=== PATIENT | female | born 1965 | race Caucasian/White ===

== ENCOUNTER 2020-08-04 13:38 | Outpatient (REF) | payer MEDICARE, OTHER, SELFPAY ==
--- NOTE | 2020-08-04 14:36 | XR_ITS ---
EXAMINATION: XR CHEST CLINICAL INFORMATION: HICCUPS. COMPARISON: 11/01/2010 chest radiographs. TECHNIQUE: 2 views of the chest were obtained. FINDINGS: The lungs are clear. The heart and mediastinal structures are unremarkable. IMPRESSION: No acute cardiopulmonary process.
== END 2020-08-04 13:39 | disposition home or self-care (01) ==
LOC: HO.XRAY 13:38
PROVIDERS: PCP Internal Medicine; Referring Provider Internal Medicine; Visit Provider Hospitalist
DX: J45.909 Unspecified asthma, uncomplicated (principal); R06.6 Hiccough; K44.9 Diaphragmatic hernia without obstruction or gangrene
CPT/HCPCS: 71046; 99214

== ENCOUNTER 2020-10-05 13:21 | Emergency (ER) | payer MEDICARE, OTHER, SELFPAY ==
[2020-10-05 13:28] VITALS: BP 114/72; PULSE 91; RESP 18; TEMP 37.3; O2SAT 97; BMI 34.5
--- NOTE | 2020-10-05 13:54 | ECG_ITS ---
Test Reason : WEAKNESS Blood Pressure : / mmHG Vent. Rate : 087 BPM Atrial Rate : 087 BPM P-R Int : 134 ms QRS Dur : 084 ms QT Int : 368 ms P-R-T Axes : 053 -29 024 degrees QTc Int : 442 ms Normal sinus rhythm Nonspecific ST abnormality Abnormal ECG When compared with ECG of 15-AUG-2013 16:06, No significant change was found Referred By: Lizbeth Urena Electronically Signed By:Juan C Bingham
[2020-10-05 14:00] VITALS: BP 124/68; PULSE 88; RESP 18; TEMP 36.9; O2SAT 97
[2020-10-05] MEDS: 0.9 % Sodium Chloride 1,000 ML 999 ML IVCONT (14:17)
[2020-10-05 14:20] LABS: Hematocrit 38.4 % (37-47); Hemoglobin 12.5 g/dl (12.0-16.0); Imm Gran Abs Auto 0.03 X10*3/uL (0.00-0.03); Imm Gran Pct Auto 0.9 % (0.0-0.4); Lymphocytes Absolute Auto 0.7 X10*3/uL (1.2-4.9); Lymphocytes Percent Auto 20.5 % (20-40); MANUAL DIFF FLAG SCAN; Mean Corpuscular HGB Conc 32.6 g/dl (31.0-35.0); Mean Corpuscular Hemoglobin 24.9 pg (27.0-33.0); Mean Corpuscular Volume 76.3 fL (80-98); Mean Platelet Volume 9.3 fL (9.4-12.3); Monocytes Absolute Auto 0.2 X10*3/uL (0.1-1.2); Neutrophils Absolute Auto 2.5 X10*3/uL (2.0-8.3); Neutrophils Percent Auto 73.6 % (45-73); Platelet Count 195 X10*3/uL (160-400); Red Blood Count 5.03 X10*6/uL (4.20-5.50); Red Cell Distribution Width 14.6 % (11.0-16.0); SCAN SMEAR FLAG 1; White Blood Count 3.4 X10*3/uL (4.8-10.8)
[2020-10-05 14:25] LABS: INTERNATIONAL NORM RATIO 1.2 (0.9-1.1); Prothrombin Time 14.2 SEC (10.8-13.0)
[2020-10-05 14:29] LABS: D Dimer < 200 NG/ML
--- NOTE | 2020-10-05 14:39 | PC.NURSE ---
IV ESTABLISHED, BLOOD OBTAINED AND SENT, MEDICATED PER EMAR. AWAITING RESULTS.
[2020-10-05 14:43] LABS: Alanine Aminotransferase 15 U/L (0-31); Albumin Level 4.3 g/dL (3.5-5.0); Alkaline Phosphatase 103 U/L (39-117); Anion Gap 15 (12-20); Aspartate Amino Transferase 24 U/L (5-31); Bilirubin Direct 0.3 mg/dL (0.0-0.5); Bilirubin Total 0.4 mg/dL (0.0-1.0); Blood Urea Nitrogen 7 mg/dL (9-16); Calcium 8.6 mg/dL (8.4-10.2); Carbon Dioxide 25 mmol/L (22-29); Chloride 104 mmol/L (96-108); Creatinine Clr Calc Pharmacy 97.5; Estimated Glomerular Filt Rate > 60; Glucose Random 137 mg/dL (60-115); Lactate Dehydrogenase 228 U/L (122-220); Magnesium 1.6 mg/dL (1.6-2.6); Potassium 4.4 mmol/l (3.3-5.1); Sodium 140 mmol/L (135-145); Total Protein 7.8 g/dL (6.5-8.0)
[2020-10-05 14:46] LABS: Glucose Urine UA NEG (NEG); Leukocyte Esterase Urine NEG (NEG); Nitrite Urine NEG (NEG); PH 6.5 (5.0-8.0); Urine Blood NEG (NEG); Urine Ketones 15 MG/DL (NEG); Urine Protein NEG (NEG-TRACE)
[2020-10-05 14:47] LABS: SLIDE REVIEW VERIFIED
[2020-10-05 14:48] LABS: Appearance Urine CLEAR; Color Urine YELLOW
[2020-10-05 14:49] LABS: Troponin-I High Sensitivity 3.6 ng/L (<3.5-17.0)
[2020-10-05 15:03] LABS: Ferritin 275 ng/mL (10-250)
[2020-10-05] MEDS: methylPREDNISolone Sod Succ/PF 125 MG/2 ML VIAL IVPUSH (15:18)
[2020-10-05] MEDS: ondansetron HCL 4 MG/2 ML VIAL IVPUSH (15:18)
--- NOTE | 2020-10-05 15:21 | ED.URI ---
HPI - URI/Sore Throat General Chief Complaint: Weakness Stated Complaint: covid Time Seen by Provider: 10/05/20 13:30 Source: patient Mode of arrival: ambulatory Limitations: no limitations History of Present Illness HPI Narrative: 55yoF c PMHx of asthma, spasm of diaphragm, hiatal hernia, obstructive sleep apnea on CPAP who was recently diagnosed with COVID-19 on 07/31/2020 presenting to the ED with complaints of generalized weakness, fatigue feeling like she is going to pass out or the past few days with a decreased appetite, cough with wheezing. Reports that she is being followed by [employer] who placed her on a Z-Jimbo and she has taken 3 days total although has been feeling very nauseated therefore was unable to take it today. Also started her on a Medrol Dosepak which she also started. Denies any fevers, vomiting, chest pain, shortness of breath, increased abdominal pain when compared to her prior, back pain, dysuria, constipation or diarrhea. Denies any other symptoms complaints or concerns at this time. Reports everyone in her household is positive for COVID including her and 2 kids. Related Data Home Medications Medication Instructions Recorded Confirmed amlodipine 5 mg tablet 5 mg PO DAILY 07/19/20 10/02/20 flu vac qs 2019(4 yr up)CD(PF) ml IM 07/19/20 10/02/20 furosemide 20 mg tablet 20 mg PO DAILY 07/19/20 10/02/20 hyoscyamine sulfate 0.125 mg tablet 0.125 mg PO QID PRN 07/19/20 10/02/20 metformin 500 mg tablet 2,000 mg PO DAILY 07/19/20 10/02/20 nystatin 100,000 unit/mL oral PO 07/19/20 10/02/20 suspension oxycodone 5 mg tablet 5 mg PO Q4H PRN 07/19/20 10/02/20 potassium chloride 20 mEq 20 meq PO DAILY 07/19/20 10/02/20 tablet,extended release(part/cryst) albuterol sulfate 90 mcg/actuation 1 - 2 puff INHALATION Q4-6H PRN 08/04/20 10/02/20 aerosol inhaler budesonide-formoterol HFA 160 2 puff INHALATION BID 08/04/20 10/02/20 mcg-4.5 mcg/actuation aerosol inhaler cholecalciferol (vitamin D3) 25 25 mcg PO DAILY 08/04/20 10/02/20 mcg (1,000 unit) capsule ibuprofen 800 mg tablet 800 mg PO Q8H 08/04/20 10/02/20 ipratropium 0.5 mg-albuterol 3 mg ml INHALATION QID 08/04/20 10/02/20 (2.5 mg base)/3 mL nebulization soln pantoprazole 40 mg tablet,delayed 40 mg PO DAILY 08/04/20 10/02/20 release vitamin E 600 unit capsule 600 unit PO DAILY 08/04/20 10/02/20 folic acid 1 mg tablet 1 mg PO DAILY 10/02/20 10/02/20 metronidazole 0.75 % topical gel TOPICAL BID 10/02/20 10/02/20 Previous Rx's Medication Instructions Recorded baclofen 10 mg tablet 10 mg PO TID #60 tab 08/04/20 Trelegy Ellipta 100 mcg-62.5 1 inh INHALATION DAILY 90 Days #3 09/05/20 mcg-25 mcg powder for inhalation ea NS azithromycin 500 mg tablet 500 mg PO DAILY 5 Days #5 tab 10/02/20 methylprednisolone 4 mg tablets in See Rx Instructions PO PER PKG DIR 10/02/20 a dose pack 6 Days #21 ea ondansetron HCl [Zofran] 4 mg PO Q8H PRN #10 tab 10/05/20 Allergies Allergy/AdvReac Type Severity Reaction Status Date / Time Penicillins Allergy Severe DIFFICULTY Verified 10/02/20 16:21 BREATHING Review of Systems Review of Systems: Constitutional : No Fever, No Chills, + fatigue, + Malaise ENT/Mouth : No sore throat, No runny nose Eyes: No Discharge Cardiovascular : No Chest Pain, No SOB Respiratory : + Cough, No Sputum, + Wheezing, No Smoke Exposure, No Dyspnea Gastrointestinal : + Nausea, No Vomiting, No Diarrhea Genitourinary : No irregular bleeding, No Dysuria, No Urinary Frequency, No Hematuria, No Urinary Incontinence, No Urgency, No Flank Pain, Musculoskeletal : No Myalgia Skin : No rash Neuro : No Headache Yes all other systems are reviewed and are negative PMFSH Past Medical History Attestation statement: The following information was validated with the patient. Medical History Asthma COVID-19 Hiatal hernia BRIANA on CPAP Spasm of diaphragm Family History Family History Father Liver disease Mother Ovarian cancer Social History Social History Alcohol intake: never Smoking Status: Never smoker Use of substances other than those prescribed or required for medical reasons: No Advance Directives: No Advance Directives Information Provided: Yes Physical Exam Vital Signs: Vital Signs: Last Vital Signs Temp 98.5 F 10/05/20 14:00 Pulse 88 10/05/20 14:00 Resp 18 10/05/20 14:00 BP 124/68 10/05/20 14:00 Pulse Ox 97 10/05/20 14:00 Body Mass Index 34.5 vital signs have been reviewed as normal and appeared to be correct. Blood pressure normal. Heart rate normal. Respiration rate normal. Temperature normal. Oxygen saturation normal. Appearance: Alert. Oriented X3. No acute distress. Head: Normal external exam. Normocephalic. Atraumatic. Eyes: PERRLA. EOMI. Conjunctiva and sclera normal. Eyelids normal. ENT: EAC normal. TM's Normal. Pharynx normal. Uvula midline. Moist mucous membranes. No trismus noted. No drooling noted. No muffled voice noted. Neck: Normal inspection. Neck supple. FROM. No adenopathy. No meningeal signs. No neck mass noted. CVS: Normal heart rate and rhythm. Heart sound normal. No murmurs noted. Pulses normal throughout. Respiratory: No respiratory distress. Painless inspiration. Breath sounds normal. No wheezes/rales/rhonchi noted. Chest nontender. No accessory muscle usage noted or decreased air movement noted. Abdomen: Soft and nontender. Bowel sounds normal in all 4 quadrants. No distention noted. No organomegaly noted. No visible injury noted. Back: Full range of motion noted. Skin: Skin warm and dry. Normal skin color. Normal skin turgor. No rashes/lesions/lacerations noted. Extremities: No lower extremity edema. No calf tenderness noted. Extremities exhibit normal range of motion. Extremities nontender. Neuro: Oriented X 3. No motor deficit. No sensory deficit. Reflexes normal. Course Course Course Narrative: 55yoF c PMHx of asthma, spasm of diaphragm, hiatal hernia, obstructive sleep apnea on CPAP who was recently diagnosed with COVID-19 on 07/31/2020 presenting to the ED with complaints of generalized weakness, fatigue feeling like she is going to pass out or the past few days with a decreased appetite, cough with wheezing. - labs obtained and patient with white blood cell count at 3.4. LDH at 228. Otherwise all other labs are within normal limits including D-dimer less than 200. UA with 15 ketones otherwise no signs of UTI. EKG is normal sinus rhythm no acute ischemic changes noted. Chest x-ray within normal limits no acute processes noted. - patient receiving 1 L of IV fluids, 125 mg of Solu-Medrol and 4 mg of Zofran. Otherwise she will be discharged home with symptomatic treatment along with instructions to return if any new or worsening symptoms to follow-up with primary care provider. Patient understands agrees the plan. MDM - URI/Sore Throat Medical Records Attestation: I reviewed the patient's medical records. Lab Data Attestation: I reviewed the patient's lab results. Result diagrams: 10/05/20 14:14 10/05/20 14:14 Labs: Lab Results 10/05/20 10/05/20 10/05/20 Range/Units 14:14 14:14 14:14 WBC 3.4 L (4.8-10.8) X10*3/uL RBC 5.03 (4.20-5.50) X10*6/uL Hgb 12.5 (12.0-16.0) g/dl Hct 38.4 (37-47) % MCV 76.3 L (80-98) fL MCH 24.9 L (27.0-33.0) pg MCHC 32.6 (31.0-35.0) g/dl RDW 14.6 (11.0-16.0) % Plt Count 195 (160-400) X10*3/uL MPV 9.3 L (9.4-12.3) fL Immature Gran % (Auto) 0.9 H (0.0-0.4) % Neut % (Auto) 73.6 H (45-73) % Lymph % (Auto) 20.5 (20-40) % [place] % (Auto) 5.0 (2-11) % Eos % (Auto) 0.0 (0-4) % Baso % (Auto) 0.0 (0-2) % Lymph # (Auto) 0.7 L (1.2-4.9) X10*3/uL [place] # (Auto) 0.2 (0.1-1.2) X10*3/uL Eos # (Auto) 0.0 (0.0-0.4) X10*3/uL Baso # (Auto) 0.0 (0.0-0.2) X10*3/uL Abs Immat Gran (auto) 0.03 (0.00-0.03) X10*3/uL Absolute Neuts (auto) 2.5 (2.0-8.3) X10*3/uL Absolute Nucleated RBC 0.000 (0.0-0.012) X10*3/uL Nucleated RBC % (auto) 0.0 (0.0-0.2) /100WBC Smear Tech's Comments VERIFIED PT 14.2 H (10.8-13.0) SEC INR 1.2 H (0.9-1.1) D-Dimer < 200 NG/ML Sodium 140 (135-145) mmol/L Potassium 4.4 (3.3-5.1) mmol/l Chloride 104 (96-108) mmol/L Carbon Dioxide 25 (22-29) mmol/L Anion Gap 15 (12-20) BUN 7 L (9-16) mg/dL Creatinine 0.67 (0.5-1.4) mg/dL Estim Creat Clear Calc 97.5 Estimated GFR > 60 Random Glucose 137 H (60-115) mg/dL Calcium 8.6 (8.4-10.2) mg/dL Magnesium 1.6 (1.6-2.6) mg/dL Ferritin 275 H (10-250) ng/mL Total Bilirubin 0.4 (0.0-1.0) mg/dL Direct Bilirubin 0.3 (0.0-0.5) mg/dL AST 24 (5-31) U/L ALT 15 (0-31) U/L Alkaline Phosphatase 103 (39-117) U/L Lactate Dehydrogenase 228 H (122-220) U/L Troponin I High Sens (<3.5-17.0) ng/L Total Protein 7.8 (6.5-8.0) g/dL Albumin 4.3 (3.5-5.0) g/dL Urine Color Urine Appearance Urine pH (5.0-8.0) Ur Specific [place] (1.005-1.025) Urine Protein (NEG-TRACE) MG/DL Urine Glucose (UA) (NEG) MG/DL Urine Ketones (NEG) MG/DL Urine Blood (NEG) Urine Nitrite (NEG) Ur Leukocyte Esterase (NEG) 10/05/20 10/05/20 Range/Units 14:14 14:21 WBC (4.8-10.8) X10*3/uL RBC (4.20-5.50) X10*6/uL Hgb (12.0-16.0) g/dl Hct (37-47) % MCV (80-98) fL MCH (27.0-33.0) pg MCHC (31.0-35.0) g/dl RDW (11.0-16.0) % Plt Count (160-400) X10*3/uL MPV (9.4-12.3) fL Immature Gran % (Auto) (0.0-0.4) % Neut % (Auto) (45-73) % Lymph % (Auto) (20-40) % [place] % (Auto) (2-11) % Eos % (Auto) (0-4) % Baso % (Auto) (0-2) % Lymph # (Auto) (1.2-4.9) X10*3/uL [place] # (Auto) (0.1-1.2) X10*3/uL Eos # (Auto) (0.0-0.4) X10*3/uL Baso # (Auto) (0.0-0.2) X10*3/uL Abs Immat Gran (auto) (0.00-0.03) X10*3/uL Absolute Neuts (auto) (2.0-8.3) X10*3/uL Absolute Nucleated RBC (0.0-0.012) X10*3/uL Nucleated RBC % (auto) (0.0-0.2) /100WBC Smear Tech's Comments PT (10.8-13.0) SEC INR (0.9-1.1) D-Dimer NG/ML Sodium (135-145) mmol/L Potassium (3.3-5.1) mmol/l Chloride (96-108) mmol/L Carbon Dioxide (22-29) mmol/L Anion Gap (12-20) BUN (9-16) mg/dL Creatinine (0.5-1.4) mg/dL Estim Creat Clear Calc Estimated GFR Random Glucose (60-115) mg/dL Calcium (8.4-10.2) mg/dL Magnesium (1.6-2.6) mg/dL Ferritin (10-250) ng/mL Total Bilirubin (0.0-1.0) mg/dL Direct Bilirubin (0.0-0.5) mg/dL AST (5-31) U/L ALT (0-31) U/L Alkaline Phosphatase (39-117) U/L Lactate Dehydrogenase (122-220) U/L Troponin I High Sens 3.6 (<3.5-17.0) ng/L Total Protein (6.5-8.0) g/dL Albumin (3.5-5.0) g/dL Urine Color YELLOW Urine Appearance CLEAR Urine pH 6.5 (5.0-8.0) Ur Specific [place] 1.010 (1.005-1.025) Urine Protein NEG (NEG-TRACE) MG/DL Urine Glucose (UA) NEG (NEG) MG/DL Urine Ketones 15 (NEG) MG/DL Urine Blood NEG (NEG) Urine Nitrite NEG (NEG) Ur Leukocyte Esterase NEG (NEG) Imaging Data Chest x-ray: Attestation: I personally reviewed and interpreted this imaging study as follows: Radiologist's impression: IMPRESSION: No acute cardiopulmonary process. ECG Data Attestation: I personally reviewed and interpreted this ECG as follows: ECG interpretation date: 10/05/20 ECG interpretation time: 14:21 Interpretation: Normal sinus rhythm with a ventricular rate of [address] abnormality no acute ischemic changes noted. On 08/15/2013. Discharge Plan Discharge Clinical Impression: COVID-19, Dehydration Patient Disposition: Home, Self-Care Instructions: Dehydration (ED), COVID-19 (Coronavirus Disease 2019) (ED) Prescriptions: New ondansetron HCl [Zofran] 4 mg tablet 4 mg PO Q8H PRN (Reason: nausea and vomiting) Qty: 10 RF: 0 No Action Trelegy Ellipta 100-62.5-25 mcg blister with device 1 inh inhalation DAILY 90 Days Qty: 3 RF: 1 folic acid 1 mg tablet 1 mg PO DAILY RF: 0 metronidazole 0.75 % gel topical BID RF: 0 methylprednisolone [Medrol (Jimbo)] 4 mg tablets,dose pack See Rx Instructions PO PER PKG DIR 6 Days Qty: 21 RF: 0 azithromycin 500 mg tablet 500 mg PO DAILY 5 Days Qty: 5 RF: 0 pantoprazole 40 mg tablet,delayed release (DR/EC) 40 mg PO DAILY RF: 0 ipratropium-albuterol 0.5 mg-3 mg(2.5 mg base)/3 mL solution for nebulization inhalation QID RF: 0 ibuprofen 800 mg tablet 800 mg PO Q8H RF: 0 budesonide-formoterol [Symbicort] 160-4.5 mcg/actuation HFA aerosol inhaler 2 puff inhalation BID RF: 0 vitamin E 600 unit capsule 600 unit PO DAILY RF: 0 cholecalciferol (vitamin D3) 25 mcg (1,000 unit) capsule 25 mcg PO DAILY RF: 0 baclofen 10 mg tablet 10 mg PO TID Qty: 60 RF: 4 Flucelvax Quad (PF) 60 mcg (15 mcg x 4)/0.5 mL syringe IM RF: 0 amlodipine 5 mg tablet 5 mg PO DAILY RF: 0 furosemide 20 mg tablet 20 mg PO DAILY RF: 0 potassium chloride 20 mEq tablet,ER particles/crystals 20 meq PO DAILY RF: 0 nystatin 100,000 unit/mL suspension PO RF: 0 oxycodone 5 mg tablet 5 mg PO Q4H PRN (Reason: pain) RF: 0 hyoscyamine sulfate 0.125 mg tablet 0.125 mg PO QID PRNRF: 0 metformin 500 mg tablet 2,000 mg PO DAILY RF: 0 albuterol sulfate 90 mcg/actuation HFA aerosol inhaler 1 - 2 puff inhalation Q4-6H PRNRF: 0 Referrals: Physician,Unknown [Primary Care Provider] - 2 days (your pcp) Print Language: Prydeinig
[2020-10-05 15:25] LABS: Procalcitonin 0.03 ng/mL
--- NOTE | 2020-10-05 16:13 | XR_ITS ---
EXAMINATION: XR CHEST CLINICAL INFORMATION: Worsening cough. Positive COVID COMPARISON: 08/04/2020 chest radiographs. TECHNIQUE: Frontal view of the chest was obtained. FINDINGS: Low lung volumes and evaluation. There is been interval development of bilateral infiltrates with peripheral distribution predominantly in the mid and lower lung barrientos. A definitive pleural effusions are not seen. The heart and mediastinal structures are unremarkable. XR/XR chest 1V IMPRESSION: Interval development of bilateral infiltrates. These are nonspecific, but are most consistent with an infectious/inflammatory process and can be seen with COVID pneumonia.
== END 2020-10-05 17:30 | disposition home or self-care (01) ==
PROVIDERS: Physician Assistant Medical; Emergency Provider Emergency Medicine Emergency Medical Services
DX: U07.1 COVID-19 (principal); R53.1 Weakness; E86.0 Dehydration; Z79.899 Other long term (current) drug therapy
CPT/HCPCS: 36415; 71045; 80048; 80076; 81003; 82728; 83615; 83735; 84145; 84484; 85025; 85379; 85610; 93005; 96361; 96374; 96375; 99284; J2405; J2930

== ENCOUNTER → 2021-02-01 15:26 | Outpatient (BNVA) | payer MEDICARE, SELFPAY | PROVIDERS: PCP Internal Medicine; Visit Provider Hospitalist | DX: G47.33 Obstructive sleep apnea (adult) (pediatric) (principal); K44.9 Diaphragmatic hernia without obstruction or gangrene; J45.40 Moderate persistent asthma, uncomplicated; B94.8 Sequelae of other specified infectious and parasitic diseases; R60.0 Localized edema; Z99.89 Dependence on other enabling machines and devices | CPT/HCPCS: 99212 ==

== ENCOUNTER 2021-02-02 10:25 | Outpatient (REF) | payer MEDICARE, SELFPAY ==
--- NOTE | ~2021-02-02 | XR_ITS ---
EXAMINATION: XR CHEST CLINICAL INFORMATION: Sequela of other specified infectious diseases. COMPARISON: 10/05/2020 TECHNIQUE: 2 views of the chest were obtained. FINDINGS: Interval resolution of previously seen airspace disease. Lungs are clear. No pleural effusion or pneumothorax. Normal heart size and pulmonary vascularity. No acute or suspicious osseous abnormalities. XR/XR chest 2V IMPRESSION: Lungs are clear
[2021-02-02 11:38] LABS: MANUAL DIFF FLAG NO
[2021-02-02 11:46] LABS: Basophils Percent Auto 0.6 % (0-2); Eosinophils Absolute Auto 0.4 X10*3/uL (0.0-0.4); Hematocrit 39.5 % (37-47); Hemoglobin 12.7 g/dl (12.0-16.0); Imm Gran Abs Auto 0.04 X10*3/uL (0.00-0.03); Imm Gran Pct Auto 0.6 % (0.0-0.4); Lymphocytes Absolute Auto 2.3 X10*3/uL (1.2-4.9); Lymphocytes Percent Auto 32.3 % (20-40); Mean Corpuscular HGB Conc 32.2 g/dl (31.0-35.0); Mean Corpuscular Hemoglobin 26.6 pg (27.0-33.0); Mean Corpuscular Volume 82.8 fL (80-98); Mean Platelet Volume 10.1 fL (9.4-12.3); Monocytes Absolute Auto 0.6 X10*3/uL (0.1-1.2); Monocytes Percent Auto 8.2 % (2-11); Neutrophils Absolute Auto 3.7 X10*3/uL (2.0-8.3); Neutrophils Percent Auto 53.3 % (45-73); Platelet Count 221 X10*3/uL (160-400); Red Blood Count 4.77 X10*6/uL (4.20-5.50); Red Cell Distribution Width 14.3 % (11.0-16.0)
[2021-02-02 12:10] LABS: B Type Natriuretic Peptide 36 pg/mL (<100)
[2021-02-02 12:20] LABS: Anion Gap 16 (12-20); Blood Urea Nitrogen 23 mg/dL (9-16); Calcium 9.5 mg/dL (8.4-10.2); Carbon Dioxide 24 mmol/L (22-29); Chloride 105 mmol/L (96-108); Estimated Glomerular Filt Rate > 60; Glucose Random 98 mg/dL (60-115); Potassium 4.5 mmol/L (3.3-5.1); Sodium 140 mmol/L (135-145)
[2021-02-02 12:53] LABS: Erythrocyte Sedimentation Rate 6 MM/HR (0-20)
[2021-02-03 12:47] LABS: Anti DNA DS Antibody 1 IU/mL
[2021-02-05 23:03] LABS: Anti Nuclear Antibody Pattern Nuclear, Speckled; Anti Nuclear Antibody Screen POSITIVE (NEGATIVE)
== END 2021-02-02 10:26 | disposition home or self-care (01) ==
LOC: HO.LAB 10:25
PROVIDERS: PCP Internal Medicine; Visit Provider Hospitalist
DX: B94.8 Sequelae of other specified infectious and parasitic diseases (principal); R60.0 Localized edema
CPT/HCPCS: 36415; 71046; 80048; 83880; 85025; 85652; 86038; 86039; 86225

== ENCOUNTER 2021-03-29 11:24 | Outpatient (REF) | payer MEDICARE, SELFPAY ==
[2021-03-30 22:03] LABS: Complement C3 123 mg/dL (83-193)
[2021-03-31 14:57] LABS: Anti DNA DS Antibody 1 IU/mL; Antibody to SS-A Antigen <1.0 NEG AI (<1.0 NEG); Antibody to SS-B Antigen <1.0 NEG AI (<1.0 NEG)
[2021-04-04 07:28] LABS: Aldolase 4.4 U/L (<=8.1)
== END 2021-03-29 11:25 | disposition home or self-care (01) ==
LOC: HO.LAB 11:24
PROVIDERS: PCP Internal Medicine; Visit Provider Hospitalist
DX: R76.8 Other specified abnormal immunological findings in serum (principal)
CPT/HCPCS: 36415; 82085; 82550; 86160; 86225; 86235

== ENCOUNTER → 2021-07-03 08:39 | Outpatient (BNVA) | payer MEDICARE, SELFPAY | PROVIDERS: PCP Internal Medicine; Visit Provider Hospitalist | DX: J45.40 Moderate persistent asthma, uncomplicated (principal); G47.33 Obstructive sleep apnea (adult) (pediatric); K44.9 Diaphragmatic hernia without obstruction or gangrene; R60.0 Localized edema; K43.9 Ventral hernia without obstruction or gangrene; Z99.89 Dependence on other enabling machines and devices | CPT/HCPCS: 99212 ==

== ENCOUNTER 2021-11-23 14:33 | Emergency (ER) | payer MEDICARE, SELFPAY ==
--- NOTE | 2021-11-23 | ECG_ITS ---
Test Reason : dizziness Blood Pressure : / mmHG Vent. Rate : 073 BPM Atrial Rate : 073 BPM P-R Int : 148 ms QRS Dur : 090 ms QT Int : 380 ms P-R-T Axes : 043 -30 015 degrees QTc Int : 418 ms Normal sinus rhythm Left axis deviation Nonspecific ST and T wave abnormality Borderline ECG When compared with ECG of 05-OCT-2020 14:21, No significant change was found Referred By: Generic ED Physician Electronically Signed By:ROSETTE NEWMAN
--- NOTE | ~2021-11-23 | CT_ITS ---
EXAMINATION: CT HEAD WITHOUT CONTRAST CLINICAL INFORMATION: Weakness. COMPARISON: None TECHNIQUE: Contiguous axial imaging was performed from the skull base to vertex without intravenous administration of contrast. This CT examination was performed using dose optimization techniques as appropriate, variously including the following: *Automated exposure control *Adjustment of mA and/or kV according to patient size (this includes techniques or standardized protocols for targeted exams where dose is matched to indication/reason for exam; i.e. extremities or head) *Use of iterative reconstruction technique DLP: 666 mGy-cm FINDINGS: There is no evidence of acute intracranial hemorrhage or territorial infarction. No abnormal mass effect or midline shift is seen. Peace to white matter differentiation is well preserved. No extra-axial fluid collections are identified. The ventricles are normal size. There is no abnormal attenuation within the brain parenchyma. The osseous structures and soft tissues are normal. The mastoid air cells are well aerated. There is a fluid level and mucosal thickening nearly opacifying the left sphenoid sinus with milder aerosolized mucosal secretions and fluid in the partially visualized right sphenoid sinus cavity. There is mild left maxillary and ethmoid sinus mucosal thickening. CT/CT head/brain wo con IMPRESSION: No acute intracranial pathology. Normal CT scan of the head. Fluid level and mucosal thickening nearly opacifying the left sphenoid sinus cavity and scattered areas of mucosal thickening elsewhere in the paranasal sinuses. Correlate for any symptoms of acute sinusitis.
[2021-11-23 14:34] VITALS: BP 148/88; PULSE 81; RESP 16; TEMP 36.6; O2SAT 100; BMI 36.2
--- NOTE | 2021-11-23 16:53 | ED_ITS ---
HPI - General Adult General Chief complaint: General Medical Stated complaint: HIGH BP DIZZY NAUSEA Time Seen by Provider: 11/23/21 16:46 History of Present Illness HPI narrative: Patient is 56-year-old female presents today with having weakness dizziness. Patient worried that her blood pressure is elevated. Her last check was 150/90. Patient has a baseline history of hypertension is on amlodipine. No chest pain no focal weakness. Patient received her coronavirus vaccine and a booster. No nausea no vomiting. Positive generalized malaise. Patient from home. Related Data Home Medications Medication Instructions Recorded Confirmed amlodipine 5 mg tablet 5 mg PO DAILY 07/19/20 10/02/20 flu vac qs 2019(4 yr ml IM 07/19/20 10/02/20 up)CD(PF) furosemide 20 mg tablet 20 mg PO DAILY 07/19/20 10/02/20 hyoscyamine sulfate 0.125 mg 0.125 mg PO QID PRN 07/19/20 10/02/20 tablet metformin 500 mg tablet 2,000 mg PO DAILY 07/19/20 10/02/20 nystatin 100,000 unit/mL PO 07/19/20 10/02/20 oral suspension oxycodone 5 mg tablet 5 mg PO Q4H PRN 07/19/20 10/02/20 potassium chloride 20 mEq 20 meq PO DAILY 07/19/20 10/02/20 tablet,extended release(part/cryst) albuterol sulfate 90 1 - 2 puff INHALATION Q4-6H 08/04/20 10/02/20 mcg/actuation PRN aerosol inhaler budesonide-formoterol HFA 2 puff INHALATION BID 08/04/20 10/02/20 160 mcg-4.5 mcg/actuation aerosol inhaler (Symbicort) cholecalciferol (vitamin D3) 25 mcg PO DAILY 08/04/20 10/02/20 25 mcg (1,000 unit) capsule ibuprofen 800 mg tablet 800 mg PO Q8H 08/04/20 10/02/20 ipratropium 0.5 mg-albuterol ml INHALATION QID 08/04/20 10/02/20 3 mg (2.5 mg base)/3 mL nebulization soln pantoprazole 40 mg 40 mg PO DAILY 08/04/20 10/02/20 tablet,delayed release vitamin E 600 unit capsule 600 unit PO DAILY 08/04/20 10/02/20 folic acid 1 mg tablet 1 mg PO DAILY 10/02/20 10/02/20 metronidazole 0.75 % topical TOPICAL BID 10/02/20 10/02/20 gel cyclobenzaprine 5 mg tablet 5 mg PO TID 02/01/21 enoxaparin 150 mg/mL mg SUBCUT 07/03/21 subcutaneous syringe Previous Rx's Medication Instructions Recorded baclofen 10 mg tablet 10 mg PO TID #60 tab 08/04/20 azithromycin 500 mg tablet 500 mg PO DAILY 5 Days #5 tab 10/02/20 methylprednisolone 4 mg tablets in See Rx Instructions PO PER PKG 10/02/20 DIR a dose pack (Medrol (Jimbo)) 6 Days #21 ea ondansetron HCl 4 mg tablet 4 mg PO Q8H PRN #10 tab 10/05/20 (Zofran) Trelegy Ellipta 100 mcg-62.5 1 inh INHALATION DAILY 90 Days #3 05/10/21 mcg-25 mcg powder for inhalation ea NS (mbwxxskbwsn-kgrhemeox-[id number]) Trelegy Ellipta 100 mcg-62.5 1 inh INHALATION DAILY 90 Days #3 11/22/21 mcg-25 mcg powder for inhalation ea NS (fctmbtwxltq-nhwymmnxv-kbewyokk) Allergies Allergy/AdvReac Type Severity Reaction Status Date / Time Penicillins Allergy Severe DIFFICULTY Verified 07/03/21 09:18 BREATHING Review of Systems Verdana 4l Review of Systems: Verdana 4d No chest pain or Verdana 4d shortness of breath no focal weakness all system reviewed otherwise negative Verdana 4d Yes all other systems are reviewed and are negative [facility] Past Medical History Medical History (Updated 11/23/21 @ 18:10 by Melia Church MD) RENEE positive Asthma COVID-19 Extremity edema Hiatal hernia BRIANA on CPAP 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 Spasm of diaphragm Family History Family History Father Liver disease Mother Ovarian cancer Social History Social History (Updated 07/03/21 @ 09:22 by STACIA Obrien) Alcohol intake: never Patient Tobacco Use Status: Never used Tobacco Advance Directives: Yes Advance Directives Information Provided: Yes Advance Directives on File: No Patient : No Physical Exam Verdana 4l Vital Signs: Verdana 4d Verdana 4d Vital Signs: Verdana 4d Verdana 4Bd Last Vital Signs Verdana 4d [facility] New 4d [facility] New 4d Temp 98.3 F 11/23/21 17:09 [facility] New 4d Pulse 75 11/23/21 17:09 [facility] New 4d Resp 16 11/23/21 17:09 BP 165/81 H 11/23/21 17:09 Pulse Ox 99 11/23/21 17:09 BMI result Body Mass Index 36.2 Appearance: Alert. Oriented X3. No acute distress. Eyes: Pupils equal, round and reactive to light. ENT: Pharynx normal. Neck: Normal inspection. Neck supple. No lymph nodes noted. No crepitus CVS: Normal heart rate and rhythm. Pulses normal. Normal S1 and S2 Respiratory: No respiratory distress. Breath sounds normal. No Wheezing. No rales Abdomen: Soft and nontender. No rigidity. No distention. good BS x4 Skin: Skin warm and dry. Normal skin color. Normal skin turgor. Extremities: No lower extremity edema. Neurovascular intact to all extremities. No Lacerations. No Rash Neuro: Oriented X 3. No motor deficit. No sensory deficit. Moving all extermities. No slurred speech Medical Decision Making MDM Narrative Medical decision making narrative: patient's EKG showed a sinus rhythm heart rate is 70 MA QRS QT within normal limits there is flipped T-waves over V1 to V3 and also in the inferior leads. No acute ST segment elevation noted. These findings were also noted on a previous EKG. patient is neuro intact. EKG normal. Electrolytes unremarkable. COVID test negative. Blood pressure is slightly elevated given reassurance patient told to follow up on an outpatient basis. In stable condition. Lab Data Lab results reviewed: Yes I reviewed the patient's lab results. Result diagrams: 11/23/21 17:29 11/23/21 17:30 Labs: Lab Results 11/23/21 11/23/21 11/23/21 Range/Units 17:29 17:29 17:30 WBC 8.3 (4.8-10.8) X10*3/uL RBC 4.64 (4.20-5.50) X10*6/uL Hgb 12.3 (12.0-16.0) g/dl Hct 37.3 (37.0-47.0) % MCV 80.4 (80.0-98.0) fL MCH 26.5 L (27.0-33.0) pg MCHC 33.0 (31.0-35.0) g/dl RDW 13.6 (11.0-16.0) % Plt Count 227 (160-400) X10*3/uL MPV 9.6 (9.4-12.3) fL Immature Gran % (Auto) 0.4 (0.0-0.4) % Neut % (Auto) 53.6 (45-73) % Lymph % (Auto) 33.3 (20-40) % [place] % (Auto) 7.8 (2-11) % Eos % (Auto) 4.3 H (0-4) % Baso % (Auto) 0.6 (0-2) % Lymph # (Auto) 2.8 (1.2-4.9) X10*3/uL [place] # (Auto) 0.7 (0.1-1.2) X10*3/uL Eos # (Auto) 0.4 (0.0-0.4) X10*3/uL Baso # (Auto) 0.1 (0.0-0.2) X10*3/uL Abs Immat Gran (auto) 0.03 (0.00-0.03) X10*3/uL Absolute Neuts (auto) 4.5 (2.0-8.3) x10*3/uL Absolute Nucleated RBC 0.000 (0.0-0.012) X10*3/uL Nucleated RBC % (auto) 0.0 (0.0-0.2) /100WBC Sodium 141 (135-145) mmol/L Potassium 3.9 (3.3-5.1) mmol/L Chloride 107 (96-108) mmol/L Carbon Dioxide 26 (22-29) mmol/L Anion Gap 12 (12-20) BUN 16 (9-16) mg/dL Creatinine 0.78 (0.5-1.4) mg/dL Estim Creat Clear Calc 84.8 Estimated GFR > 60 Random Glucose 107 (60-115) mg/dL Calcium 9.7 (8.4-10.2) mg/dL Total Bilirubin 0.4 (0.0-1.0) mg/dL Direct Bilirubin 0.2 (0.0-0.5) mg/dL AST 14 D (5-31) U/L ALT 20 (0-31) U/L Alkaline Phosphatase 91 (39-117) U/L Troponin I High Sens (<3.5-17.0) ng/L Total Protein 7.4 (6.5-8.0) g/dL Albumin 4.3 (3.5-5.0) g/dL COVID-19 (CRUZITO) Negative (Negative) COVID-19 Clin Com See Note 11/23/21 Range/Units 17:30 WBC (4.8-10.8) X10*3/uL RBC (4.20-5.50) X10*6/uL Hgb (12.0-16.0) g/dl Hct (37.0-47.0) % MCV (80.0-98.0) fL MCH (27.0-33.0) pg MCHC (31.0-35.0) g/dl RDW (11.0-16.0) % Plt Count (160-400) X10*3/uL MPV (9.4-12.3) fL Immature Gran % (Auto) (0.0-0.4) % Neut % (Auto) (45-73) % Lymph % (Auto) (20-40) % [place] % (Auto) (2-11) % Eos % (Auto) (0-4) % Baso % (Auto) (0-2) % Lymph # (Auto) (1.2-4.9) X10*3/uL [place] # (Auto) (0.1-1.2) X10*3/uL Eos # (Auto) (0.0-0.4) X10*3/uL Baso # (Auto) (0.0-0.2) X10*3/uL Abs Immat Gran (auto) (0.00-0.03) X10*3/uL Absolute Neuts (auto) (2.0-8.3) x10*3/uL Absolute Nucleated RBC (0.0-0.012) X10*3/uL Nucleated RBC % (auto) (0.0-0.2) /100WBC Sodium (135-145) mmol/L Potassium (3.3-5.1) mmol/L Chloride (96-108) mmol/L Carbon Dioxide (22-29) mmol/L Anion Gap (12-20) BUN (9-16) mg/dL Creatinine (0.5-1.4) mg/dL Estim Creat Clear Calc Estimated GFR Random Glucose (60-115) mg/dL Calcium (8.4-10.2) mg/dL Total Bilirubin (0.0-1.0) mg/dL Direct Bilirubin (0.0-0.5) mg/dL AST (5-31) U/L ALT (0-31) U/L Alkaline Phosphatase (39-117) U/L Troponin I High Sens < 3.5 (<3.5-17.0) ng/L Total Protein (6.5-8.0) g/dL Albumin (3.5-5.0) g/dL COVID-19 (CRUZITO) (Negative) COVID-19 Clin Com Discharge Plan Discharge Clinical Impression: Hypertension, Weakness Patient Disposition: Home, Self-Care Instructions: Weakness (ED), Hypertension (ED) Prescriptions: No Action Trelegy Ellipta 100-62.5-25 mcg blister with device 1 inh inhalation DAILY 90 Days Qty: 3 3RF Trelegy Ellipta 100-62.5-25 mcg blister with device 1 inh inhalation DAILY 90 Days Qty: 3 3RF ondansetron HCl [Zofran] 4 mg tablet 4 mg PO Q8H PRN (Reason: nausea and vomiting) Qty: 10 0RF folic acid 1 mg tablet 1 mg PO DAILY 0RF metronidazole 0.75 % gel topical BID 0RF methylprednisolone [Medrol (Jimbo)] 4 mg tablets,dose pack See Rx Instructions PO PER PKG DIR 6 Days Qty: 21 0RF Rx Instructions: PO PER PKG DIR azithromycin 500 mg tablet 500 mg PO DAILY 5 Days Qty: 5 0RF enoxaparin 150 mg/mL syringe subcut 0RF pantoprazole 40 mg tablet,delayed release (DR/EC) 40 mg PO DAILY 0RF ipratropium-albuterol 0.5 mg-3 mg(2.5 mg base)/3 mL solution for nebulization inhalation QID 0RF ibuprofen 800 mg tablet 800 mg PO Q8H 0RF budesonide-formoterol [Symbicort] 160-4.5 mcg/actuation HFA aerosol inhaler 2 puff inhalation BID 0RF vitamin E 600 unit capsule 600 unit PO DAILY 0RF cholecalciferol (vitamin D3) 25 mcg (1,000 unit) capsule 25 mcg PO DAILY 0RF baclofen 10 mg tablet 10 mg PO TID Qty: 60 4RF Flucelvax Quad [id number] (PF) 60 mcg (15 mcg x 4)/0.5 mL syringe IM 0RF amlodipine 5 mg tablet 5 mg PO DAILY 0RF furosemide 20 mg tablet 20 mg PO DAILY 0RF potassium chloride 20 mEq tablet,ER particles/crystals 20 meq PO DAILY 0RF nystatin 100,000 unit/mL suspension PO 0RF oxycodone 5 mg tablet 5 mg PO Q4H PRN (Reason: pain) 0RF hyoscyamine sulfate 0.125 mg tablet 0.125 mg PO QID PRN0RF metformin 500 mg tablet 2,000 mg PO DAILY 0RF albuterol sulfate 90 mcg/actuation HFA aerosol inhaler 1 - 2 puff inhalation Q4-6H PRN0RF Referrals: Bo Hayden MD [Primary Care Provider] - 2 days ( Blood pressure recheck in 2 days.)
[2021-11-23 17:09] VITALS: BP 165/81; PULSE 75; RESP 16; TEMP 36.8; O2SAT 99
[2021-11-23 17:36] LABS: MANUAL DIFF FLAG NO
[2021-11-23 17:48] LABS: Basophils Absolute Auto 0.1 X10*3/uL (0.0-0.2); Basophils Percent Auto 0.6 % (0-2); Eosinophils Absolute Auto 0.4 X10*3/uL (0.0-0.4); Eosinophils Percent Auto 4.3 % (0-4); Hematocrit 37.3 % (37.0-47.0); Hemoglobin 12.3 g/dl (12.0-16.0); Imm Gran Abs Auto 0.03 X10*3/uL (0.00-0.03); Imm Gran Pct Auto 0.4 % (0.0-0.4); Lymphocytes Absolute Auto 2.8 X10*3/uL (1.2-4.9); Lymphocytes Percent Auto 33.3 % (20-40); Mean Corpuscular Hemoglobin 26.5 pg (27.0-33.0); Mean Corpuscular Volume 80.4 fL (80.0-98.0); Mean Platelet Volume 9.6 fL (9.4-12.3); Monocytes Absolute Auto 0.7 X10*3/uL (0.1-1.2); Monocytes Percent Auto 7.8 % (2-11); Neutrophils Absolute Auto 4.5 x10*3/uL (2.0-8.3); Neutrophils Percent Auto 53.6 % (45-73); Platelet Count 227 X10*3/uL (160-400); Red Blood Count 4.64 X10*6/uL (4.20-5.50); Red Cell Distribution Width 13.6 % (11.0-16.0); White Blood Count 8.3 X10*3/uL (4.8-10.8)
[2021-11-23 18:00] VITALS: BP 125/64; PULSE 71; RESP 16; TEMP 36.8; O2SAT 99
[2021-11-23 18:02] LABS: Alanine Aminotransferase 20 U/L (0-31); Albumin Level 4.3 g/dL (3.5-5.0); Alkaline Phosphatase 91 U/L (39-117); Anion Gap 12 (12-20); Aspartate Amino Transferase 14 U/L (5-31); Bilirubin Direct 0.2 mg/dL (0.0-0.5); Bilirubin Total 0.4 mg/dL (0.0-1.0); Blood Urea Nitrogen 16 mg/dL (9-16); Calcium 9.7 mg/dL (8.4-10.2); Carbon Dioxide 26 mmol/L (22-29); Chloride 107 mmol/L (96-108); Creatinine Clr Calc Pharmacy 84.8; Estimated Glomerular Filt Rate > 60; Glucose Random 107 mg/dL (60-115); Potassium 3.9 mmol/L (3.3-5.1); Sodium 141 mmol/L (135-145); Total Protein 7.4 g/dL (6.5-8.0)
[2021-11-23 18:05] LABS: Troponin-I High Sensitivity < 3.5 ng/L (<3.5-17.0)
[2021-11-23 18:06] LABS: COVID-19 Test Negative (Negative); IDNOW Serial# 9DD0AD1C
[2021-11-23 18:20] LABS: TSH reflex Free T4 1.27 uIU/mL (0.32-4.0)
== END 2021-11-23 18:48 | disposition home or self-care (01) ==
PROVIDERS: Emergency Provider Emergency Medicine Emergency Medical Services; PCP Internal Medicine
DX: R53.1 Weakness (principal); I10 Essential (primary) hypertension; Z20.822 Contact with and (suspected) exposure to COVID-19
CPT/HCPCS: 36415; 70450; 80048; 80076; 84443; 84484; 85025; 87635; 93005; 99284

== ENCOUNTER 2021-12-28 09:01 | Outpatient (REF) | payer MEDICARE, SELFPAY ==
[2021-12-28 10:07] LABS: MANUAL DIFF FLAG NO
[2021-12-28 10:27] LABS: Basophils Absolute Auto 0.1 X10*3/uL (0.0-0.2); Basophils Percent Auto 0.9 % (0-2); Eosinophils Absolute Auto 0.4 X10*3/uL (0.0-0.4); Eosinophils Percent Auto 5.2 % (0-4); Hematocrit 40.8 % (37.0-47.0); Hemoglobin 13.1 g/dl (12.0-16.0); Imm Gran Abs Auto 0.03 X10*3/uL (0.00-0.03); Imm Gran Pct Auto 0.4 % (0.0-0.4); Lymphocytes Absolute Auto 2.3 X10*3/uL (1.2-4.9); Lymphocytes Percent Auto 29.7 % (20-40); Mean Corpuscular HGB Conc 32.1 g/dl (31.0-35.0); Mean Corpuscular Hemoglobin 26.7 pg (27.0-33.0); Mean Corpuscular Volume 83.3 fL (80.0-98.0); Monocytes Absolute Auto 0.5 X10*3/uL (0.1-1.2); Monocytes Percent Auto 6.1 % (2-11); Neutrophils Absolute Auto 4.4 x10*3/uL (2.0-8.3); Neutrophils Percent Auto 57.7 % (45-73); Platelet Count 245 X10*3/uL (160-400); Red Cell Distribution Width 14.2 % (11.0-16.0); White Blood Count 7.7 X10*3/uL (4.8-10.8)
[2021-12-28 10:38] LABS: D Dimer High Sensitivity < 150 NG/ML
[2021-12-28 11:06] LABS: Anion Gap 14 (12-20); Blood Urea Nitrogen 22 mg/dL (9-16); Carbon Dioxide 24 mmol/L (22-29); Chloride 105 mmol/L (96-108); Estimated Glomerular Filt Rate > 60; Glucose Random 139 mg/dL (60-115); Potassium 4.4 mmol/L (3.3-5.1); Sodium 139 mmol/L (135-145)
[2021-12-28 11:12] LABS: Erythrocyte Sedimentation Rate 7 MM/HR (0-20)
[2021-12-28 11:23] LABS: TSH reflex Free T4 1.25 uIU/mL (0.32-4.0)
[2021-12-31 12:32] LABS: Anti DNA DS Antibody 1 IU/mL; Antibody to SS-A Antigen <1.0 NEG AI (<1.0 NEG); Antibody to SS-B Antigen <1.0 NEG AI (<1.0 NEG)
[2021-12-31 12:35] LABS: Cardiolipin IgG Ab <2.0 GPL-U/mL; Cardiolipin IgM Ab <2.0 MPL-U/mL
[2021-12-31 13:46] LABS: Complement C3 118 mg/dL (83-193)
== END 2021-12-28 09:02 | disposition home or self-care (01) ==
LOC: HO.LAB 09:01
PROVIDERS: PCP Internal Medicine; Visit Provider Hospitalist
DX: R00.2 Palpitations (principal); R07.9 Chest pain, unspecified; I26.99 Other pulmonary embolism without acute cor pulmonale; B94.8 Sequelae of other specified infectious and parasitic diseases; R60.0 Localized edema; G47.33 Obstructive sleep apnea (adult) (pediatric); K44.9 Diaphragmatic hernia without obstruction or gangrene; J45.40 Moderate persistent asthma, uncomplicated; K43.9 Ventral hernia without obstruction or gangrene; R07.1 Chest pain on breathing; Z99.89 Dependence on other enabling machines and devices
CPT/HCPCS: 36415; 80048; 84443; 85025; 85379; 85652; 86147; 86160; 86225; 86235; 99212

== ENCOUNTER 2022-04-02 15:09 | Outpatient (REF) | payer MEDICARE, SELFPAY ==
--- NOTE | ~2022-04-02 | XR_ITS ---
EXAMINATION: XR CHEST CLINICAL INFORMATION: R07.81 - Pleurodynia COMPARISON: Chest radiographs 02/02/2021, 10/05/2020 TECHNIQUE: 2 views of the chest were obtained. FINDINGS: No pneumothorax or pleural reaction. The lungs are clear. The vascularity is normal. There is no airspace consolidation or groundglass opacity or effusion. Heart size normal. The hilar and mediastinal contours and bony structures are similar to previous exam. No acute intrathoracic disease. XR/XR chest 2V IMPRESSION: Unremarkable examination.
[2022-04-02 15:20] LABS: MANUAL DIFF FLAG NO
[2022-04-02 15:42] LABS: Basophils Absolute Auto 0.1 X10*3/uL (0.0-0.2); Basophils Percent Auto 0.7 % (0-2); Eosinophils Absolute Auto 0.7 X10*3/uL (0.0-0.4); Eosinophils Percent Auto 8.6 % (0-4); Hematocrit 38.3 % (37.0-47.0); Hemoglobin 12.3 g/dl (12.0-16.0); Imm Gran Abs Auto 0.03 X10*3/uL (0.00-0.03); Imm Gran Pct Auto 0.3 % (0.0-0.4); Lymphocytes Absolute Auto 2.8 X10*3/uL (1.2-4.9); Lymphocytes Percent Auto 32.6 % (20-40); Mean Corpuscular HGB Conc 32.1 g/dl (31.0-35.0); Mean Corpuscular Hemoglobin 26.9 pg (27.0-33.0); Mean Corpuscular Volume 83.8 fL (80.0-98.0); Mean Platelet Volume 10.3 fL (9.4-12.3); Monocytes Absolute Auto 0.7 X10*3/uL (0.1-1.2); Monocytes Percent Auto 7.9 % (2-11); Neutrophils Absolute Auto 4.3 x10*3/uL (2.0-8.3); Neutrophils Percent Auto 49.9 % (45-73); Platelet Count 224 X10*3/uL (160-400); Red Blood Count 4.57 X10*6/uL (4.20-5.50); Red Cell Distribution Width 14.3 % (11.0-16.0); White Blood Count 8.6 X10*3/uL (4.8-10.8)
[2022-04-02 16:01] LABS: Alanine Aminotransferase 16 U/L (0-31); Albumin Level 4.4 g/dL (3.5-5.0); Alkaline Phosphatase 79 U/L (39-117); Anion Gap 15 (12-20); Aspartate Amino Transferase 14 U/L (5-31); Bilirubin Direct < 0.2 mg/dL (0.0-0.5); Bilirubin Total 0.3 mg/dL (0.0-1.0); Blood Urea Nitrogen 23 mg/dL (9-16); Calcium 9.4 mg/dL (8.4-10.2); Carbon Dioxide 22 mmol/L (22-29); Chloride 108 mmol/L (96-108); Estimated Glomerular Filt Rate 55; Glucose Random 161 mg/dL (60-115); Potassium 4.5 mmol/L (3.3-5.1); Sodium 140 mmol/L (135-145); Total Protein 7.5 g/dL (6.5-8.0)
[2022-04-02 16:31] LABS: Erythrocyte Sedimentation Rate 7 MM/HR (0-20)
== END 2022-04-02 15:10 | disposition home or self-care (01) ==
LOC: HO.LAB 15:09
PROVIDERS: PCP Internal Medicine; Visit Provider Hospitalist
DX: R07.81 Pleurodynia (principal); R07.9 Chest pain, unspecified; J45.40 Moderate persistent asthma, uncomplicated; K44.9 Diaphragmatic hernia without obstruction or gangrene; I26.99 Other pulmonary embolism without acute cor pulmonale; G47.33 Obstructive sleep apnea (adult) (pediatric); Z88.0 Allergy status to penicillin; Z99.89 Dependence on other enabling machines and devices
CPT/HCPCS: 36415; 71046; 80048; 80076; 85025; 85652; 99212

== ENCOUNTER 2022-09-30 15:01 | Outpatient (REF) | payer MEDICARE, SELFPAY ==
[2022-09-30 15:19] LABS: MANUAL DIFF FLAG NO
[2022-09-30 16:33] LABS: Basophils Absolute Auto 0.1 X10*3/uL (0.0-0.2); Basophils Percent Auto 0.8 % (0-2); Eosinophils Absolute Auto 0.3 X10*3/uL (0.0-0.4); Eosinophils Percent Auto 3.7 % (0-4); Hematocrit 38.9 % (37.0-47.0); Hemoglobin 12.7 g/dl (12.0-16.0); Imm Gran Abs Auto 0.03 X10*3/uL (0.00-0.03); Imm Gran Pct Auto 0.4 % (0.0-0.4); Lymphocytes Absolute Auto 2.8 X10*3/uL (1.2-4.9); Lymphocytes Percent Auto 33.2 % (20-40); Mean Corpuscular HGB Conc 32.6 g/dl (31.0-35.0); Mean Corpuscular Hemoglobin 26.8 pg (27.0-33.0); Mean Corpuscular Volume 82.1 fL (80.0-98.0); Mean Platelet Volume 10.6 fL (9.4-12.3); Monocytes Absolute Auto 0.6 X10*3/uL (0.1-1.2); Monocytes Percent Auto 7.2 % (2-11); Neutrophils Absolute Auto 4.5 x10*3/uL (2.0-8.3); Neutrophils Percent Auto 54.7 % (45-73); Platelet Count 254 X10*3/uL (160-400); Red Blood Count 4.74 X10*6/uL (4.20-5.50); Red Cell Distribution Width 13.7 % (11.0-16.0); White Blood Count 8.3 X10*3/uL (4.8-10.8)
[2022-09-30 16:56] LABS: Alanine Aminotransferase 15 U/L (0-31); Albumin Level 4.5 g/dL (3.5-5.0); Alkaline Phosphatase 89 U/L (39-117); Anion Gap 13 (12-20); Aspartate Amino Transferase 14 U/L (5-31); Bilirubin Direct < 0.2 mg/dL (0.0-0.5); Bilirubin Total 0.3 mg/dL (0.0-1.0); Blood Urea Nitrogen 26 mg/dL (9-16); Calcium 9.6 mg/dL (8.4-10.2); Carbon Dioxide 24 mmol/L (22-29); Chloride 105 mmol/L (96-108); Estimated Glomerular Filt Rate > 60; Glucose Random 138 mg/dL (60-115); Potassium 4.1 mmol/L (3.3-5.1); Sodium 138 mmol/L (135-145); Total Protein 7.4 g/dL (6.5-8.0)
[2022-09-30 17:12] LABS: Erythrocyte Sedimentation Rate 7 MM/HR (0-20)
[2022-10-03 14:44] LABS: Cyclic Citrullinated Peptide <16 UNITS
[2022-10-06 11:33] LABS: Anti Nuclear Antibody Pattern Nuclear, Speckled; Anti Nuclear Antibody Screen POSITIVE (NEGATIVE)
== END 2022-09-30 15:02 | disposition home or self-care (01) ==
LOC: HO.LAB 15:01
PROVIDERS: PCP Internal Medicine; Visit Provider Hospitalist
DX: R07.81 Pleurodynia (principal); R06.00 Dyspnea, unspecified; M19.90 Unspecified osteoarthritis, unspecified site; R07.1 Chest pain on breathing; K44.9 Diaphragmatic hernia without obstruction or gangrene; K43.9 Ventral hernia without obstruction or gangrene; G47.33 Obstructive sleep apnea (adult) (pediatric); Z99.89 Dependence on other enabling machines and devices
CPT/HCPCS: 36415; 80048; 80076; 85025; 85652; 86038; 86039; 86200; 99212

== ENCOUNTER 2023-03-27 14:34 | Outpatient (REF) | payer MEDICARE, SELFPAY ==
[2023-03-27 15:43] LABS: MANUAL DIFF FLAG NO
[2023-03-27 17:40] LABS: Basophils Absolute Auto 0.1 X10*3/uL (0.0-0.2); Eosinophils Absolute Auto 0.4 X10*3/uL (0.0-0.4); Eosinophils Percent Auto 4.8 % (0-4); Hematocrit 38.6 % (37.0-47.0); Hemoglobin 12.4 g/dl (12.0-16.0); Imm Gran Abs Auto 0.04 X10*3/uL (0.00-0.03); Imm Gran Pct Auto 0.5 % (0.0-0.4); Lymphocytes Absolute Auto 2.5 X10*3/uL (1.2-4.9); Lymphocytes Percent Auto 31.3 % (20-40); Mean Corpuscular HGB Conc 32.1 g/dl (31.0-35.0); Mean Corpuscular Hemoglobin 27.1 pg (27.0-33.0); Mean Corpuscular Volume 84.3 fL (80.0-98.0); Mean Platelet Volume 10.2 fL (9.4-12.3); Monocytes Absolute Auto 0.6 X10*3/uL (0.1-1.2); Monocytes Percent Auto 7.8 % (2-11); Neutrophils Absolute Auto 4.3 x10*3/uL (2.0-8.3); Neutrophils Percent Auto 54.6 % (45-73); Platelet Count 249 X10*3/uL (160-400); Red Blood Count 4.58 X10*6/uL (4.20-5.50); Red Cell Distribution Width 13.9 % (11.0-16.0); White Blood Count 7.9 X10*3/uL (4.8-10.8)
[2023-03-27 17:49] LABS: D Dimer High Sensitivity < 150 NG/ML
[2023-03-27 18:15] LABS: Anion Gap 15 (12-20); Blood Urea Nitrogen 23 mg/dL (9-16); Calcium 9.4 mg/dL (8.4-10.2); Carbon Dioxide 22 mmol/L (22-29); Chloride 107 mmol/L (96-108); Estimated Glomerular Filt Rate 57; Glucose Random 98 mg/dL (60-115); Magnesium 1.5 mg/dL (1.6-2.6); Potassium 4.8 mmol/L (3.3-5.1); Sodium 139 mmol/L (135-145)
[2023-03-27 18:36] LABS: Erythrocyte Sedimentation Rate 7 MM/HR (0-20)
== END 2023-03-27 14:35 | disposition home or self-care (01) ==
LOC: HO.LAB 14:34
PROVIDERS: PCP Internal Medicine; Visit Provider Hospitalist
DX: J45.40 Moderate persistent asthma, uncomplicated (principal); R60.0 Localized edema; R07.81 Pleurodynia; K44.9 Diaphragmatic hernia without obstruction or gangrene; M19.90 Unspecified osteoarthritis, unspecified site; G47.33 Obstructive sleep apnea (adult) (pediatric); R76.8 Other specified abnormal immunological findings in serum; Z79.899 Other long term (current) drug therapy; Z99.89 Dependence on other enabling machines and devices
CPT/HCPCS: 36415; 80048; 83735; 85025; 85379; 85652; 99212

== ENCOUNTER 2023-04-11 15:02 | Outpatient (REF) | payer MEDICARE, SELFPAY ==
--- NOTE | ~2023-04-11 | XR_ITS ---
EXAMINATION: XR CHEST CLINICAL INFORMATION: Pleurodynia COMPARISON: Previous chest x-ray most recent March 2022 TECHNIQUE: 2 views of the chest were obtained. FINDINGS: The cardiac and mediastinal contours are stable. The lungs are clear. No pleural effusion or pneumothorax. Old right rib fractures. Degenerative changes of the spine. XR/XR chest 2V IMPRESSION: No evidence for acute disease in the chest.
== END 2023-04-11 15:03 | disposition home or self-care (01) ==
LOC: HO.XRAY 15:02
PROVIDERS: Visit Provider Hospitalist
DX: R07.81 Pleurodynia (principal)
CPT/HCPCS: 71046

== ENCOUNTER 2023-09-04 13:01 | Outpatient (AMB) | payer MEDICARE, SELFPAY ==
--- NOTE | 2023-09-04 13:11 | A.OFFVIS_ITS ---
Intake Vital Signs 09/04/23 13:12 Height 5 ft 2 in Weight 197 lb BMI 36.0 Pulse 85 Pulse Source Pulse Oximeter Pulse Oximetry (%) 96 Oxygen Delivery Method Room Air Intake Visit Reasons: asthma Hot Car Operator Required: No Allergies Penicillins Allergy (Severe, Verified 09/04/23 13:13) DIFFICULTY BREATHING HPI HPI Comments History of Present Illness Details The patient is a 58-year-old woman with known history of asthma in addition to hiatal hernia. over the summer she did have surgery for her abdominal hernia with significant manipulations of the muscles of her torso. After surgery she has been complaining of some pleuritic back and chest pain. Primarily to the left side and is not always. Moderate in severity. It does keep her from taking a deep breath. She did undergo a CT scan of the abdomen over the summer demonstrating some atelectasis mainly to the left base but also to the right. She is also having issues with her inhalers. She was responded very well to the Symbicort and Tudorza. However, her insurance is no longer covering the Tudorza. I have given a prescription with free sample of trelegy, but she was afraid to use it. We talked about and she agreed to use it she will pick it up to pharmacy. In the meantime she appears to have some diaphragmatic spasms and will be recently to try antispasmodic medication to see if she gets some relief. 07/03/2021 The patient is here for a [facility] follow-up visit. Since we last spoke she did follow-up with vascular surgery. 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 Therefore, the patient was placed on Lovenox. She is scheduled to follow-up with a cross country coach soon. She is getting bruising in the abdomen. She also was complaining of while abdominal distension. It may be that her hernia is reoccurring. In regards her breathing breathing seems to be doing well on the current respiratory therapy. She has not had to use any prednisone. She does have a rescue inhaler that she uses seldom. the CPAP therapy continues to be affecting beneficial. she has been sometimes not using it. I did reassure her that she should continue using it on a regular basis. She has had a lot of weight loss. If the patient feels like she is doing better at some point we can repeat her sleep study. However, now with all her medical issues treating obstructive sleep apnea and will be very important. 12/28/2021 the patient is here for a pulm onary follow-up visit. She is off the Lovenox now. She is complaining of pleuritic chest discomfort. Primarily on the left lung area. With a history of blood clots in genetic mutation I will have her undergo a D-dimer. In the meantime she is going to need surgery for her recurrent hernia. This all is scheduled to have been in the coming weeks. Her respiratory status is stable. She continues on the trilogy with good effect. Denies any significant shortness of breath. She does continue on the CPAP. The CPAP therapy continues to be affecting beneficial. She is using more than 4 hours a night. Today the patient will go for blood work. Still concern for the possibility of connective tissue condition potentially resulting in pleuritis. Therefore additional blood work will be requested. 04/02/2022 the patient is here for a pulmonary follow-up visit. Since we last spoke the patient was evaluated by surgery at [facility]. She did undergo her ventral surgery repair. It was an extensive surgery requiring a significant incision. The patient was recovering well and then started developing right upper quadrant pleuritic chest discomfort. She also developed a cough productive in nature with yellow sputum. She did discuss this with her surgeon. The felt it was related to the fact that she was cutting down her pain medication. Today the patient has been feeling a little better although she still coughing her discomfort still there [id number] severity. On my examination she does have some bronchial breath sounds bringing up the possibility of a right lower lobe airspace disease. The patient is high risk due to their extensive abdominal surgery and likely atelectasis. Will go ahead and treated for potential pneumonia and will also request blood work and a chest x-ray. Patient continues use her CPAP. CPAP therapy has been affecting beneficial. She did start using after surgery because her discomfort but I did encourage her to start using it. 09/30/2022 the patient is here for a pulmonary follow-up visit. From a respiratory status the patient is doing better on the Trelegy. However, it is extremely expensive for. In addition to that she hits the donut hole in the zarate that is very difficult for her to get any of her medications. Therefore we talked about different options in order to see if we can get her on a regimen that is more financially reasonable. She will try to use a good Rx card for AirDuo and will send Incruse to the pharmacy. she still complains of significant arthralgias and myalgias. She is concerned about the positive RENEE. She is following closely with Rheumatology. She is considering a 2nd opinion. In addition to this the patient has underlying sleep apnea. The CPAP therapy has been affecting beneficial. She does use it for more than 4 hours a night. 03/27/2023 the patient is here for a pulmonary follow-up visit. She continues on the Trelegy. She was able to get some samples and became a little bit more recently. I do also have a coupon card to provide her. Therefore she can continue her respiratory medications that appears to be working for her. She is still having episodes of pleuritic back and chest pain. Primarily on the right side. Denies any palpitations or any hemoptysis. She does have some lower extremity edema. We did have her undergo blood work including a D-dimer that was negative. Therefore we can hold off on a CT angio. In the meantime will request a chest x-ray to see if acted explain her ongoing symptoms. If the x- ray is not helpful then will have to get a CT scan of the chest to address for any underlying pleural base disease. The patient does have underlying connective tissue disorders. she also has significant arthritis. She has had a positive RENEE and the rest of the workup that has been done has been inconclusive. Therefore, will refer to Rheumatology in order to further evaluate for connective tissue conditions. Patient continues use her CPAP every night. CPAP therapy continues to be affecting beneficial. She does use it for 4 hours a night. 09/04/2023 the patient is here for a pulmonary follow-up visit. The patient is still recovering from her abdominal surgeries. She is feeling well though he is had significant amount of discomfort. She had more fluid accumulation had to have a drain replaced. The area appears to be healing better. In the meantime she has not been using her CPAP. She has been sleeping better and she has not been complaining of significant snoring or daytime drowsiness. Her Waldwick score is decreased down to 7/24. Therefore will continue to monitor her symptoms and she will continue with positional therapy. We will consider repeating the sleep study during the next visit. She also stopped using the Trelegy inhaler because it was too expensive. She does have the nebulized therapy with DuoNeb that she uses up to twice a day which appears to be effective and more reasonable giles. Therefore will go ahead and hold off on the Trelegy at this time. The patient also has been complaining of some left- sided pleuritic chest discomfort and back discomfort upon deep breathing specially after her surgery. She has not had a chest x-ray as of yet. The for will have her get an x-ray today. She will continue with the current respiratory therapy and will follow-up in 6-8 months. Which time will discuss the whole CPAP issue. If her chest x-ray is abnormal I will call her further recommendations based on the forthcoming data. 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 COVID-19 BRIANA on CPAP Hiatal hernia Asthma Spasm of diaphragm Family History Father Liver disease Mother Ovarian cancer Social History (Updated 07/03/21 @ 09:22 by STACIA Obrien) Alcohol intake: never Patient Tobacco Use Status: Never used Tobacco Review of Systems Const Denies fever(s) and Denies night sweats ENT Denies change in voice, Denies lip swelling, Denies mouth pain, Reports nasal congestion, Reports nasal discharge and Denies tongue swelling Card Reports chest pain, Reports leg edema and Reports dyspnea on exertion Resp Denies change in phlegm color, Denies chest congestion, Reports cough, Denies hemoptysis, Reports pain on inspiration, Reports pain with cough, Reports dyspnea on exertion and Denies wheezing GI Reports abdominal pain Musc Reports as per HPI, Reports back pain, Reports myalgias and Reports arthralgias Skin/Breast Denies rash Neuro Denies Neuro-related abnormal movements Psych Denies no additional complaints Errol/Lymph Denies easy bleeding and Denies lymphadenopathy Aller/Immun Denies lip swelling, Denies tongue swelling and Denies wheezing Physical Exam Vital Signs: Last Vital Signs Pulse 85 09/04/23 13:12 Pulse Ox 96 09/04/23 13:12 Oxygen Delivery Method Room Air 09/04/23 13:12 BMI result Body Mass Index 36.0 Const General: alert Neck Neck: Yes normal visual inspection, Yes full ROM and Yes no lymphadenopathy Chest Chest palpation & inspection: normal inspection of the chest Resp Effort & Inspection: normal respiratory effort Auscultation: diminished lung sounds Cardio Rate: regular rate Rhythm: regular rhythm Heart sounds: S1 normal heart sound present and S2 normal heart sound present GI Palpation (GI): Soft to palpation, nontender and Other GI palpation findings present (reducible ventral hernia) Auscultation: normal bowel sounds Skin General skin exam: rashes and/or lesions noted Extrem General: Yes edema (LE bilateral-non pitting) Right upper extremity: no cyanosis Immunizations pneumoc 20-edgardo conj-dip cr(PF) 0.5 mL IM syringe Performing Provider: Richard Olivares MD Performing Location: [facility] Administered by: Katerina Salamanca LPN on 09/04/23 13:51 Dose Route Admin Location Dispensed Lot Number Expiration Date NDC Senior User Experience Architect 0.5 mL IM Left Deltoid 0.5 mL [id number] 05/19/24 1323-4125-86 [employer] VIS Given Date VIS Provided VIS Publication Date 09/04/23 Single Vaccine 23 Eligibility Eligibility Date Funding Source Not [facility] Eligible 09/04/23 Private Assessment & Plan Assessment & Plan (1) BRIANA on CPAP: Code(s): G47.33 - Obstructive sleep apnea (adult) (pediatric); Z99.89 - Dependence on other enabling machines and devices (2) Hiatal hernia: Code(s): K44.9 - Diaphragmatic hernia without obstruction or gangrene (3) Asthma: Code(s): J45.909 - Unspecified asthma, uncomplicated Qualifiers: Asthma complication type: uncomplicated Asthma persistence: persistent Asthma severity: moderate Qualified Code(s): J45.40 - Moderate persistent asthma, uncomplicated (4) Ventral hernia: Comment: s/p repair Code(s): K43.9 - Ventral hernia without obstruction or gangrene Qualifiers: Obstruction and gangrene presence: without obstruction or gangrene Qualified Code(s): K43.9 - Ventral hernia without obstruction or gangrene (5) Pleuritic chest pain: Code(s): R07.81 - Pleurodynia Plan holding continue Trelegy DuoNebs as needed CXR hold CPAP, will reorder PSG in the future to reassess Follow-up 6-8 months Orders: Orders XR chest 2V Today R07.81 - Pleurodynia Pneumococcal 20 Immunization Today Z23 - Encounter for immunization Coding Level of Care Code Est Pt Level 4 (63598) Diagnoses BRIANA on CPAP G47.33; Z99.89 Hiatal hernia K44.9 Moderate persistent asthma without complication J45.40 Asthma complication type: uncomplicated Asthma persistence: persistent Asthma severity: moderate Ventral hernia without obstruction or gangrene K43.9 Obstruction and gangrene presence: without obstruction or gangrene Pleuritic chest pain R07.81 Time Spent (min) 16
[2023-09-04 13:12] VITALS: PULSE 85; O2SAT 96; BMI 36.0
== END 2023-09-04 13:33 | disposition home or self-care (01) ==
PROVIDERS: PCP Internal Medicine; Visit Provider Hospitalist
DX: G47.33 Obstructive sleep apnea (adult) (pediatric) (principal); Z99.89 Dependence on other enabling machines and devices; K44.9 Diaphragmatic hernia without obstruction or gangrene; J45.40 Moderate persistent asthma, uncomplicated; K43.9 Ventral hernia without obstruction or gangrene; R07.81 Pleurodynia
CPT/HCPCS: 99214

== ENCOUNTER 2023-09-04 13:01 | Outpatient (REF) | payer MEDICARE, SELFPAY ==
--- NOTE | ~2023-09-04 | XR_ITS ---
EXAMINATION: XR CHEST CLINICAL INFORMATION: Reason for Exam R07.81 - Pleurodynia COMPARISON: Chest radiograph 04/11/2023 TECHNIQUE: 2 views of the chest FINDINGS: Lines and tubes: None. Clear lungs. No pleural effusion. No pneumothorax. Unchanged cardiomediastinal silhouette. XR/XR chest 2V IMPRESSION: * Clear lungs.
== END 2023-09-04 13:02 | disposition home or self-care (01) ==
LOC: HO.XRAY 13:01
PROVIDERS: PCP Internal Medicine; Visit Provider Hospitalist
DX: Z23 Encounter for immunization (principal); R07.81 Pleurodynia
CPT/HCPCS: 71046; 90471; 90677; 99212

== ENCOUNTER 2023-10-07 10:46 | Outpatient (AMB) | payer MEDICARE, SELFPAY ==
--- NOTE | 2023-10-07 10:51 | MHC.OFFVIS ---
Intake Vital Signs 10/07/23 10:52 Height 5 ft 2 in Weight 200 lb 13.458 oz BMI 36.7 BP 100/60 Blood Pressure Location Rt radial Pulse 83 Pulse Source Pulse Oximeter Temp 97 F Temp Source Skin Pulse Oximetry (%) 99 Oxygen Delivery Method Room Air Intake Visit Reasons: OA/abnormal lab Intake Note: New pt presents today for consult. H/o OA Former patient of Dr. Fei ATC. Loss Control Engineer Required: No Accompanied by: Self / Same As Patient Allergies Penicillins Allergy (Severe, Verified 10/07/23 10:56) DIFFICULTY BREATHING Medication List - Last Reconciled 10/07/23 by Arti Bustillos MD albuterol sulfate 90 mcg/actuation 1 - 2 puffs inhalation Q4-6H PRN cetirizine (Zyrtec) 10 mg PO DAILY PRN cholecalciferol (vitamin D3) 25 mcg PO DAILY ipratropium-albuterol 0.5 mg-3 mg(2.5 mg base)/3 mL 3 mL inhalation QID losartan 50 mg PO DAILY metformin 1,000 mg PO BID naproxen sodium (Aleve) 220 mg PO BID PRN nebulizers As directed pantoprazole 40 mg PO DAILY Trelegy Ellipta 100-62.5-25 mcg (hwhdwowntbz-[id number]) 1 inh inhalation DAILY 90 days NS HPI HPI Comments History of Present Illness Details This is a 58-year-old female presents for evaluation of positive RENEE. Patient states that for years she has been having diffuse body pains and weakness. She has pain in her hands, shoulders, legs, shins, knees. She has going up and down the stairs. She had feels that she has muscle pain and weakness. She is unaware of any family history of an autoimmune rheumatic disease. 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 There is no history of recurrent miscarriages. She denies any skin rashes. Denies any fevers. She denies any history suggestive of Raynaud's. She was evaluated by at least 2 rheumatologists. Most recent of which was Dr. Enamorado at [facility] within last year. She states that she was seen 4-[address] Enamorado and blood work was ordered and it was unremarkable according to patient. 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 COVID-19 BRIANA on CPAP Hiatal hernia Asthma Spasm of diaphragm Surgical History Hx of hernia repair Family History Father Liver disease Alcoholic cirrhosis of liver Mother Ovarian cancer Social History Household Members: Spouse and Children Alcohol intake: current Alcohol intake frequency: holidays/special occasions only Patient Tobacco Use Status: Never used Tobacco Current occupational status: unemployed Female Reproductive History Menstrual Total pregnancies: 2 Review of Systems Const Reports fatigue, Reports weakness and Reports weight loss Eyes Reports dry eyes Card Reports dyspnea Resp Reports dyspnea and Reports wheezing GI Reports heartburn Musc Reports arthralgias, Reports muscle weakness and Reports stiffness Skin/Breast Reports alopecia and Reports unusual bruising Neuro Reports weakness Psych Reports depression Endo Reports fatigue and Reports polydipsia Aller/Immun Reports wheezing Physical Exam Vital Signs: Last Vital Signs Temp 97 F 10/07/23 10:52 Pulse 83 10/07/23 10:52 BP 100/60 10/07/23 10:52 Pulse Ox 99 10/07/23 10:52 Oxygen Delivery Method Room Air 10/07/23 10:52 BMI result Body Mass Index 36.7 Const General: cooperative, healthy appearing and comfortable Nutritional Appearance: obese morbidly obese Orientation/consciousness: patient oriented x3 Limitations: no limitations HEENT Head: Yes normocephalic and Yes atraumatic Mouth: moist mucous membranes Resp Effort & Inspection: normal respiratory effort and able to speak in complete sentences Auscultation: clear to auscultation bilaterally Cardio Rate: regular rate Rhythm: regular rhythm Skin General skin exam: no rashes or lesions noted Neuro General: patient oriented x3 Extrem Other: Osteoarthritic changes of both hands with prominent Heberden's nodes but no active synovitis Positive empty cans test and positive speed's test bilaterally Negative infraspinatus test and lift-off test bilaterally Normal nailfold capillaroscopy Bilateral knee crepitus and pain with full flexion and extension Bilateral trochanteric bursa area tenderness Bilateral tender calf muscles without swelling, erythema or tightness Assessment & Plan Assessment & Plan (1) RENEE positive: Code(s): R76.8 - Other specified abnormal immunological findings in serum Plan: This is a 58-year-old female who presents for evaluation of a positive RENEE. Previous labs showed positive RENEE in high titers, in a speckled pattern. Subsequent sub serologies were negative. Including RF/CCP/SSA/SSB/SCL 70/Gibson/PLANT CONTROL AIDE. I do not see any evidence of an autoimmune disease upon evaluation today. Follow-up as needed She mentions that her labs show elevated kappa and lambda chains. I do not have those records. I suggested evaluation by Hematology (2) Trochanteric bursitis of both hips: Code(s): M70.61 - Trochanteric bursitis, right hip; M70.62 - Trochanteric bursitis, left hip Plan: I suggested home exercises. Plan I spent minutes reviewing patient's chart, evaluating patient, counseling patient and documenting in the chart Coding Level of Care Code New Pt Level 4 (78980) Diagnoses RENEE positive R76.8 Trochanteric bursitis of both hips M70.61; M70.62
[2023-10-07 10:52] VITALS: BP 100/60; PULSE 83; TEMP 36.1; O2SAT 99; BMI 36.7
== END 2023-10-07 12:08 | disposition home or self-care (01) ==
PROVIDERS: PCP Internal Medicine; Visit Provider Student in an Organized Health Care Education/Training Program
DX: R76.8 Other specified abnormal immunological findings in serum (principal); M70.61 Trochanteric bursitis, right hip; M70.62 Trochanteric bursitis, left hip
CPT/HCPCS: 99204

== ENCOUNTER → 2023-10-07 10:46 | Outpatient (BNVA) | payer MEDICARE, SELFPAY | PROVIDERS: PCP Internal Medicine; Visit Provider Student in an Organized Health Care Education/Training Program | DX: R76.8 Other specified abnormal immunological findings in serum (principal); M70.61 Trochanteric bursitis, right hip; M70.62 Trochanteric bursitis, left hip | CPT/HCPCS: 99202 ==

== ENCOUNTER 2024-02-25 10:50 | Outpatient (AMB) | payer MEDICARE, SELFPAY ==
[2024-02-25 10:54] VITALS: BP 122/72; PULSE 79; O2SAT 99; BMI 37.5
--- NOTE | 2024-02-25 10:54 | MHC.OFFVIS ---
Vital Signs 02/25/24 10:54 Height 5 ft 2 in Weight 205 lb BMI 37.5 BP 122/72 Blood Pressure Location Lt brachial Position Sitting Pulse 79 Pulse Source Doppler Pulse Oximetry (%) 99 Oxygen Delivery Method Room Air Intake Visit Reasons: asthma : 6 month f/u Allergies Penicillins Allergy (Severe, Verified 10/07/23 10:56) DIFFICULTY BREATHING HPI Comments Details: The patient is a 58-year-old woman with known history of asthma in addition to hiatal hernia. over the summer she did have surgery for her abdominal hernia with significant manipulations of the muscles of her torso. After surgery she has been complaining of some pleuritic back and chest pain. Primarily to the left side and is not always. Moderate in severity. It does keep her from taking a deep breath. She did undergo a CT scan of the abdomen over the summer demonstrating some atelectasis mainly to the left base but also to the right. She is also having issues with her inhalers. She was responded very well to the Symbicort and Tudorza. However, her insurance is no longer covering the Tudorza. I have given a prescription with free sample of trelegy, but she was afraid to use it. We talked about and she agreed to use it she will pick it up to pharmacy. In the meantime she appears to have some diaphragmatic spasms and will be recently to try antispasmodic medication to see if she gets some relief. 09/30/2022 the patient is here for a pulmonary follow-up visit. From a respiratory status the patient is doing better on the Trelegy. However, it is extremely expensive for. In addition to that she hits the donut hole in the [place] that is very difficult for her to get any of her medications. Therefore we talked about different options in order to see if we can get her on a regimen that is more financially reasonable. She will try to use a good Rx card for AirDuo and will send Incruse to the pharmacy. she still complains of significant arthralgias and myalgias. She is concerned about the positive RENEE. She is following closely with Rheumatology. She is considering a 2nd opinion. In addition to this the patient has underlying sleep apnea. The CPAP therapy has been affecting beneficial. She does use it for more than 4 hours a night. 03/27/2023 the patient is here for a pulmonary follow-up visit. She continues on the Trelegy. She was able to get some samples and became a little bit more recently. I do also have a coupon card to provide her. Therefore she can continue her respiratory medications that appears to be working for her. She is still having episodes of pleuritic back and chest pain. Primarily on the right side. Denies any palpitations or any hemoptysis. She does have some lower extremity edema. We did have her undergo blood work including a D-dimer that was negative. Therefore we can hold off on a CT angio. In the meantime will request a chest x-ray to see if acted explain her ongoing symptoms. If the x-ray is not helpful then will have to get a CT scan of the chest to address for any underlying pleural base disease. The patient does have underlying connective tissue disorders. she also has significant arthritis. She has had a positive RENEE and the rest of the workup that has been done has been inconclusive. Therefore, will refer to Rheumatology in order to further evaluate for connective tissue conditions. Patient continues use her CPAP every night. CPAP therapy continues to be affecting beneficial. She does use it for 4 hours a night. 09/04/2023 the patient is here for a pulmonary follow-up visit. The patient is still recovering from her abdominal surgeries. She is feeling well though he is had significant amount of discomfort. She had more fluid accumulation had to have a drain replaced. The area appears to be healing better. In the meantime she has not been using her CPAP. She has been sleeping better and she has not been complaining of significant snoring or daytime drowsiness. Her Sawyer score is decreased down to 7/24. Therefore will continue to monitor her symptoms and she will continue with positional therapy. We will consider repeating the sleep study during the next visit. She also stopped using the Trelegy inhaler because it was too expensive. She does have the nebulized therapy with DuoNeb that she uses up to twice a day which appears to be effective and more reasonable giles. Therefore will go ahead and hold off on the Trelegy at this time. The patient also has been complaining of some left-sided pleuritic chest discomfort and back discomfort upon deep breathing specially after her surgery. She has not had a chest x-ray as of yet. The for will have her get an x-ray today. She will continue with the current respiratory therapy and will follow-up in 6-8 months. Which time will discuss the whole CPAP issue. If her chest x-ray is abnormal I will call her further recommendations based on the forthcoming data. 02/25/2024 the patient is here for a pulmonary follow-up visit. The patient overall has been doing fair. She still complains of his ongoing symptoms of dizziness weakness fatigue just does not feel good overall. Breathing landis she is doing okay. She is responding well to the inhaler although is extremely expensive for her. She did get samples from her primary care and she has been using it sparingly to try to make it last. At this point will go ahead and switch her back to her nebulized treatments with the DuoNeb in addition to budesonide in order to see about getting her effective treatments more reasonable. The patient also has had issues with anemia. That can also be contributing to her underlying symptoms. Will go ahead and repeat her blood work I do believe that previously she was seeing Dr. Ledbetter from Hematology. Will go ahead and refer her to Hematology here in order for her to address her significant anemia iron deficiency and potentially need for IV iron since she has not responding to her oral supplementation. Indeed this will help her breathing and will help her other constitutional symptoms. 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 COVID-19 BRIANA on CPAP Hiatal hernia Asthma Spasm of diaphragm Surgical History Hx of hernia repair Family History Father Liver disease Alcoholic cirrhosis of liver Mother Ovarian cancer Social History Household Members: Spouse and Children Alcohol intake: current Alcohol intake frequency: holidays/special occasions only Patient Tobacco Use Status: Never used Tobacco Current occupational status: unemployed Review of Systems Const Denies fever(s) and Denies night sweats ENT Denies change in voice, Reports dizziness, Denies lip swelling, Denies mouth pain, Reports nasal congestion, Reports nasal discharge and Denies tongue swelling Card Reports chest pain, Reports leg edema and Reports dyspnea on exertion Resp Denies change in phlegm color, Denies chest congestion, Reports cough, Denies hemoptysis, Reports dyspnea on exertion and Denies wheezing GI Reports abdominal pain Musc Reports as per HPI, Reports back pain, Reports myalgias and Reports arthralgias Skin/Breast Denies rash Neuro Denies Neuro-related abnormal movements and Reports dizziness Psych Denies no additional complaints Errol/Lymph Denies easy bleeding and Denies lymphadenopathy Aller/Immun Denies lip swelling, Denies tongue swelling and Denies wheezing Physical Exam Vital Signs: Last Vital Signs Pulse 79 02/25/24 10:54 BP 122/72 02/25/24 10:54 Pulse Ox 99 02/25/24 10:54 Oxygen Delivery Method Room Air 02/25/24 10:54 BMI result Body Mass Index 37.5 Const General: alert Neck Neck: Yes normal visual inspection, Yes full ROM and Yes no lymphadenopathy Chest Chest palpation & inspection: normal inspection of the chest Resp Effort & Inspection: normal respiratory effort Auscultation: diminished lung sounds Cardio Rate: regular rate Rhythm: regular rhythm Heart sounds: S1 normal heart sound present and S2 normal heart sound present GI Palpation (GI): Soft to palpation, nontender and Other GI palpation findings present (reducible ventral hernia) Auscultation: normal bowel sounds Skin General skin exam: rashes and/or lesions noted Extrem General: Yes edema (LE bilateral-non pitting) Right upper extremity: no cyanosis Assessment & Plan Assessment & Plan (1) BRIANA on CPAP: Code(s): G47.33 - Obstructive sleep apnea (adult) (pediatric); Z99.89 - Dependence on other enabling machines and devices Category: Medical (2) Hiatal hernia: Code(s): K44.9 - Diaphragmatic hernia without obstruction or gangrene Category: Medical (3) Asthma: Code(s): J45.909 - Unspecified asthma, uncomplicated Category: Medical Qualifiers: Asthma complication type: uncomplicated Asthma persistence: persistent Asthma severity: moderate Qualified Code(s): J45.40 - Moderate persistent asthma, uncomplicated (4) Ventral hernia: Comment: s/p repair Code(s): K43.9 - Ventral hernia without obstruction or gangrene Category: Medical Qualifiers: Obstruction and gangrene presence: without obstruction or gangrene Qualified Code(s): K43.9 - Ventral hernia without obstruction or gangrene (5) Pleuritic chest pain: Code(s): R07.81 - Pleurodynia Category: Medical (6) RENEE positive: Code(s): R76.8 - Other specified abnormal immunological findings in serum Category: Medical (7) Anemia: Code(s): D64.9 - Anemia, unspecified Category: Medical Qualifiers: Anemia type: unspecified type Qualified Code(s): D64.9 - Anemia, unspecified (8) Asthma-COPD overlap syndrome: Code(s): J44.89 - Other specified chronic obstructive pulmonary disease Category: Medical Plan holding Tez Payne BID Add budesradhaie bloodword positional sleep therapy, no CPAP at this time Hematology referral Follow-up 6 months Orders: Orders Erythrocyte Sedimentation Rate Today D64.9 - Anemia, unspecified, R07.1 - Chest pain on breathing, R76.8 - Other specified abnormal immunological findings in serum RENEE Reflex Titer and Pattern Today D64.9 - Anemia, unspecified, R07.1 - Chest pain on breathing, R76.8 - Other specified abnormal immunological findings in serum ANCA Vasculitides Today D64.9 - Anemia, unspecified, R07.1 - Chest pain on breathing, R76.8 - Other specified abnormal immunological findings in serum Complete Blood Count Auto Diff Today D64.9 - Anemia, unspecified, R07.1 - Chest pain on breathing, R76.8 - Other specified abnormal immunological findings in serum Immunoglobulin E Today D64.9 - Anemia, unspecified, R07.1 - Chest pain on breathing, R76.8 - Other specified abnormal immunological findings in serum Anti DNA DS Antibody Today D64.9 - Anemia, unspecified, R07.1 - Chest pain on breathing, R76.8 - Other specified abnormal immunological findings in serum Sjogren's Antibodies Today D64.9 - Anemia, unspecified, R07.1 - Chest pain on breathing, R76.8 - Other specified abnormal immunological findings in serum Referrals Hematology & Oncology Referral D64.9 - Anemia, unspecified, R07.1 - Chest pain on breathing, R76.8 - Other specified abnormal immunological findings in serum Medications: New budesonide 0.25 mg (2 mL) inhalation DAILY 60 mL 11RF 30 days J44.89 - Other specified chronic obstructive pulmonary disease Changed From ipratropium-albuterol 0.5 mg-3 mg(2.5 mg base)/3 mL 3 mL inhalation QID 180 mL 0RF J44.89 - Other specified chronic obstructive pulmonary disease To ipratropium-albuterol 0.5 mg-3 mg(2.5 mg base)/3 mL 3 mL inhalation BID 180 mL 11RF 30 days J44.89 - Other specified chronic obstructive pulmonary disease Coding Level of Care Code Tele Est Pt Level 4 (20082) Diagnoses BRIANA on CPAP G47.33; Z99.89 Hiatal hernia K44.9 Moderate persistent asthma without complication J45.40 Asthma complication type: uncomplicated Asthma persistence: persistent Asthma severity: moderate Ventral hernia without obstruction or gangrene K43.9 Obstruction and gangrene presence: without obstruction or gangrene Pleuritic chest pain R07.81 RENEE positive R76.8 Anemia, unspecified type D64.9 Anemia type: unspecified type Asthma-COPD overlap syndrome J44.89 Time Spent (min) 17
== END 2024-02-25 11:22 | disposition home or self-care (01) ==
PROVIDERS: PCP Internal Medicine; Visit Provider Hospitalist
DX: G47.33 Obstructive sleep apnea (adult) (pediatric) (principal); Z99.89 Dependence on other enabling machines and devices; J45.40 Moderate persistent asthma, uncomplicated; R07.81 Pleurodynia; K44.9 Diaphragmatic hernia without obstruction or gangrene; R76.8 Other specified abnormal immunological findings in serum; D64.9 Anemia, unspecified; J44.89 Other specified chronic obstructive pulmonary disease
CPT/HCPCS: 99214

== ENCOUNTER 2024-02-25 10:50 | Outpatient (REF) | payer MEDICARE, SELFPAY ==
[2024-02-25 11:45] LABS: MANUAL DIFF FLAG NO
[2024-02-25 12:04] LABS: Basophils Absolute Auto 0.1 X10*3/uL (0.0-0.2); Basophils Percent Auto 0.6 % (0-2); Eosinophils Absolute Auto 0.5 X10*3/uL (0.0-0.4); Eosinophils Percent Auto 6.9 % (0-4); Hematocrit 35.2 % (37.0-47.0); Hemoglobin 10.9 g/dl (12.0-16.0); Imm Gran Abs Auto 0.03 X10*3/uL (0.00-0.03); Imm Gran Pct Auto 0.4 % (0.0-0.4); Lymphocytes Absolute Auto 2.3 X10*3/uL (1.2-4.9); Lymphocytes Percent Auto 29.7 % (20-40); Mean Corpuscular Hemoglobin 23.6 pg (27.0-33.0); Mean Corpuscular Volume 76.2 fL (80.0-98.0); Mean Platelet Volume 10.1 fL (9.4-12.3); Monocytes Absolute Auto 0.6 X10*3/uL (0.1-1.2); Monocytes Percent Auto 7.6 % (2-11); Neutrophils Absolute Auto 4.3 x10*3/uL (2.0-8.3); Neutrophils Percent Auto 54.8 % (45-73); Platelet Count 262 X10*3/uL (160-400); Red Blood Count 4.62 X10*6/uL (4.20-5.50); Red Cell Distribution Width 15.2 % (11.0-16.0); White Blood Count 7.8 X10*3/uL (4.8-10.8)
[2024-02-25 12:57] LABS: Erythrocyte Sedimentation Rate 10 MM/HR (0-20)
[2024-02-26 15:09] LABS: Anti DNA DS Antibody 1 IU/mL; Antibody to SS-A Antigen <1.0 NEG AI (<1.0 NEG); Antibody to SS-B Antigen <1.0 NEG AI (<1.0 NEG); Myeloperoxidase Antibody <1.0 AI; Proteinase 3 PR3 Antibodies <1.0 AI
[2024-02-27 23:38] LABS: Immunoglobulin E 122 kU/L (<OR=114)
[2024-02-29 12:45] LABS: Anti Nuclear Antibody Pattern Nuclear, Speckled; Anti Nuclear Antibody Screen POSITIVE (NEGATIVE)
== END 2024-02-25 10:51 | disposition home or self-care (01) ==
LOC: HO.LAB 10:50
PROVIDERS: PCP Internal Medicine; Visit Provider Hospitalist
DX: R07.1 Chest pain on breathing (principal); R76.8 Other specified abnormal immunological findings in serum; D64.9 Anemia, unspecified; K44.9 Diaphragmatic hernia without obstruction or gangrene; Z99.89 Dependence on other enabling machines and devices; J45.40 Moderate persistent asthma, uncomplicated; J43.9 Emphysema, unspecified
CPT/HCPCS: 36415; 82785; 85025; 85652; 86021; 86038; 86039; 86225; 86235; 99212

== ENCOUNTER → 2024-03-10 13:43 | Outpatient (BNV) | payer MEDICARE, SELFPAY | PROVIDERS: PCP Internal Medicine; Referring Provider Hospitalist; Visit Provider Internal Medicine | DX: D64.9 Anemia, unspecified (principal) | CPT/HCPCS: 99204; 99213; 99214 ==

== ENCOUNTER 2024-04-06 11:30 | Outpatient (RCR) | payer MEDICARE, SELFPAY ==
[2024-03-19 10:41] VITALS: BP 125/76; PULSE 78; RESP 20; TEMP 37.2; O2SAT 97
[2024-03-19] MEDS: 0.9 % Sodium Chloride Flush 10 ML SYRINGE 5 ML IVFLUSH (10:50)
[2024-03-19] MEDS: Iron Sucrose Complex 200 MG in 0.9 % Sodium Chloride 100 ML 440 MG IV (10:51)
[2024-03-23 09:32] VITALS: BMI 37.1
[2024-03-23 09:34] VITALS: BP 117/65; PULSE 87; RESP 20; TEMP 36.5; O2SAT 97
[2024-03-23] MEDS: 0.9 % Sodium Chloride Flush 10 ML SYRINGE 5 ML IVFLUSH (09:37)
[2024-03-23] MEDS: Iron Sucrose Complex 200 MG in 0.9 % Sodium Chloride 100 ML 440 MG IV (09:42)
--- NOTE | 2024-03-23 10:27 | HO.INF ---
venofer 440mls/hr- 200mg- ran for 15 minutes
[2024-04-01 09:40] VITALS: BP 136/51; PULSE 88; RESP 18; TEMP 37; O2SAT 100
[2024-04-01] MEDS: Iron Sucrose Complex 200 MG in 0.9 % Sodium Chloride 100 ML 440 MG IV (09:50)
[2024-04-06 11:30] VITALS: BP 114/61; PULSE 74; RESP 16; TEMP 36.5; O2SAT 98
[2024-04-06] MEDS: Iron Sucrose Complex 200 MG in 0.9 % Sodium Chloride 100 ML 440 MG IV (11:33)
== END 2024-04-06 12:04 | disposition home or self-care (01) ==
LOC: HO.INF 11:30
PROVIDERS: Visit Provider Internal Medicine
DX: D64.9 Anemia, unspecified (principal)
CPT/HCPCS: 96365; 96374; J1756

== ENCOUNTER 2024-05-21 14:07 | Outpatient (AMB) | payer MEDICARE, SELFPAY ==
--- NOTE | 2024-05-21 14:17 | MHC.OFFVIS ---
Vital Signs 05/21/24 14:18 Height 5 ft 2 in Weight 198 lb BMI 36.2 Pulse 75 Pulse Source Pulse Oximeter Pulse Oximetry (%) 98 Oxygen Delivery Method Room Air Intake Visit Reasons: Robotic Repair Abdominal Repair (06/03) Allergies Penicillins Allergy (Severe, Verified 05/21/24 14:19) DIFFICULTY BREATHING HPI Comments Details: The patient is a [age]-year-old woman with known history of asthma in addition to hiatal hernia. over the summer she did have surgery for her abdominal hernia with significant manipulations of the muscles of her torso. After surgery she has been complaining of some pleuritic back and chest pain. Primarily to the left side and is not always. Moderate in severity. It does keep her from taking a deep breath. She did undergo a CT scan of the abdomen over the summer demonstrating some atelectasis mainly to the left base but also to the right. She is also having issues with her inhalers. She was responded very well to the Symbicort and Tudorza. However, her insurance is no longer covering the Tudorza. I have given a prescription with free sample of trelegy, but she was afraid to use it. We talked about and she agreed to use it she will pick it up to pharmacy. In the meantime she appears to have some diaphragmatic spasms and will be recently to try antispasmodic medication to see if she gets some relief. 09/30/2022 the patient is here for a pulmonary follow-up visit. From a respiratory status the patient is doing better on the Trelegy. However, it is extremely expensive for. In addition to that she hits the donut hole in the that is very difficult for her to get any of her medications. Therefore we talked about different options in order to see if we can get her on a regimen that is more financially reasonable. She will try to use a good Rx card for AirDuo and will send Incruse to the pharmacy. she still complains of significant arthralgias and myalgias. She is concerned about the positive RENEE. She is following closely with Rheumatology. She is considering a 2nd opinion. In addition to this the patient has underlying sleep apnea. The CPAP therapy has been affecting beneficial. She does use it for more than 4 hours a night. 03/27/2023 the patient is here for a pulmonary follow-up visit. She continues on the Trelegy. She was able to get some samples and became a little bit more recently. I do also have a coupon card to provide her. Therefore she can continue her respiratory medications that appears to be working for her. She is still having episodes of pleuritic back and chest pain. Primarily on the right side. Denies any palpitations or any hemoptysis. She does have some lower extremity edema. We did have her undergo blood work including a D-dimer that was negative. Therefore we can hold off on a CT angio. In the meantime will request a chest x-ray to see if acted explain her ongoing symptoms. If the x-ray is not helpful then will have to get a CT scan of the chest to address for any underlying pleural base disease. The patient does have underlying connective tissue disorders. she also has significant arthritis. She has had a positive RENEE and the rest of the workup that has been done has been inconclusive. Therefore, will refer to Rheumatology in order to further evaluate for connective tissue conditions. Patient continues use her CPAP every night. CPAP therapy continues to be affecting beneficial. She does use it for 4 hours a night. 09/04/2023 the patient is here for a pulmonary follow-up visit. The patient is still recovering from her abdominal surgeries. She is feeling well though he is had significant amount of discomfort. She had more fluid accumulation had to have a drain replaced. The area appears to be healing better. In the meantime she has not been using her CPAP. She has been sleeping better and she has not been complaining of significant snoring or daytime drowsiness. Her [place] score is decreased down to 7/24. Therefore will continue to monitor her symptoms and she will continue with positional therapy. We will consider repeating the sleep study during the next visit. She also stopped using the Trelegy inhaler because it was too expensive. She does have the nebulized therapy with DuoNeb that she uses up to twice a day which appears to be effective and more reasonable giles. Therefore will go ahead and hold off on the Trelegy at this time. The patient also has been complaining of some left-sided pleuritic chest discomfort and back discomfort upon deep breathing specially after her surgery. She has not had a chest x-ray as of yet. The for will have her get an x-ray today. She will continue with the current respiratory therapy and will follow-up in 6-8 months. Which time will discuss the whole CPAP issue. If her chest x-ray is abnormal I will call her further recommendations based on the forthcoming data. 02/25/2024 the patient is here for a pulmonary follow-up visit. The patient overall has been doing fair. She still complains of his ongoing symptoms of dizziness weakness fatigue just does not feel good overall. Breathing landis she is doing okay. She is responding well to the inhaler although is extremely expensive for her. She did get samples from her primary care and she has been using it sparingly to try to make it last. At this point will go ahead and switch her back to her nebulized treatments with the DuoNeb in addition to budesonide in order to see about getting her effective treatments more reasonable. The patient also has had issues with anemia. That can also be contributing to her underlying symptoms. Will go ahead and repeat her blood work I do believe that previously she was seeing Dr. Ledbetter from Hematology. Will go ahead and refer her to Hematology here in order for her to address her significant anemia iron deficiency and potentially need for IV iron since she has not responding to her oral supplementation. Indeed this will help her breathing and will help her other constitutional symptoms. 05/21/2024 the patient is here for a pulmonary follow-up visit. The patient is doing better from respiratory status. She does have a surgery coming up for her ventral hernia. This will happen in [place]. In the meantime her respiratory medications have been optimized. We did do spirometry in the office. She does have a mild obstruction. Although clinically the patient doing well without any significant wheezing on examination. She knows to continue her nebulized treatments in 2 use her nebulizer even prior to surgery. The patient understands that she does have increased risk for perioperative pulmonary complications which includes; bronchospasms, atelectasis, hypoxia and pneumonia. She is medically optimized from a pulmonary standpoint and may be able to proceed with anesthesia and also her abdominal surgery. After surgery she will we require her bronchodilator therapy via nebulizer and also should also work on deep breathing exercises incentive spirometer to minimize atelectasis and Pneumonia. Early mobilization is gandhi. The patient will continue with the current respiratory regimen. In the meantime the patient has not been using her CPAP. She has only been using positional therapy. She should be monitor for nocturnal hypoxia during her postoperative period. The patient follow-up 3-4 months. If she has any worsening symptoms prior to that she will call for an earlier assessment. 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 COVID-19 BRIANA on CPAP Hiatal hernia Asthma Spasm of diaphragm Surgical History Hx of hernia repair Family History Father Liver disease Alcoholic cirrhosis of liver Mother Ovarian cancer Social History Household Members: Spouse and Children Alcohol intake: current Alcohol intake frequency: holidays/special occasions only Patient Tobacco Use Status: Never used Tobacco Current occupational status: unemployed Review of Systems Const Denies fever(s) and Denies night sweats ENT Denies change in voice, Denies dizziness, Denies lip swelling, Denies mouth pain, Reports nasal congestion, Reports nasal discharge and Denies tongue swelling Card Denies chest pain, Reports leg edema and Reports dyspnea on exertion Resp Denies change in phlegm color, Denies chest congestion, Reports cough, Denies hemoptysis, Reports dyspnea on exertion and Denies wheezing GI Reports abdominal pain Musc Reports as per HPI, Reports back pain, Reports myalgias and Reports arthralgias Skin/Breast Denies rash Neuro Denies Neuro-related abnormal movements and Denies dizziness Psych Denies no additional complaints Errol/Lymph Denies easy bleeding and Denies lymphadenopathy Aller/Immun Denies lip swelling, Denies tongue swelling and Denies wheezing Physical Exam Vital Signs: Last Vital Signs Pulse 75 05/21/24 14:18 Pulse Ox 98 05/21/24 14:18 Oxygen Delivery Method Room Air 05/21/24 14:18 BMI result Body Mass Index 36.2 Const General: alert Neck Neck: Yes normal visual inspection, Yes full ROM and Yes no lymphadenopathy Chest Chest palpation & inspection: normal inspection of the chest Resp Effort & Inspection: normal respiratory effort Auscultation: diminished lung sounds Cardio Rate: regular rate Rhythm: regular rhythm Heart sounds: S1 normal heart sound present and S2 normal heart sound present GI Palpation (GI): Soft to palpation, nontender and Other GI palpation findings present (reducible ventral hernia) Auscultation: normal bowel sounds Skin General skin exam: rashes and/or lesions noted Extrem General: Yes edema (LE bilateral-non pitting) Right upper extremity: no cyanosis Office Procedures Spirometry Testing Spirometry Comments: Spirometry done in the office, Dr. Olivares has the results results scanned to her chart. 82869- Spirometry Results Reviewed Results Reviewed: [address] [address] XRay Report Signed Patient: Billie Gray MR#: [id number] : 1965 Acct:[id number] Age/Sex: 58 / F ADM Date: 09/04/23 Loc: [facility] Attending Dr: Richard Olivares MD Ordering Physician: Richard Olivares MD Date of Service: 09/04/23 Procedure(s): XR chest 2V Accession Number(s): [id number] cc: Bo Hayden; Richard Olivares MD~ EXAMINATION: XR CHEST CLINICAL INFORMATION: Reason for Exam R07.81 - Pleurodynia COMPARISON: Chest radiograph 04/11/2023 TECHNIQUE: 2 views of the chest FINDINGS: Lines and tubes: None. Clear lungs. No pleural effusion. No pneumothorax. Unchanged cardiomediastinal silhouette. XR/XR chest 2V IMPRESSION: * Clear lungs. Dictated By: Galina Oakes MD Signed By: <Electronically signed by Galina Oakes MD in OV> 09/05/23 1519 DD/ 1349 TD/TT: Councilor: Back Hemoglobin (Complete) 04/13/24 Hemoglobin (Complete) 03/10/24 Hemoglobin (Complete) 02/25/24 Hemoglobin (Complete) 03/27/23 Hemoglobin (Complete) 09/30/22 Hemoglobin (Complete) 04/02/22 Hemoglobin (Complete) 12/28/21 Hemoglobin (Complete) 11/23/21 Hemoglobin (Complete) 02/02/21 Hemoglobin (Resulted) 10/05/20 RUN: 05/21/24 1431 PAGE 1 [facility] [address] [place] [id number] Reservation Sales Agent: Benigno Louis M.D. Specimen Inquiry Name: Billie Gray Age/Sex: 58/F : 1965 Unit#: [id number] Attend Dr: Bhakti Lopez MD Re04/20/24 Status: REG RCR Location: .ONC Disch: SPEC : [id number] XU: 04/13/24 STATUS: COMP REQ : [id number] RECD: 04/13/[address]: Bhakti Lopez MD COMP: 04/13/24 ENTERED: 04/13/24 [facility] DR: Bo Hayden ORDERED: CBC Auto Diff Test Result Flag Reference WBC 7.0 4.8-10.8 X10*3/uL RBC 4.52 4.20-5.50 X10*6/uL HGB 11.5 L 12.0-16.0 g/dl HCT 35.6 L 37.0-47.0 % MCV 78.8 L 80.0-98.0 fL MCH 25.4 L 27.0-33.0 pg MCHC 32.3 31.0-35.0 g/dl RDW 17.4 H 11.0-16.0 % PLT 199 160-400 X10*3/uL MPV 9.3 L 9.4-12.3 fL Neut Pct Auto 53.9 45-73 % ImGran Pct Auto 0.1 0.0-0.4 % Lymp Pct Auto 30.3 20-40 % [place] Pct Auto 7.7 2-11 % Eos Pct Auto 7.1 H 0-4 % Baso Pct Auto 0.9 0-2 % NRBC Pct Auto 0.0 0.0-0.2 /100WBC ANC Neut Abs # 3.8 2.0-8.3 x10*3/uL ImGran Abs Auto 0.01 0.00-0.03 X10*3/uL Lymph Abs Auto 2.1 1.2-4.9 X10*3/uL [place] Abs Auto 0.5 0.1-1.2 X10*3/uL Eos Abs Auto 0.5 H 0.0-0.4 X10*3/uL Baso Abs Auto 0.1 0.0-0.2 X10*3/uL NRBC Abs Auto 0.000 0.0-0.012 X10*3/uL END OF REPORT Assessment & Plan Assessment & Plan (1) Pre-op chest exam: Code(s): Z01.811 - Encounter for preprocedural respiratory examination Category: Medical (2) BRIANA on CPAP: Code(s): G47.33 - Obstructive sleep apnea (adult) (pediatric); Z99.89 - Dependence on other enabling machines and devices Category: Medical (3) Hiatal hernia: Code(s): K44.9 - Diaphragmatic hernia without obstruction or gangrene Category: Medical (4) Asthma: Code(s): J45.909 - Unspecified asthma, uncomplicated Category: Medical Qualifiers: Asthma complication type: uncomplicated Asthma persistence: persistent Asthma severity: moderate Qualified Code(s): J45.40 - Moderate persistent asthma, uncomplicated (5) Ventral hernia: Comment: s/p repair Code(s): K43.9 - Ventral hernia without obstruction or gangrene Category: Medical Qualifiers: Obstruction and gangrene presence: without obstruction or gangrene Qualified Code(s): K43.9 - Ventral hernia without obstruction or gangrene (6) Pleuritic chest pain: Code(s): R07.81 - Pleurodynia Category: Medical (7) RENEE positive: Code(s): R76.8 - Other specified abnormal immunological findings in serum Category: Medical (8) Anemia: Code(s): D64.9 - Anemia, unspecified Category: Medical Qualifiers: Anemia type: unspecified type Qualified Code(s): D64.9 - Anemia, unspecified (9) Asthma-COPD overlap syndrome: Code(s): J44.89 - Other specified chronic obstructive pulmonary disease Category: Medical Plan DuoNebs BID budesondie positional sleep therapy, no CPAP at this time proceed with abdominal surgery and anesthesia at this time. She is medically optimized at this time Follow-up 3-4 months Orders: Orders AMB Spirometry Testing 05/21/24 J44.89 - Other specified chronic obstructive pulmonary disease Coding Level of Care Code Est Pt Level 4 (05482) Diagnoses Pre-op chest exam Z01.811 BRIANA on CPAP G47.33; Z99.89 Hiatal hernia K44.9 Moderate persistent asthma without complication J45.40 Asthma complication type: uncomplicated Asthma persistence: persistent Asthma severity: moderate Ventral hernia without obstruction or gangrene K43.9 Obstruction and gangrene presence: without obstruction or gangrene Pleuritic chest pain R07.81 RENEE positive R76.8 Anemia, unspecified type D64.9 Anemia type: unspecified type Asthma-COPD overlap syndrome J44.89 CPT Codes Spirometry - CPT: 52675- Spirometry ([id number]) Time Spent (min) 17
[2024-05-21 14:18] VITALS: PULSE 75; O2SAT 98; BMI 36.2
== END 2024-05-21 14:35 | disposition home or self-care (01) ==
PROVIDERS: PCP Internal Medicine; Visit Provider Hospitalist
DX: G47.33 Obstructive sleep apnea (adult) (pediatric) (principal); Z99.89 Dependence on other enabling machines and devices; K44.9 Diaphragmatic hernia without obstruction or gangrene
CPT/HCPCS: 94010; 99214

== ENCOUNTER → 2024-05-21 14:07 | Outpatient (BNVA) | payer MEDICARE, SELFPAY | PROVIDERS: PCP Internal Medicine; Visit Provider Hospitalist | DX: Z01.811 Encounter for preprocedural respiratory examination (principal); J45.40 Moderate persistent asthma, uncomplicated; J44.89 Other specified chronic obstructive pulmonary disease; G47.33 Obstructive sleep apnea (adult) (pediatric); R07.81 Pleurodynia; R76.8 Other specified abnormal immunological findings in serum; D64.9 Anemia, unspecified; K44.9 Diaphragmatic hernia without obstruction or gangrene; K43.9 Ventral hernia without obstruction or gangrene; Z99.89 Dependence on other enabling machines and devices | CPT/HCPCS: 94010; 99212 ==

== ENCOUNTER 2024-12-10 15:19 | Outpatient (REF) | payer MEDICARE, SELFPAY ==
--- OUTSIDE RECORDS SUMMARY | 2024-12-10 16:00 | XMS_ITS | Encounter Summary ---
Author Organization [facility] Address [address] [place] [address] Care Team Providers Care Form Raiser Name Role Phone Bo Hayden Primary Care Provider [phone] Encounter Details Date Type Department Care Team (Late st Contact Info) Description 07/19/2021 Orders Only [facility] Interventional Radiology [address] [place] [address], [place] [id number] Kristyn Almanza MD [address], [place] [id number] Social History Tobacco Use Types Packs/Day Years Used Date Smoking Tobacco: Never Smokeless Tobacco: Never Alcohol Use Standard Drinks/Week Comments Yes 0 (1 standard drink = 0.6 oz pur e alcohol) occasionally Comments No Sex and Gender Information Value Date Recorded Sex Assigned at Female 05/23/2020 11:03 AM EDT Legal Sex Female 10:28 AM EST Gender Identity Female 05/23/2020 11:04 AM EDT Sexual Orientation Straight 05/23/2020 11 :04 AM EDT documented as of this encounter Plan of Treatment Not on file documented as of this encounter Visit Diagnoses Not on filedocumented in this encounter Care Teams Form Raiser Relationship Specialty Start Date End Date Bo Hayden PCP - General Internal Medicine 10/04/19 documented as of this encounter
--- OUTSIDE RECORDS SUMMARY | 2024-12-10 16:00 | XMS_ITS | Clinical Summary ---
Author Organization Patient Business Ser [facility] Address [address] [place] [address] Care Team Providers Care Coagulating Bath Operator Name Role Phone Bo Hayden MD Primary Care Provider [phone] Surgical History Surgery Date Site/Laterality Comments TUBAL LIGATION 1995 PROCEDURE: HISTORICAL TUBAL LIGATION APPENDECTOMY PROCEDURE: HISTORICAL APPENDECTOMY SECTION 1994 PROCEDURE: HISTORICAL DELIVERY BACK SURGERY 1995 PROCEDURE: HISTORICAL BACK SURGERY; COMMENT: L5 disc ESOPHAGOGASTRODUODENOSCOPY 2001 PROCEDURE: [place] ESOPHAGOGASTRODUODENOSCOPY TRANSORAL DIAGNOSTIC ABDOMINAL SURGERY 01/2005 PROCEDURE: [place] UNLISTED PROCEDURE ABDOMEN PERITONEUM & OMENTUM; COMMENT: enteritis HERNIA REPAIR 07/2005 PROCEDURE: HISTORICAL HERNIA REPAIR/JODIE; COMMENT: then with repair of mesh 08/2005 Medical History Medical History Date Comments Obstructive sleep apnea 03/05/2018 DX:Obstr uctive sleep apnea Asthma 03/05/2018 DX:Asthma Diabetes mellitus type 2, uncomplicated ([facility]) 03/05/2018 DX:Diabetes mellitus type 2, uncomplicated ([facility]) 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 DX:Hy perkinetic heart disease Chronic obstructive pulmonar y disease (COPD) ([facility]) 03/05/2018 DX:Chronic obstructive pulmo nary disease (COPD) ([facility]) GERD (gastroesophageal reflux disease) 03/05/2018 DX:GERD (gastroesophageal reflux disease) Barretts esophagus 03/24/2018 DX:Barretts e sophagus History of pulmonary embolism 03/12/2018 DX :History of pulmonary embolism Irritable bowel syndrome (IBS) 03/24/2018 D X:Irritable bowel syndrome (IBS) Fibromyalgia 03/24/2018 DX:Fibromyalgia Morbid obesity with BMI of 4 0.0-44.9, adult ([facility]) 03/24/2018 DX:Morbid obesity with BMI o f 40.0-44.9, adult ([facility]) Allergic rhinitis 03/24/2018 DX:Allergic rh initis Depression 03/24/2018 DX:Depression Renal calculi 03/24/2018 DX:Renal calculi Osteoporosis 03/24/2018 DX:Osteoporosis Osteoarthritis 03/24/2018 DX:Osteoarthriti s Tuberculosis 03/24/2018 DX:Tuberculosis; COMMENT: No further information Hypertension 03/24/2018 DX:Hypertension Headache 03/24/2018 DX:Headache Elevated antinuclear antibod y (RENEE) level 03/24/2018 DX:Elevated antinuclear anti body (RENEE) level; COMMENT: [id number] on 06/2016 History of small bowel obstruction 03/24/2018 DX:History of small bowel obstruction; COMMENT: 2009 Family History Medical History Relation Name Comments Bladder Cancer Aunt Arthritis Brother Cirrhosis Father hepatitis Ovarian cancer Mother Relation Name Status Comments Aunt Brother Alive Daughter Alive Father Mother Son Alive Social History Tobacco Use Types Packs/Day Years Used Date Smoking Tobacco: Never Smokeless Tobacco: Never Alcohol Use Standard Drinks/Week Comments Yes 0 (1 standard drink = 0.6 oz pur e alcohol) Comments Unknown Sex and Gender Information Value Date Recorded Sex Assigned at Not on file Legal Sex Female 9:51 AM EST Gender Identity Not on file Sexual Orientation Not on file Obstetrics History Plan of Treatment Health Maintenance Due Date Last Done Comments Breast Cancer Screening 1966 Diabetes: Annual GFR (Glomer ular Filtration Rate) 1966 Diabetes: Annual Foot Exam 1976 Diabetes: Annual Retina Eye Exam 1976 DTaP,Tdap,and Td Vaccines (1 - Tdap) 1985 Hepatitis B Vaccines (1 of 3 - 19+ 3-dose series) 1985 Pneumococcal Vaccine: 50+ Ye ars (1 of 2 - PCV) 1985 Pneumococcal Vaccine: Pediat rics (0 to 5 Years) and At-Risk Patients (6 to 64 Years) (1 of 2 - PCV) 1985 Cervical Cancer Screening: P ap Smear 1987 Zoster Vaccines (1 of 2) 2016 Cholesterol Screening (Lipid Panel) 11/29/2021 Colorectal Cancer Screening: Colonoscopy 11/29/2021 Depression Screening 11/29/2021 HIV Screening 11/29/2021 Hepatitis C Screening 11/29/2021 Osteoporosis Screening (Bone Density Screening) 11/29/2021 Social Influencers of Health Screening 11/29/2021 Hypertension/CHF/CAD Annual BMP Blood Test 10/02/2022 Diabetes: Annual Urine Albumin-Creatinine Ratio (uACR) 10/05/2022 Diabetes: Blood Sugar Contro l Test (HGBA1C) 10/05/2022 COVID-19 Vaccine (2023-2 5 season) 2024 Influenza Vaccine (#1) 2024 HIB Vaccines Aged Out No longer eligi ble based on patient's age to complete this topic HPV Vaccines Aged Out No longer eligi ble based on patient's age to complete this topic Hepatitis A Vaccines Aged Out No long er eligible based on patient's age to complete this topic IPV Vaccines Aged Out No longer eligi ble based on patient's age to complete this topic MMR Vaccines Aged Out No longer eligi ble based on patient's age to complete this topic Meningococcal ACWY Vaccine Aged Out N o longer eligible based on patient's age to complete this topic Meningococcal B Vacine Aged Out No lo nger eligible based on patient's age to complete this topic RSV Immunization Patients Un mel 20 months Aged Out No longer eligible b ased on patient's age to complete this topic Varicella Vaccines Aged Out No longer eligible based on patient's age to complete this topic Care Teams Coagulating Bath Operator Relationship Specialty Start Date End Date Bo Hayden MD PCP - General Internal Medicine 05/31/16
--- OUTSIDE RECORDS SUMMARY | 2024-12-10 16:00 | XMS_ITS | Referral Summary ---
Author Organization [facility] Address [address] [place] [address] Care Team Providers Care Machine Inker Name Role Phone Bo Hayden Primary Care Provider [phone] Allergies Active Allergy Reactions Criticality Noted Date Comments Penicillins Dyspnea High 11/05/2016 Pollen Extracts Cough,Headache,Nasal congestion 05/20/2024 Medications metFORMIN (GLUCOPHAGE) 500 mg tablet 500 mg 2 times a day with meals. 9 Active albuterol (PROAIR HFA,VENTOLIN HFA) 90 mcg inhaler 1-2 puffs every 4 hours as needed. Active pantoprazole DR (PROTONIX) 40 mg tablet Take 1 tablet (40 mg total) by mouth daily. 0 0 Active atorvastatin (LIPITOR) 20 mg tablet 3 times a week. 4 Active budesonide (PULMICORT) 0.25 mg/2 mL nebulizer suspension USE 1 VIAL IN NEBULIZER ONCE DAILY 4 Active losartan (COZAAR) 50 mg tablet 4 Active ascorbic acid (VITAMIN C) 500 mg tablet Take 500 mg by mouth once a day. Active acetaminophen (TYLENOL) 325 mg tablet Take 2 tablets (650 mg total) by mouth every 6 hours. 4 Active polyethylene glycol 3350 (MIRALAX) 17 gram packet Take 1 packet (17 g total) by mouth daily as needed (Constipation) . Mix powder in 4-8 ounces of water 4 Active Active Problems Problem Noted Date Diagnosed Date Abdominal wall seroma 08/19/2023 Surgery follow-up 03/11/2022 S/P panniculectomy 03/11/2022 S/P repair of ventral hernia 05/25/2020 Panniculitis 04/10/2020 Depression 03/24/2018 Allergic rhinitis 03/24/2018 Elevated antinuclear antibody (RENEE) level 2017 Overview (05/22/2020): 2560 on 06/2016 Fibromyalgia 03/24/2018 Headache 03/24/2018 Barretts esophagus 03/24/2018 Hiatal hernia 03/24/2018 History of small bowel obstruction 03/24/2018 Overview (05/22/2020): 2009, resolved without surgical intervention Hypertension 03/24/2018 Irritable bowel syndrome (IBS) 03/24/2018 Obesity, class 2 03/24/2018 Osteoarthritis 03/24/2018 Osteoporosis 03/24/2018 Renal calculi 03/24/2018 Tuberculosis 03/24/2018 Overview (05/22/2020): No further information History of pulmonary embolism 03/12/2018 Diabetes mellitus type 2, uncomplicated ([facility] ) 03/05/2018 Chronic obstructive pulmonary disease (COPD) Asthma 03/05/2018 GERD (gastroesophageal reflux disease) 8 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 Obstructive sleep apnea 03/05/2018 Overview (05/22/2020): CPAP Leg pain, bilateral 11/05/2016 Resolved Problems Problem Noted Date Diagnosed Date Resolved Date Recurrent incisional hernia 03/12/2024 09/06/2024 Recurrent ventral hernia with incarceration 02/27/2022 09/06/2024 Incarcerated ventral hernia 05/24/2020 06/01/2020 Recurrent ventral hernia with incarceration 10/05/2019 06/01/2020 Immunizations Immunization Administration Dates Next Due Influenza, Injectable, Quadr ivalent, Preservative Free 07/11/2023(Deferred: Patient Refused) Social History Tobacco Use Types Packs/Day Years Used Date Smoking Tobacco: Never Smokeless Tobacco: Never Alcohol Use Standard Drinks/Week Comments Yes 0 (1 standard drink = 0.6 oz pur e alcohol) occasionally 1-2x/month liquor Comments No Sex and Gender Information Value Date Recorded Sex Assigned at Female 05/23/2020 11:03 AM EDT Legal Sex Female 10:28 AM EST Gender Identity Female 05/23/2020 11:04 AM EDT Sexual Orientation Straight 05/23/2020 11 :04 AM EDT Last Filed Vital Signs Vital Sign Reading Time Taken Comments Blood Pressure 107/78 09/06/2024 11:03 AM EST Pulse 89 09/06/2024 11:03 AM EST Temperature 35.8 ??C (96.5 ??F) 06/18/2024 11:20 AM E DT Respiratory Rate 16 06/04/2024 1:10 PM EDT Oxygen Saturation 96% 09/06/2024 11:03 AM EST Inhaled Oxygen Concentration - - Weight 90.5 kg (199 lb 8.3 oz) 07/07/2024 2:03 P M EDT Height 157.5 cm (5' 2 ) 06/03/2024 5:23 AM EDT Body Mass Index 36.49 06/03/2024 5:23 AM EDT Plan of Treatment Not on file Medical Devices Implanted Type Area Rig Superintendent Device Identifier Shelf Expiration Date Model / Serial / Lot Mesh Rectangle [id number] Phasix - [id number] Implanted:Qty: 1 on 05/24/2020 by Mathew Armstrong MD at [facility] Mesh Abdomen [employer] 06/16/2021 [id number] / / [id number] Mesh Rectangle [id number] Phasix - [id number] Implanted:Qty: 1 on 02/27/2022 by Mathew Armstrong MD at [facility] Mesh N/A: Abdomen [employer] 07/17/2022 [id number] / / [id number] Mesh Surgica Enform Intraperitoneal Biomaterial [id number] - [id number] - [id number] Implanted:Qty: 1 on 06/03/2024 by Javad Valle MD at [facility] Mesh N/A: Abdomen W L GORE 08/05/2026 [id number] / [id number] / Mesh Ventral Hernia Soft Square [id number] - [id number] Implanted:Qty: 1 on 06/03/2024 by Javad Valle MD at [facility] Mesh N/A: Abdomen [employer] 09/16/2028 [id number] / / [id number] Procedures * Due to [facility] law, this organization might not be sharing negative HIV tests. Procedure Name Priority Date/Time Associated Diagnosis Comments BASIC METABOLIC PANEL Routine 06/04/2024 3:52 AM EDT HEMOGLOBIN A1C STAT Add-on 02/27/2022 8:31 AM EDT from Last 3 Months or Most Recently Relevant to Health Maintenance Results * Due to [place] state law, this organization might not be sharing negative HIV tests. * (ABNORMAL) Basic Metabolic Panel (06/04/2024 3:52 AM EDT) NA 138 135 - 145 mmol/L 06/04/2024 4:57 AM EDT [facility] K 4.3 3.5 - 5.3 mmol/L 06/04/2024 4:57 AM EDT [facility] Cl 107 98 - 107 mmol/L 06/04/2024 4:57 AM EDT [facility] CO2 22(L) 24 - 32 mmol/L 06/04/2024 4:57 AM EDT [facility] BUN 13 7 - 23 mg/dL 06/04/2024 4:57 AM EDT [facility] Creatinine 0.88 0.50 - 1.20 mg/dL 06/04/2024 4:57 AM EDT [facility] Glucose 101(H) 65 - 99 mg/dL 06/04/2024 4:57 AM EDT [facility] Calcium 8.3(L) 8.6 - 10.5 mg/dL 06/04/2024 4:57 AM EDT [facility] Anion Gap 9 5 - 15 06/04/2024 4:57 AM EDT [facility] eGFR 76 >=60 mL/min/1. 73m2 06/04/2024 4:57 AM EDT [facility] Comment:The estimated glomer ular filtration rate (eGFR) is calculated using a new formula developed by the NKF-ASN task force to eliminate race-based correction factors. The new formula uses serum/plasma creatinine, age, and gender to determine eGFR. A value below 60mls/min might indicate kidney disease and will be flagged. For additional information, see Shabbir et al, Am J Kidney Dis. 2021;79(2):268- 288, A Unifying Approach for GFR estimation: Recommendations of the NKF-ASN Task Force on Reassessing the Inclusion of Race in Diagnosing Kidney Disease . Blood Structure of peripheral vein / Unknown Venipuncture / Unknown 06/04/2024 3:52 AM EDT 06/04/2024 4:26 AM EDT Javad Valle MD LAB BLOOD ORDERABLES Mabel hardy Result [facility] [address] [place] [address], * (ABNORMAL) Hemoglobin A1c (02/27/2022 8:31 AM EDT) Hemoglobin A1C 5.8(H) <5.7 % of total Hgb 02/28/2022 7:39 AM EDT [facility]NEXT Comment: For someone without known diabetes, a hemoglobin A1c value between 5.7% and 6.4% is consistent with prediabetes and should be confirmed with a follow-up test. For someone with known diabetes, a value <7% indicates that their diabetes is well controlled. A1c targets should be individualized based on duration of diabetes, age, comorbid conditions, and other considerations. This assay result is consistent with an increased risk of diabetes. Currently, no consensus exists regarding use of hemoglobin A1c for diagnosis of diabetes for children. eAG (MG/DL) 120 mg/dL 02/28/2022 7:39 AM EDT [facility]NEXT eAG (MMOL/L) 6.6 mmol/L 02/28/2022 7:39 AM EDT videoNEXT Blood Structure of peripheral vein / Unknown Venipuncture / Unknown 02/27/2022 8:31 AM EDT 02/27/2022 8:33 AM EDT Narrative [facility] - 02/28/2022 7:39 AM EDT [facility] Received Date: us Mathew Armstrong MD LAB BLOOD ORDERABLES Final Re sult [facility] [address], [place] [address], [place] [phone] ulike [facility] [address], [place] [address], [place] [phone] from Last 3 Months or Most Recently Relevant to Health Maintenance Insurance MEDICARE [facility] Advance Directives Documents on File Type Date Recorded Patient Mexican Food Maker Expl anation Health Care Proxy 05/24/2020 7:04 AM 05/24/20 * Full Code (Latest Code Status on File) Date Activated Date Inactivated Comments 07/09/2023 5:42 PM 07/11/2023 4:01 PM * Full Code Date Activated Date Inactivated Comments 07/09/2023 10:55 AM 07/09/2023 5:42 PM * Full Code Date Activated Date Inactivated Comments 02/27/2022 5:55 AM 03/02/2022 6:32 PM * Full Code Date Activated Date Inactivated Comments 05/24/2020 3:43 PM 06/01/2020 3:27 PM * Full Code Date Activated Date Inactivated Comments 05/24/2020 6:39 AM 05/24/2020 3:43 PM Healthcare Agents on File Name Relationship Healthcare Agent Relationship Communication Rosana Dutton Daughter Health Care Agent Scott dutton Son Alternate Health Care Agen t Care Teams Machine Inker Relationship Specialty Start Date End Date Bo Hayden PCP - General Internal Medicine 10/04/19
--- OUTSIDE RECORDS SUMMARY | 2024-12-10 16:00 | XMS_ITS | Clinical Summary ---
Author Organization [facility] Address [address] [place] [address] Care Team Providers Care Hot Mix Operator Name Role Phone Bo Hayden Primary Care Provider [phone] Allergies Active Allergy Reactions Criticality Noted Date [...] 03/24/2018 Allergic rhinitis 03/24/2018 Elevated antinuclear antibody (RNEEE) level 2017 Overview (05/22/2020): 2560 on 06/2016 [...] embolism 03/12/2018 Diabetes mellitus type 2, uncomplicated ([facility]/HCC ) 03/05/2018 Chronic obstructive pulmonary disease (COPD) [...] Quadr ivalent, Preservative Free 07/11/2023(Deferred: Patient Refused) Family History Medical History Relation Name Comments No Known Problems Brother Cirrhosis Father Cancer Mother Relation Name Status Comments Brother Alive Father Mother Social History Tobacco Use Types Packs/Day Years [...] 06/03/2024 5:23 AM EDT Plan of Treatment Health Maintenance Due Date Last Done Comments Cervical Cancer Screening 1966 Cologuard 1966 Colon Cancer Screening 1966 Colonoscopy 1966 FOBT / Fit Test 1966 HIV Screening 1966 HPV and Pap Smear 1966 Hepatitis C Screening 1966 Pap Smear 1966 Sigmoidoscopy 1966 Ophthalmology Exam 1976 Urine Microalbumin 1976 Hepatitis B Vaccines (1 of 3 - 19+ 3-dose series) 1985 Mammogram 2006 Hemoglobin A1C 08/30/2022 02/27/2022 COVID-19 Vaccine (2023-2 5 season) 2024 07/11/2022, 03/28/2022, 08/08/2021, Additional history exists Alcohol/Substance Use Screening 10/20/2024 Depression Evaluation 10/20/2024 [employer] [facility] ual Screening 10/20/2024 Basic Metabolic Panel 06/04/2025 06/04/2024 , 07/09/2023, 02/28/2022, Additional history exists DTaP,Tdap,and Td Vaccines (2 - Td or Tdap) 08/28/2034 08/28/2024 RSV Vaccine (60+ years old a nd patients) (1 - 1-dose 75+ series) 2041 Zoster Vaccines Completed 11/19/2018, 08/21/2018 Pneumococcal Vaccine: 50+ Years Completed Influenza Vaccine Completed 08/19/2024, , 08/17/2022, Additional history exists Medical Devices Implanted Type Area Coater Hand Device Identifier Shelf Expiration Date Model / Serial / Lot Mesh Rectangle [id number] Phasix - [id number] Implanted:Qty: 1 on 05/24/2020 by Mathew Armstrong MD at [facility] Mesh Abdomen [employer] 06/16/2021 [id number] / / [id number] Mesh Rectangle [id number] Phasix - [id number] Implanted:Qty: 1 on 02/27/2022 by Mathew Armstrong MD at [facility] Mesh N/A: Abdomen [employer] 07/17/2022 [id number] / / [id number] Mesh Surgica Enform Intraperitoneal Biomaterial [id number] - [id number] - [id number] Implanted:Qty: 1 on 06/03/2024 by Javad Valle MD at [facility] Mesh N/A: Abdomen W L GORE 08/05/2026 [id number] / [id number] / Mesh Ventral Hernia Soft Square [id number] - [id number] Implanted:Qty: 1 on 06/03/2024 by Javad Valle MD at [facility] Mesh N/A: Abdomen CR [employer] 09/16/2028 [id number] / / [id number] Procedures * Due to [place] state law, this organization might not be sharing negative HIV tests. Procedure Name Priority Date/Time Associated Diagnosis Comments BASIC METABOLIC PANEL Routine 06/04/2024 3:52 AM EDT HEMOGLOBIN A1C STAT Add-on 02/27/2022 8:31 AM EDT from Last 3 Months or Most Recently Relevant to Health Maintenance Results * Due to [place] state law, this organization might not be sharing negative HIV tests. * (ABNORMAL) Basic Metabolic Panel (06/04/2024 3:52 AM EDT) NA 138 135 - 145 mmol/L 06/04/2024 4:57 AM EDT [facility] K 4.3 3.5 - 5.3 mmol/L 06/04/2024 4:57 AM EDT [facility] Cl 107 98 - 107 mmol/L 06/04/2024 4:57 AM EDT [facility] CO2 22(L) 24 - 32 mmol/L 06/04/2024 4:57 AM EDT [facility] BUN 13 7 - 23 mg/dL 06/04/2024 4:57 AM EDT [facility] Creatinine 0.88 0.50 - 1.20 mg/dL 06/04/2024 4:57 AM EDT [facility] Glucose 101(H) 65 - 99 mg/dL 06/04/2024 4:57 AM EDT [facility] Calcium 8.3(L) 8.6 - 10.5 mg/dL 06/04/2024 4:57 AM EDT [facility] Anion Gap 9 5 - 15 06/04/2024 4:57 AM EDT [facility] eGFR 76 >=60 mL/min/1. 73m2 06/04/2024 4:57 AM EDT [facility] Comment:The estimated glomer ular [...] 3:52 AM EDT 06/04/2024 4:26 AM EDT us Javad Valle MD LAB BLOOD ORDERABLES Mabel l Result Performing Organization Address [facility]/State/ZIP Co de Phone Number [facility] [address] [place] [address], * (ABNORMAL) Hemoglobin A1c (02/27/2022 8:31 AM EDT) Hemoglobin A1C 5.8(H) <5.7 % of total Hgb 02/28/2022 7:39 AM EDT [facility] Comment: For someone without known diabetes, a [...] (MG/DL) 120 mg/dL 02/28/2022 7:39 AM EDT [facility] eAG (MMOL/L) 6.6 mmol/L 02/28/2022 7:39 AM EDT [facility] Blood Structure of peripheral vein / Unknown Venipuncture / Unknown 02/27/2022 8:31 AM EDT 02/27/2022 8:33 AM EDT Narrative [facility] - 02/28/2022 7:39 AM EDT [facility] Received Date:[id number] us Mathew Armstrong MD LAB BLOOD ORDERABLES Final Re sult [facility] [address], [address] [place] [address], [place] [phone] [employer] [facility] [address], [address] [place] [address], [place] [phone] from Last 3 Months or Most Recently Relevant to Health Maintenance Insurance MEDICARE [facility] Advance Directives Documents on File Type Date Recorded Patient Payroll Administrator Expl anation Health Care Proxy 05/24/2020 7:04 [...] Daughter Health Care Agent Scott dutton Son [facility] Health Care Agen t Care Teams Hot Mix Operator Relationship Specialty Start Date End Date Bo Hayden PCP - General Internal Medicine 10/04/19
--- OUTSIDE RECORDS SUMMARY | 2024-12-10 16:00 | XMS_ITS | Encounter Summary ---
Author Organization [facility] Address [address] [place] [address] Care Team Providers Care Text Transcriber Name Role Phone Bo Hayden Primary Care Provider [phone] Encounter Details Date Type Department Care Team (Late st Contact Info) Description 02/28/2024 Orders Only [facility] [address] [place] [address] Scott Rico MD [address] [place] [address] Social History Tobacco Use Types Packs/Day Years Used Date Smoking Tobacco: Never Smokeless Tobacco: Never Alcohol Use Standard Drinks/Week Comments Not Currently 0 (1 standard drink = 0.6 oz pure alcohol) occasionally 1-2x/month liquor Comments No Sex [...] on filedocumented in this encounter Care Teams Text Transcriber Relationship Specialty Start Date End Date Bo Hayden PCP - General Internal Medicine 10/04/19 documented as of this encounter
[2024-12-10 18:35] LABS: Erythrocyte Sedimentation Rate 6 MM/HR (0-20)
[2024-12-12 04:48] LABS: Immunoglobulin A 305 mg/dL (47-310)
[2024-12-13 18:19] LABS: Gliadin Deamidated IgA Ab <1.0 U/mL; Gliadin Deamidated IgG Ab <1.0 U/mL; Transglutaminase Ab IgG <1.0 U/mL; Transglutaminase IgA <1.0 U/mL
[2024-12-14 16:59] LABS: Anti DNA DS Antibody <1 IU/mL; JO 1 Antibody <1.0 NEG AI (<1.0 NEG); SM/Ribonucleoprotein Ab <1.0 NEG AI (<1.0 NEG); Smith Protein <1.0 NEG AI (<1.0 NEG)
[2024-12-14 23:38] LABS: Endomysial IgA Antibody Negative (Negative)
[2024-12-15 11:19] LABS: Anti Nuclear Antibody Pattern Nuclear, Speckled; Anti Nuclear Antibody Screen POSITIVE (NEGATIVE)
== END 2024-12-10 15:20 | disposition home or self-care (01) ==
LOC: HO.LAB 15:19
PROVIDERS: PCP Internal Medicine; Visit Provider Hospitalist
DX: R10.9 Unspecified abdominal pain (principal); R09.1 Pleurisy
CPT/HCPCS: 36415; 82784; 85652; 86038; 86039; 86225; 86231; 86235; 86258; 86364; 99212

== ENCOUNTER 2024-12-10 15:19 | Outpatient (AMB) | payer MEDICARE, SELFPAY ==
[2024-12-10 15:22] VITALS: BP 140/96; PULSE 75; O2SAT 99; BMI 35.9
--- NOTE | 2024-12-10 15:22 | A.OFFVIS_ITS ---
Vital Signs 12/10/24 15:22 Height 5 ft 2 in Weight 196 lb 3.382 oz BMI 35.9 BP 140/96 H Blood Pressure Location Rt brachial Position Sitting Pulse 75 Pulse Source Pulse Oximeter Pulse Oximetry (%) 99 Oxygen Delivery Method Room Air Intake Visit Reasons: Asthma Allergies Penicillins Allergy (Severe, Verified 12/10/24 15:25) DIFFICULTY BREATHING HPI Comments Details: The patient is a 59-year-old woman with known history of asthma in addition to hiatal hernia. over the summer she did have surgery for her abdominal hernia with significant manipulations of the muscles of her torso. After surgery she has been complaining of some pleuritic back and chest pain. Primarily to the left side and is not always. Moderate in severity. It does keep her from taking a deep breath. She did undergo a CT scan of the abdomen over the summer demonstrating some atelectasis mainly to the left base but also to the right. She is also having issues with her inhalers. She was responded very well to the Symbicort and Tudorza. However, her insurance is no longer covering the Tudorza. I have given a prescription with free sample of trelegy, but she was afraid to use it. We talked about and she agreed to use it she will pick it up to pharmacy. In the meantime she appears to have some diaphragmatic spasms and will be recently to try antispasmodic medication to see if she gets some relief. 09/30/2022 the patient is here for a pulmonary follow-up visit. From a respiratory status the patient is doing better on the Trelegy. However, it is extremely expensive for. In addition to that she hits the donut hole in the z[place] that is very difficult for her to get any of her medications. Therefore we talked about different options in order to see if we can get her on a regimen that is more financially reasonable. She will try to use a good Rx card for AirDuo and will send Incruse to the pharmacy. she still complains of significant arthralgias and myalgias. She is concerned about the positive RENEE. She is following closely with Rheumatology. She is considering a 2nd opinion. In addition to this the patient has underlying sleep apnea. The CPAP therapy has been affecting beneficial. She does use it for more than 4 hours a night. 03/27/2023 the patient is here for a pulmonary follow-up visit. She continues on the Trelegy. She was able to get some samples and became a little bit more recently. I do also have a coupon card to provide her. Therefore she can continue her respiratory medications that appears to be working for her. She is still having episodes of pleuritic back and chest pain. Primarily on the right side. Denies any palpitations or any hemoptysis. She does have some lower extr emity edema. We did have her undergo blood work including a D-dimer that was negative. Therefore we can hold off on a CT angio. In the meantime will request a chest x-ray to see if acted explain her ongoing symptoms. If the x- ray is not helpful then will have to get a CT scan of the chest to address for any underlying pleural base disease. The patient does have underlying connective tissue disorders. she also has significant arthritis. She has had a positive RENEE and the rest of the workup that has been done has been inconclusive. Therefore, will refer to Rheumatology in order to further evaluate for connective tissue conditions. Patient continues use her CPAP every night. CPAP therapy continues to be affecting beneficial. She does use it for 4 hours a night. 09/04/2023 the patient is here for a pulmonary follow-up visit. The patient is still recovering from her abdominal surgeries. She is feeling well though he is had significant amount of discomfort. She had more fluid accumulation had to have a drain replaced. The area appears to be healing better. In the meantime she has not been using her CPAP. She has been sleeping better and she has not been complaining of significant snoring or daytime drowsiness. Her [place] score is decreased down to 7/24. Therefore will continue to monitor her symptoms and she will continue with positional therapy. We will consider repeating the sleep study during the next visit. She also stopped using the Trelegy inhaler because it was too expensive. She does have the nebulized therapy with DuoNeb that she uses up to twice a day which appears to be effective and more reasonable giles. Therefore will go ahead and hold off on the Trelegy at this time. The patient also has been complaining of some left- sided pleuritic chest discomfort and back discomfort upon deep breathing specially after her surgery. She has not had a chest x-ray as of yet. The for will have her get an x-ray today. She will continue with the current respiratory therapy and will follow-up in 6-8 months. Which time will discuss the whole CPAP issue. If her chest x-ray is abnormal I will call her further recommendations based on the forthcoming data. 02/25/2024 the patient is here for a pulmonary follow-up visit. The patient overall has been doing fair. She still complains of his ongoing symptoms of dizziness weakness fatigue just does not feel good overall. Breathing landis she is doing okay. She is responding well to the inhaler although is extremely expensive for her. She did get samples from her primary care and she has been using it sparingly to try to make it last. At this point will go ahead and switch her back to her nebulized treatments with the DuoNeb in addition to budesonide in order to see about getting her effective treatments more reasonable. The patient also has had issues with anemia. That can also be contributing to her underlying symptoms. Will go ahead and repeat her blood work I do believe that previously she was seeing Dr. Ledbetter from Hematology. Will go ahead and refer her to Hematology here in order for her to address her significant anemia iron deficiency and potentially need for IV iron since she has not responding to her oral supplementation. Indeed this will help her breathing and will help her other constitutional symptoms. 05/21/2024 the patient is here for a pulmonary follow-up visit. The patient is doing better from respiratory status. She does have a surgery coming up for her ventral hernia. This will happen in [place]. In the meantime her respiratory medications have been optimized. We did do spirometry in the office. She does have a mild obstruction. Although clinically the patient doing well without any significant wheezing on examination. She knows to continue her nebulized treatments in 2 use her nebulizer even prior to surgery. The patient understands that she does have increased risk for perioperative pulmonary complications which includes; bronchospasms, atelectasis, hypoxia and pneumonia. She is medically optimized from a pulmonary standpoint and may be able to proceed with anesthesia and also her abdominal surgery. After surgery she will we require her bronchodilator therapy via nebulizer and also should also work on deep breathing exercises incentive spirometer to minimize atelectasis and Pneumonia. Early mobilization is gandhi. The patient will continue with the current respiratory regimen. In the meantime the patient has not been using her CPAP. She has only been using positional therapy. She should be monitor for nocturnal hypoxia during her postoperative period. The patient follow-up 3-4 months. If she has any worsening symptoms prior to that she will call for an earlier assessment. 06/09/2025 the patient is here for a pulmonary follow-up visit. She is still struggling with her ongoing symptoms. She seems to have flare-ups where she has significant pains and discomfort. Recently she was seen by her primary care doctor for significant chest pain likely related to pleuritis. In addition to that sometimes she has abdominal discomfort and sometimes she gets significant swelling of her extremities. She had been seen by Rheumatology but at that point nothing really came out of it. Her laboratories always been abnormal with an elevated RENEE although the rest have been negative. Will go ahead and request additional blood work since it has been almost a year since she has had any blood work for her immune issues. In addition to that with the persistent pleuritis in the chest discomfort is reasonable to try her on a course of hydroxychloroquine to see if this provides some relief. The patient is also wondering about celiac disease specially with abdominal discomfort and her swelling and her family history of it. 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 COVID-19 BRIANA on CPAP Hiatal hernia Asthma Spasm of diaphragm Surgical History Hx of hernia repair Family History Father Liver disease Alcoholic cirrhosis of liver Mother Ovarian cancer Social History Household Members: Spouse and Children Alcohol intake: current Alcohol intake frequency: holidays/special occasions only Patient Tobacco Use Status: Never used Tobacco Current occupational status: unemployed Review of Systems Const Denies fever(s) and Denies night sweats ENT Denies change in voice, Denies dizziness, Denies lip swelling, Denies mouth pain, Reports nasal congestion, Reports nasal discharge and Denies tongue swelling Card Denies chest pain, Reports leg edema and Reports dyspnea on exertion Resp Denies change in phlegm color, Denies chest congestion, Reports cough, Denies hemoptysis, Reports dyspnea on exertion and Denies wheezing GI Reports abdominal pain Musc Reports as per HPI, Reports back pain, Reports myalgias and Reports arthralgias Skin/Breast Denies rash Neuro Denies Neuro-related abnormal movements and Denies dizziness Psych Denies no additional complaints Errol/Lymph Denies easy bleeding and Denies lymphadenopathy Aller/Immun Denies lip swelling, Denies tongue swelling and Denies wheezing Physical Exam Vital Signs: Last Vital Signs Pulse 75 12/10/24 15:22 BP 140/96 H 12/10/24 15:22 Pulse Ox 99 12/10/24 15:22 Oxygen Delivery Method Room Air 12/10/24 15:22 BMI result Body Mass Index 35.9 Const General: alert Neck Neck: Yes normal visual inspection, Yes full ROM and Yes no lymphadenopathy Chest Chest palpation & inspection: normal inspection of the chest Resp Effort & Inspection: normal respiratory effort Auscultation: diminished lung sounds Cardio Rate: regular rate Rhythm: regular rhythm Heart sounds: S1 normal heart sound present and S2 normal heart sound present GI Palpation (GI): Soft to palpation, nontender and Other GI palpation findings p resent (reducible ventral hernia) Auscultation: normal bowel sounds Skin General skin exam: rashes and/or lesions noted Extrem General: Yes edema (LE bilateral-non pitting) Right upper extremity: no cyanosis Assessment & Plan Assessment & Plan (1) BRIANA on CPAP: Code(s): G47.33 - Obstructive sleep apnea (adult) (pediatric); Z99.89 - Dependence on other enabling machines and devices Category: Medical (2) Hiatal hernia: Code(s): K44.9 - Diaphragmatic hernia without obstruction or gangrene Category: Medical (3) Asthma: Code(s): J45.909 - Unspecified asthma, uncomplicated Category: Medical Qualifiers: Asthma complication type: uncomplicated Asthma persistence: persistent Asthma severity: moderate Qualified Code(s): J45.40 - Moderate persistent asthma, uncomplicated (4) Ventral hernia: Comment: s/p repair Code(s): K43.9 - Ventral hernia without obstruction or gangrene Category: Medical Qualifiers: Obstruction and gangrene presence: without obstruction or gangrene Qualified Code(s): K43.9 - Ventral hernia without obstruction or gangrene (5) Pleuritic chest pain: Code(s): R07.81 - Pleurodynia Category: Medical (6) RENEE positive: Code(s): R76.8 - Other specified abnormal immunological findings in serum Category: Medical (7) Anemia: Code(s): D64.9 - Anemia, unspecified Category: Medical Qualifiers: Anemia type: unspecified type Qualified Code(s): D64.9 - Anemia, unspecified (8) Asthma-COPD overlap syndrome: Code(s): J44.89 - Other specified chronic obstructive pulmonary disease Category: Medical (9) Pleuritis: Code(s): R09.1 - Pleurisy Category: Medical Plan DuoNebs BID budesondie positional sleep therapy, no CPAP at this time bloodwork Trial Plaquenil Follow-up 3-4 months Orders: Orders Sm Sm/FOREIGN EXCHANGE CLERK Antibodies 12/10/24 R09.1 - Pleurisy MARU 1 Antibody 12/10/24 R09.1 - Pleurisy Rast Allergen 12/10/24 R09.1 - Pleurisy, R10.9 - Unspecified abdominal pain Anti DNA DS Antibody 12/10/24 R09.1 - Pleurisy RENEE Reflex Titer and Pattern 12/10/24 R09.1 - Pleurisy Erythrocyte Sedimentation Rate 12/10/24 R09.1 - Pleurisy Medications: New hydroxychloroquine 200 mg PO DAILY 30 tabs 6RF 30 days Coding Level of Care Code Est Pt Level 4 (34949) Complex EM visit Add On G2211 Diagnoses BRIANA on CPAP G47.33; Z99.89 Hiatal hernia K44.9 Moderate persistent asthma without complication J45.40 Asthma complication type: uncomplicated Asthma persistence: persistent Asthma severity: moderate Ventral hernia without obstruction or gangrene K43.9 Obstruction and gangrene presence: without obstruction or gangrene Pleuritic chest pain R07.81 RENEE positive R76.8 Anemia, unspecified type D64.9 Anemia type: unspecified type Asthma-COPD overlap syndrome J44.89 Pleuritis R09.1 Time Spent (min) 17
== END 2024-12-10 15:53 | disposition home or self-care (01) ==
PROVIDERS: PCP Internal Medicine; Visit Provider Hospitalist
DX: G47.33 Obstructive sleep apnea (adult) (pediatric) (principal); Z99.89 Dependence on other enabling machines and devices; K44.9 Diaphragmatic hernia without obstruction or gangrene; J45.40 Moderate persistent asthma, uncomplicated; K43.9 Ventral hernia without obstruction or gangrene; R07.81 Pleurodynia; R76.8 Other specified abnormal immunological findings in serum; D64.9 Anemia, unspecified; J44.89 Other specified chronic obstructive pulmonary disease; R09.1 Pleurisy
CPT/HCPCS: 99214; G2211

== ENCOUNTER 2025-04-05 15:34 | Outpatient (AMB) | payer MEDICARE, SELFPAY ==
[2025-04-05 15:36] VITALS: BP 110/76; PULSE 77; O2SAT 97; BMI 36.3
--- NOTE | 2025-04-05 15:36 | A.OFFVIS_ITS ---
Vital Signs 04/05/25 15:36 Height 5 ft 2 in Weight 198 lb 6.656 oz BMI 36.3 BP 110/76 Blood Pressure Location Lt brachial Position Sitting Pulse 77 Pulse Source Pulse Oximeter Pulse Oximetry (%) 97 Oxygen Delivery Method Room Air Intake Visit Reasons: Asthma Cut And Print Machine Operator Required: No Accompanied by: Self / Same As Patient Allergies Penicillins Allergy (Severe, Verified 04/05/25 15:38) DIFFICULTY BREATHING HPI Comments Details: The patient is a 59-year-old woman with known history of asthma in addition to hiatal hernia. over the summer she did have surgery for her abdominal hernia with significant manipulations of the muscles of her torso. After surgery she has been complaining of some pleuritic back and chest pain. Primarily to the left side and is not always. Moderate in severity. It does keep her from taking a deep breath. She did undergo a CT scan of the abdomen over the summer demonstrating some atelectasis mainly to the left base but also to the right. She is also having issues with her inhalers. She was responded very well to the Symbicort and Tudorza. However, her insurance is no longer covering the Tudorza. I have given a prescription with free sample of trelegy, but she was afraid to use it. We talked about and she agreed to use it she will pick it up to pharmacy. In the meantime she appears to have some diaphragmatic spasms and will be recently to try antispasmodic medication to see if she gets some relief. 09/30/2022 the patient is here for a pulmonary follow-up visit. From a respiratory status the patient is doing better on the Trelegy. However, it is extremely expensive for. In addition to that she hits the donut hole in the that is very difficult for her to get any of her medications. Therefore we talked about different options in order to see if we can get her on a regimen that is more financially reasonable. She will try to use a good Rx card for AirDuo and will send Incruse to the pharmacy. she still complains of significant arthralgias and myalgias. She is concerned about the positive RENEE. She is following closely with Rheumatology. She is considering a 2nd opinion. In addition to this the patient has underlying sleep apnea. The CPAP therapy has been affecting beneficial. She does use it for more than 4 hours a night. 03/27/2023 the patient is here for a pulmonary follow-up visit. She continues on the Trelegy. She was able to get some samples and became a little bit more recently. I do also have a coupon card to provide her. Therefore she can continue her respiratory medications that appears to be working for her. She is still having episodes of pleuritic back and chest pain. Primarily on the right side. Denies any palpitations or any hemoptysis. She does have some lower extremity edema. We did have her undergo blood work including a D-dimer that was negative. Therefore we can hold off on a CT angio. In the meantime will request a chest x-ray to see if acted explain her ongoing symptoms. If the x- ray is not helpful then will have to get a CT scan of the chest to address for any underlying pleural base disease. The patient does have underlying connective tissue disorders. she also has significant arthritis. She has had a positive RENEE and the rest of the workup that has been done has been inconclusive. Therefore, will refer to Rheumatology in order to further evaluate for connective tissue conditions. Patient continues use her CPAP every night. CPAP therapy continues to be affecting beneficial. She does use it for 4 hours a night. 09/04/2023 the patient is here for a pulmonary follow-up visit. The patient is still recovering from her abdominal surgeries. She is feeling well though he is had significant amount of discomfort. She had more fluid accumulation had to have a drain replaced. The area appears to be healing better. In the meantime she has not been using her CPAP. She has been sleeping better and she has not been complaining of significant snoring or daytime drowsiness. Her Winkelman score is decreased down to 7/24. Therefore will continue to monitor her symptoms and she will continue with positional therapy. We will consider repeating the sleep study during the next visit. She also stopped using the Trelegy inhaler because it was too expensive. She does have the nebulized therapy with DuoNeb that she uses up to twice a day which appears to be effective and more reasonable giles. Therefore will go ahead and hold off on the Trelegy at this time. The patient also has been complaining of some left- sided pleuritic chest discomfort and back discomfort upon deep breathing specially after her surgery. She has not had a chest x-ray as of yet. The for will have her get an x-ray today. She will continue with the current respiratory therapy and will follow-up in 6-8 months. Which time will discuss the whole CPAP issue. If her chest x-ray is abnormal I will call her further recommendations based on the forthcoming data. 02/25/2024 the patient is here for a pulmonary follow-up visit. The patient over all has been doing fair. She still complains of his ongoing symptoms of dizziness weakness fatigue just does not feel good overall. Breathing landis she is doing okay. She is responding well to the inhaler although is extremely expensive for her. She did get samples from her primary care and she has been using it sparingly to try to make it last. At this point will go ahead and switch her back to her nebulized treatments with the DuoNeb in addition to budesonide in order to see about getting her effective treatments more reasonable. The patient also has had issues with anemia. That can also be contributing to her underlying symptoms. Will go ahead and repeat her blood work I do believe that previously she was seeing Dr. Ledbetter from Hematology. Will go ahead and refer her to Hematology here in order for her to address her significant anemia iron deficiency and potentially need for IV iron since she has not responding to her oral supplementation. Indeed this will help her breathing and will help her other constitutional symptoms. 05/21/2024 the patient is here for a pulmonary follow-up visit. The patient is doing better from respiratory status. She does have a surgery coming up for her ventral hernia. This will happen in [place]. In the meantime her respiratory medications have been optimized. We did do spirometry in the office. She does have a mild obstruction. Although clinically the patient doing well without any significant wheezing on examination. She knows to continue her nebulized treatments in 2 use her nebulizer even prior to surgery. The patient u nderstands that she does have increased risk for perioperative pulmonary complications which includes; bronchospasms, atelectasis, hypoxia and pneumonia. She is medically optimized from a pulmonary standpoint and may be able to proceed with anesthesia and also her abdominal surgery. After surgery she will we require her bronchodilator therapy via nebulizer and also should also work on deep breathing exercises incentive spirometer to minimize atelectasis and Pneumonia. Early mobilization is gandhi. The patient will continue with the current respiratory regimen. In the meantime the patient has not been using her CPAP. She has only been using positional therapy. She should be monitor for nocturnal hypoxia during her postoperative period. The patient follow-up 3-4 months. If she has any worsening symptoms prior to that she will call for an earlier assessment. 06/09/2025 the patient is here for a pulmonary follow-up visit. She is still struggling with her ongoing symptoms. She seems to have flare-ups where she has significant pains and discomfort. Recently she was seen by her primary care doctor for significant chest pain likely related to pleuritis. In addition to that sometimes she has abdominal discomfort and sometimes she gets significant swelling of her extremities. She had been seen by Rheumatology but at that point nothing really came out of it. Her laboratories always been abnormal with an elevated RENEE although the rest have been negative. Will go ahead and request additional blood work since it has been almost a year since she has had any blood work for her immune issues. In addition to that with the persistent pleuritis in the chest discomfort is reasonable to try her on a course of hydroxychloroquine to see if this provides some relief. The patient is also wondering about celiac disease specially with abdominal discomfort and her swelling and her family history of it. 04/05/2025 the patient is here for pulmonary follow-up visit. Overall she is still about the same. She is still complaining that not clear if he understands what is going on with her. She feels like her muscles are getting weaker where she has a hard time even going up a flight of stairs. She does have an elevated RENEE and we did send her a trial of Plaquenil sometime ago and the patient did not see any significant improvement with her myalgias and arthralgias. She also complains of chest discomfort. Her RENEE had gone up significantly. We did try to assess her for polymyositis but we can not get the blood work done. She has seen Rheumatology in the past. I will refer her to Rheumatology again to see into the diagnosis of polymyositis. No evidence of any interstitial involvement although she does have the evidence of pleuritis. Will go ahead and place him on some prednisone to see this provides some relief of her symptoms. If it does it should be a clue that indeed is an inflammatory process. In the meantime she continues use the nebulizer therapy with good effect. Will follow-up in 4 months. If she has any issues prior to this she will call for an earlier assessment. 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 COVID-19 BRIANA on CPAP Hiatal hernia Asthma Spasm of diaphragm Surgical History Hx of hernia repair Family History Father Liver disease Alcoholic cirrhosis of liver Mother Ovarian cancer Social History Household Members: Spouse and Children Alcohol intake: current Alcohol intake frequency: holidays/special occasions only Patient Tobacco Use Status: Never used Tobacco Current occupational status: unemployed Review of Systems Const Denies fever(s) and Denies night sweats ENT Denies change in voice, Denies dizziness, Denies lip swelling, Denies mouth pain, Reports nasal congestion, Reports nasal discharge and Denies tongue swelling Card Denies chest pain, Reports leg edema and Reports dyspnea on exertion Resp Denies change in phlegm color, Denies chest congestion, Reports cough, Denies hemoptysis, Reports dyspnea on exertion and Denies wheezing GI Reports abdominal pain Musc Reports as per HPI, Reports back pain, Reports myalgias and Reports arthralgias Skin/Breast Denies rash Neuro Denies Neuro-related abnormal movements and Denies dizziness Psych Denies no additional complaints Errol/Lymph Denies easy bleeding and Denies lymphadenopathy Aller/Immun Denies lip swelling, Denies tongue swelling and Denies wheezing Physical Exam Vital Signs: Last Vital Signs Pulse 77 04/05/25 15:36 BP 110/76 04/05/25 15:36 Pulse Ox 97 04/05/25 15:36 Oxygen Delivery Method Room Air 04/05/25 15:36 BMI result Body Mass Index 36.3 Const General: alert Neck Neck: Yes normal visual inspection, Yes full ROM and Yes no lymphadenopathy Chest Chest palpation & inspection: normal inspection of the chest Resp Effort & Inspection: normal respiratory effort Auscultation: diminished lung sounds Cardio Rate: regular rate Rhythm: regular rhythm Heart sounds: S1 normal heart sound present and S2 normal heart sound present GI Palpation (GI): Soft to palpation, nontender and Other GI palpation findings present (reducible ventral hernia) Auscultation: normal bowel sounds Skin General skin exam: rashes and/or lesions noted Extrem General: Yes edema (LE bilateral-non pitting) Right upper extremity: no cyanosis Assessment & Plan Assessment & Plan (1) Positive antinuclear antibody: Code(s): R76.8 - Other specified abnormal immunological findings in serum Category: Medical (2) BRIANA on CPAP: Code(s): G47.33 - Obstructive sleep apnea (adult) (pediatric); Z99.89 - Dependence on other enabling machines and devices Category: Medical (3) Hiatal hernia: Code(s): K44.9 - Diaphragmatic hernia without obstruction or gangrene Category: Medical (4) Asthma: Code(s): J45.909 - Unspecified asthma, uncomplicated Category: Medical Qualifiers: Asthma complication type: uncomplicated Asthma persistence: persistent Asthma severity: moderate Qualified Code(s): J45.40 - Moderate persistent asthma, uncomplicated (5) Ventral hernia: Comment: s/p repair Code(s): K43.9 - Ventral hernia without obstruction or gangrene Category: Medical Qualifiers: Obstruction and gangrene presence: without obstruction or gangrene Qualified Code(s): K43.9 - Ventral hernia without obstruction or gangrene (6) Pleuritic chest pain: Code(s): R07.81 - Pleurodynia Category: Medical (7) Anemia: Code(s): D64.9 - Anemia, unspecified Category: Medical Qualifiers: Anemia type: unspecified type Qualified Code(s): D64.9 - Anemia, unspecified (8) Asthma-COPD overlap syndrome: Code(s): J44.89 - Other specified chronic obstructive pulmonary disease Category: Medical (9) Pleuritis: Code(s): R09.1 - Pleurisy Category: Medical Plan DuoNebs BID budesonde BID positional sleep therapy, no CPAP at this time Plaquenil not effective Trial Prednisone taper Rheumatology referral consider repeating EMG Follow-up 3-4 months Orders: Referrals Rheumatology Referral R76.8 - Other specified abnormal immunological findings in serum Medications: New prednisone PO daily; Take 4 tabs x 4 days, then 3 tabs x 4 days, then 2 tabs daily x 4 days, then 1 tab x 4 days to complete. 40 tabs 0RF 16 days Coding Level of Care Code Est Pt Level 4 (03361) Complex EM visit Add On G2211 Diagnoses Positive antinuclear antibody R76.8 BRIANA on CPAP G47.33; Z99.89 Hiatal hernia K44.9 Moderate persistent asthma without complication J45.40 Asthma complication type: uncomplicated Asthma persistence: persistent Asthma severity: moderate Ventral hernia without obstruction or gangrene K43.9 Obstruction and gangrene presence: without obstruction or gangrene Pleuritic chest pain R07.81 Anemia, unspecified type D64.9 Anemia type: unspecified type Asthma-COPD overlap syndrome J44.89 Pleuritis R09.1 Time Spent (min) 20
--- OUTSIDE RECORDS SUMMARY | 2025-04-05 18:05 | XMS_ITS | Encounter Summary ---
Author Organization [facility] Address [address] [place] [address] Care Team Providers Care Compliance Director Name Role Phone Bo Hayden Primary Care Provider [phone] Encounter Details Date Type Department Care Team (Late st Contact Info) Description 02/16/2024 Orders Only [facility] [address] [place] [address] Marco Antonio Person MD [address], [place] [id number] Social History Tobacco Use Types Packs/Day Years [...] on filedocumented in this encounter Care Teams Compliance Director Relationship Specialty Start Date End Date Bo Hayden PCP - General Internal Medicine 10/04/19 documented as of this encounter
== END 2025-04-05 16:07 | disposition home or self-care (01) ==
LOC: HO.HPS 15:35
PROVIDERS: PCP Internal Medicine; Visit Provider Hospitalist
DX: R76.8 Other specified abnormal immunological findings in serum (principal); G47.33 Obstructive sleep apnea (adult) (pediatric); Z99.89 Dependence on other enabling machines and devices; K44.9 Diaphragmatic hernia without obstruction or gangrene; J45.40 Moderate persistent asthma, uncomplicated; K43.9 Ventral hernia without obstruction or gangrene; R07.81 Pleurodynia; D64.9 Anemia, unspecified; J44.89 Other specified chronic obstructive pulmonary disease; R09.1 Pleurisy
CPT/HCPCS: 99214; G2211

== ENCOUNTER → 2025-04-05 15:34 | Outpatient (BNVA) | payer MEDICARE, SELFPAY | PROVIDERS: PCP Internal Medicine; Visit Provider Hospitalist | DX: J45.40 Moderate persistent asthma, uncomplicated (principal); J44.89 Other specified chronic obstructive pulmonary disease; R09.1 Pleurisy; R76.8 Other specified abnormal immunological findings in serum; R07.81 Pleurodynia; D64.9 Anemia, unspecified; K43.9 Ventral hernia without obstruction or gangrene; K44.9 Diaphragmatic hernia without obstruction or gangrene; G47.33 Obstructive sleep apnea (adult) (pediatric); Z99.89 Dependence on other enabling machines and devices | CPT/HCPCS: 99212 ==

== ENCOUNTER 2025-04-11 12:50 | Outpatient (REF) | payer MEDICARE, SELFPAY ==
--- OUTSIDE RECORDS SUMMARY | 2025-04-11 14:10 | XMS_ITS ---
Author Name [facility] Organization Unknown Encounters Encounter Type Encounter Reason Primary Diagnosis Location Date Ambulatory [facility] 07/30/2024 Care Team Organization Name Specialty Phone Email Start Date End Da te [facility] 2024
[2025-04-12 22:29] LABS: JO 1 Antibody <1.0 NEG AI (<1.0 NEG)
== END 2025-04-11 12:51 | disposition home or self-care (01) ==
LOC: HO.LAB 12:50
PROVIDERS: PCP Internal Medicine; Visit Provider Hospitalist
DX: R76.8 Other specified abnormal immunological findings in serum (principal); M19.90 Unspecified osteoarthritis, unspecified site
CPT/HCPCS: 36415; 86235

== ENCOUNTER 2025-04-13 09:55 | Outpatient (REF) | payer MEDICARE, SELFPAY ==
[2025-04-16 15:08] LABS: Ej Ab <11 SI (<11); Jo-1 Ab <11 SI (<11); MDA5 Ab <11 SI (<11); Mi-2 alpha Ab <11 SI (<11); Mi-2 beta Ab <11 SI (<11); NXP-2 (MJ) Ab <11 SI (<11); Oj Ab <11 SI (<11); Pl-12 Ab <11 SI (<11); Pl-7 Ab <11 SI (<11); SRP Ab <11 SI (<11); TIF1 gamma Ab <11 SI (<11)
[2025-04-16 20:23] LABS: Aldolase 3.9 U/L (<=8.1)
== END 2025-04-13 09:56 | disposition home or self-care (01) ==
LOC: HO.LAB 09:55
PROVIDERS: PCP Internal Medicine; Visit Provider Hospitalist
DX: R76.8 Other specified abnormal immunological findings in serum (principal); R09.1 Pleurisy
CPT/HCPCS: 36415; 82085; 84182; 86235

== ENCOUNTER → 2025-05-22 07:21 | Outpatient (BNV) | payer MEDICARE, SELFPAY | PROVIDERS: Emergency Provider Emergency Medicine Emergency Medical Services; PCP Internal Medicine; Visit Provider Specialist | DX: R07.9 Chest pain, unspecified (principal); M25.512 Pain in left shoulder | CPT/HCPCS: 73030 ==

== ENCOUNTER 2025-05-22 07:35 | Emergency (ER) | payer MEDICARE, SELFPAY ==
--- NOTE | ~2025-05-22 | XR_ITS ---
CLINICAL HISTORY: left shoulder pain 4 view left shoulder Comparison: None provided Findings: Bones intact. No dislocations. No significant loss of joint space or osteophytes. No erosions. No radiopaque foreign body. IMPRESSION: 1. No acute findings This document has been electronically signed by: Bruno Moore MD on 05/22/2025 08:33:03
--- NOTE | ~2025-05-22 | XR_ITS ---
CLINICAL HISTORY: chest discomfort 2 view chest x-ray Comparison: CR/SR - XR CHEST 2 VIEWS - 09/04/23 13:54 EST Findings: The lungs are clear. Heart size is normal. No acute fracture. IMPRESSION: 1. No acute findings. This document has been electronically signed by: Raghav Mccallum MD on 05/22/2025 09:25:22
[2025-05-22 07:43] VITALS: BP 144/84; PULSE 82; RESP 19; TEMP 36.6; O2SAT 99; BMI 36.2
--- NOTE | 2025-05-22 07:48 | ECG_ITS ---
Test Reason : LEFT ARM PAIN Blood Pressure : */* mmHG Vent. Rate : 71 BPM Atrial Rate : 71 BPM P-R Int : 152 ms QRS Dur : 86 ms QT Int : 380 ms P-R-T Axes : 60 -50 43 degrees QTcB Int : 412 ms Normal sinus rhythm Left axis deviation Nonspecific ST abnormality Abnormal ECG When compared with ECG of 23-Nov-2021 14:38, Nonspecific T wave abnormality no longer evident in Anterior leads Referred By: Generic ED Physician Electronically Signed By: NICKY MACKENZIE MD
--- NOTE | 2025-05-22 08:28 | ED_ITS ---
HPI - General Adult General Chief complaint: General Medical Stated complaint: L left arm pain for days Time Seen by Provider: 05/22/25 08:09 Source: patient Mode of arrival: ambulatory Limitations: no limitations History of Present Illness ED Provider: YADIRA PATEL PA-C HPI narrative: 60 year old female with pmhx significant for asthma/COPD, BRIANA on CPAP, arthritis, anemia presents to the ED today for evaluation of intermittent left arm pain 3 days. Reports waking up the past 3 nights with pain in her LUE, extending from left upper arm down into her fingers with associated numbness/tingling. This sensation lasts <1 hour. Reports sleeping on her side however cannot discern if she was lying on her left side when she awoke with the pain. Denies any blunt injury/trauma/falls. Admits to intermittent episodes of chest discomfort , no pain, over the last few weeks. No associated palpitations, shortness of breath, lower extremity pain or swelling. She reports history of similar discomfort in the past with unremarkable cardiac work up. Denies recent travel or long car rides. At present, she is asymptomatic. She denies any LUE pain/numbness/tingling. Denies chest pain or discomfort. Related Data Home Medications ?Medication ?Instructions ?Recorded ?Confirmed pantoprazole 40 mg tablet,delayed 40 mg PO DAILY 08/0405/26/24 release cetirizine 10 mg tablet (Zyrtec) 10 mg PO DAILY PRN ye s 04/02/22 05/26/24 naproxen sodium 220 mg tablet 220 mg PO BID PRN prn 05/26/24 (Aleve) nebulizers 09/30/22 05/26/24 losartan 50 mg tablet 50 mg PO DAILY 10/07/2305/12 metformin 500 mg tablet 1,000 mg PO BID 10/07/2305/12 atorvastatin 20 mg tablet 20 mg PO DAILY 02/25/2405/12 ascorbic acid (vitamin C) 500 mg 500 mg PO DAILY 03/1005/26/24 tablet (Vitamin C) Previous Rx's ?Medication ?Instructions ?Recorded ipratropium 0.5 mg-albuterol 3 mg 3 ml inhalation BID 30 days #180 mL 02/26/24 (2.5 mg base)/3 mL nebulization soln prednisone 10 mg tablet See Rx Instructions PO DAILY 16 04/05/25 days #40 tabs budesonide 0.25 mg/2 mL suspension 0.25 mg (2 mL) inha lation DAILY 30 05/23/25 for nebulization days #60 mL Allergies Allergy/AdvReac Type Severity Reaction Status Date / Time Penicillins Allergy Severe DIFFICULTY Verified 05/22/25 07:47 BREATHING Review of Systems 2 Review of Systems: Constitutional: No fever, chills, fatigue, night sweats, weight changes ENT/Mouth: No ear pain, hearing loss, nasal congestion, sinus pain, rhinorrhea, sore throat Eyes: No eye pain, swelling, redness, vision changes, discharge Cardio: No chest pain, palpitations, [place], orthopnea, peripheral edema Pulm: No SOB, cough, sputum, wheezing, dyspnea, hemoptysis GI: No nausea, vomiting, hematemesis, abdominal pain, diarrhea, constipation, hematochezia, melena : No irregular bleeding, dysuria, frequency, urgency, hesitancy, hematuria, flank pain, urinary flow changes, urinary incontinence or retention MSK: No back pain, neck pain, joint pain, myalgias, +L shoulder pain Skin: No lesions, rashes Neuro: No weakness, numbness, paresthesias, LOC, dizziness, headache Psych: No anxiety/panic, depression, SI/HI, AH/VH All other systems reviewed and are negative. [facility] Past Medical History Attestation statement: The following information was validated with the patient. 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 COVID-19 BRIANA on CPAP Hiatal hernia Asthma Spasm of diaphragm Surgical History Hx of hernia repair Family History Family History Father Liver disease Alcoholic cirrhosis of liver Mother Ovarian cancer Social History Social History Household Members: Spouse and Children Alcohol intake: current Alcohol intake frequency: holidays/special occasions only Patient Tobacco Use Status: Never used Tobacco Advance Directives: Yes Advance Directives Information Provided: No Advance Directives on File: No Do you have a plan to hurt others: No Plan Current occupational status: unemployed Physical Exam ED Vital Signs: Vital Signs - 24 hr 05/22/25 07:43 05/22/25 10:16 Temperature 98 F 97.8 F Pulse Rate 82 69 Respiratory Rate 19 18 Blood Pressure 144/84 H 109/71 Pulse Oximetry 99 99 Oxygen Delivery Method Room Air Room Air BMI result Body Mass Index 36.2 hypertensive, vitals are otherwise wnl General: Well appearing, in no acute distress. Skin: Warm, dry, intact. No rashes or lesions. Head: Normocephalic, atraumatic. EENT: Hearing is intact b/l. Conjunctiva clear. PERRLA. EOM intact. Moist mucous membranes.? Neck: Supple without LAD. FROM intact w/o pain. Cardiac: Chest wall symmetric. RRR. No JVD. Lungs: Normal respiratory effort without accessory muscle use. CTA bilaterally. Back: No midline spinous or paraspinal tenderness. No step off deformity. Ext:+FROM intact to left shoulder/elbow/wrist/digits without pain. no noted swelling to LUE. no erythema or overlying skin changes. SILT to LUE. negative tinel/phalen. 2+ radial and ulnar pulse intact. Neuro: AOx3. Normal speech. NIH 0. NV intact distally. Ambulating with steady gait. NIH Stroke Scale Internal: Initial- Upon Arrival Level of Consciousness: Alert Level of Consciousness Questions: Answers both questions correctly Level of Consciousness Commands: Performs both tasks correctly Best Gaze: Normal Visual: No visual loss Facial Palsy: Normal Motor Arm (Right): No drift Motor Arm (Left): No drift Motor Leg (Right): No drift Motor Leg (Left): No drift Limb Ataxia: Absent Sensory: Normal Best Language: No aphasia Dysarthia: Normal Extinction and Inattention: No abnormality Score: 0 Course Course Course Narrative: CBC without leukocytosis or left shift. No anemia. H&H stable. mildly hypomagnesemic at 1.5. Repletion provided in the ED today. No other acute electrolyte abnormalities requiring intervention. BUN mildly elevated to 22 with normal creatinine. Troponin undetectable. Chest x-ray without infiltrate or consolidation. X-ray left shoulder unremarkable. EKG showing normal sinus rhythm without acute ischemic changes or ST elevations. > Patient's workup is quite unremarkable. As symptoms are only present when patient is sleeping, I have suspicion that pain/numbness is positional. She is completely asymptomatic at present. will have her follow up with her outpatient providers. Patient has remained stable throughout ED visit today. Discussed worrisome signs and symptoms and when to return to the ED. All questions answered at this time. Patient is agreeable with disposition and stable for discharge. Medications Administered Discontinued Medications Generic Name Dose Route Start Last Admin Trade Name Freq PRN Reason Stop Dose Admin Magnesium Sulfate 2 gm in 50 mls @ 150 mls/hr 05/22/25 09:57 05/22/25 10:52 Magnesium Sulfate/H2o IV 05/22/25 10:16 Infused ONCE ONE Infusion Medical Decision Making Medical Decision Making [facility] Narrative: 60 year old female with pmhx significant for asthma/COPD, BRIANA on CPAP, arthritis, anemia presents to the ED today for evaluation of intermittent left arm pain 3 days. hypertensive, vitals are otherwise wnl. she is well appearing and in NAD. On exam of LUE, there is FROM intact to left shoulder/elbow/wrist/digits without pain. no noted swelling to LUE. no erythema or overlying skin changes. no reproducible TTP along LUE, SITL. negative tinnel/phalen. 2+ radial and ulnar pulse intact. no midline c spine tenderness or step off, FROM intact to c spine without pain. Differential diagnosis includes anemia, electrolyte abnormality, shoulder sprain/strain, tendonitis, cervical radiculopathy, cubital v carpal tunnel syndrome. Unlikely ACS, arrhythmia. I considered thoracic outlet obstruction however exam is quite benign, no deficit, neurovascularly intact. Plan for labs, ekg, cxr. Differential Diagnosis Differential Diagnoses: The differential diagnosis associated with the presentation includes as above. Admission/Observation not indicated. Lab Data [facility] Lab Attestation statement: I reviewed the patient's lab results. as above 05/22/25 08:55 05/22/25 08:55 Labs: Lab Results 05/22/25 Range/Units 08:55 WBC 4.8 (4.8-10.8) X10*3/uL RBC 4.47 (4.20-5.50) X10*6/uL Hgb 12.2 (12.0-16.0) g/dl Hct 35.8 L (37.0-47.0) % MCV 80.1 (80.0-98.0) fL MCH 27.3 (27.0-33.0) pg MCHC 34.1 (31.0-35.0) g/dl RDW 13.6 (11.0-16.0) % Plt Count 195 (160-400) X10*3/uL MPV 9.4 (9.4-12.3) fL Immature Gran % (Auto) 0.4 (0.0-0.4) % Neut % (Auto) 52.2 (45-73) % Lymph % (Auto) 31.9 (20-40) % [place] % (Auto) 10.5 (2-11) % Eos % (Auto) 4.2 H (0-4) % Baso % (Auto) 0.8 (0-2) % Lymph # (Auto) 1.5 (1.2-4.9) X10*3/uL [place] # (Auto) 0.5 (0.1-1.2) X10*3/uL Eos # (Auto) 0.2 (0.0-0.4) X10*3/uL Baso # (Auto) 0.0 (0.0-0.2) X10*3/uL Abs Immat Gran (auto) 0.02 (0.00-0.03) X10*3/uL Absolute Neuts (auto) 2.5 (2.0-8.3) x10*3/uL Absolute Nucleated RBC 0.000 (0.0-0.012) X10*3/uL Nucleated RBC % (auto) 0.0 (0.0-0.2) /100WBC Sodium 142 (135-145) mmol/L Potassium 4.1 (3.3-5.1) mmol/L Chloride 108 (96-108) mmol/L Carbon Dioxide 27 (22-29) mmol/L Anion Gap 11 L (12-20) BUN 22 H (9-16) mg/dL Creatinine 0.93 (0.5-1.4) mg/dL Estim Creat Clear Calc 67.8 Estimated GFR > 60 Random Glucose 114 (60-115) mg/dL Calcium 8.9 (8.4-10.2) mg/dL Magnesium 1.5 L (1.6-2.6) mg/dL Troponin I High Sens < 2.7 (<3.5-17.0) ng/L Independent Interpretation I performed an independent interpretation of an: Plain X-Ray Interpretation: xr left shoulder without fracture cx without infiltrate or consolidation EKG showing normal sinus rhythm with a rate of 71 beats per minute, QT 380, QTC 412, no acute ischemic changes or ST elevations Radiology Impression Discussion of test interpretation with radiology: I have reviewed the radiologist's reading. Radiologist Impression: Date of Service: 05/22/25 Procedure(s): XR shoulder LT min 2V Accession Number(s): [id number] cc: Generic ED Physician; Bo Hayden~ CLINICAL HISTORY: left shoulder pain 4 view left shoulder Comparison: None provided Findings: Bones intact. No dislocations. No significant loss of joint space or osteophytes. No erosions. No radiopaque foreign body. IMPRESSION: 1. No acute findings This document has been electronically signed by: Bruno Moore MD on 05/22/2025 08:33:03 Date of Service: 05/22/25 Procedure(s): XR chest 2V Accession Number(s): [id number] cc: Bo Hayden; Yadira Patel~ CLINICAL HISTORY: chest discomfort 2 view chest x-ray Comparison: CR/SR - XR CHEST 2 VIEWS - 09/04/23 13:54 EST Findings: The lungs are clear. Heart size is normal. No acute fracture. IMPRESSION: 1. No acute findings. This document has been electronically signed by: Raghav Mccallum MD on 05/22/2025 09:25:22 External Record Review External record reviewed: Inpatient record Prescription Management I considered prescription management with: Pain Medication Social Determinants Patient?s care significantly limited by Social Determinants of Health including: Other Social Determinant of Health Critical Care Time Critical Care Time Critical Care Time: No Discharge Plan Discharge Clinical Impression: Pain in left arm, Hypomagnesemia Patient Disposition: Home, Self-Care Instructions: Hypomagnesemia (ED), Arm Pain (ED) Additional Instructions: You were evaluated in the ED today for left arm pain. Your blood work shows mildly low magnesium - this was repleted today. Your blood work is otherwise reassuring. Your cardiac enzyme is normal. Your EKG is reassuring. Your chest xray is unremarkable. The xray of your left shoulder is normal. At this time, etiology of your left arm discomfort is unclear however it is reassuring that your symptoms resolve. I have suspicion that it may be due to the position of your arm while you sleep. Please follow up with your primary care provider outpatient. Return with any new or worsening symptoms. In the case of an emergency call 911. Prescriptions: No Action ipratropium-albuterol 0.5 mg-3 mg(2.5 mg base)/3 mL solution for nebulization 3 ml inhalation BID 30 Days Qty: 180 11RF budesonide 0.25 mg/2 mL suspension for nebulization 0.25 mg inhalation DAILY 30 Days Qty: 60 0RF ascorbic acid (vitamin C) [Vitamin C] 500 mg Tablet 500 mg PO DAILY pantoprazole 40 mg tablet,delayed release (DR/EC) 40 mg PO DAILY metformin 500 mg tablet 1,000 mg PO BID naproxen sodium [Aleve] 220 mg tablet 220 mg PO BID PRN (Reason: prn) cetirizine [Zyrtec] 10 mg tablet 10 mg PO DAILY PRN (Reason: yes) (DME) nebulizers Misc See Rx Instructions .Route Rx Instructions: As directed atorvastatin 20 mg tablet 20 mg PO DAILY Patient Comments: [id number] prednisone 10 mg tablet See Rx Instructions PO DAILY 16 Days Qty: 40 0RF Rx Instructions: PO daily; Take 4 tabs x 4 days, then 3 tabs x 4 days, then 2 tabs daily x 4 days, then 1 tab x 4 days to complete. losartan 50 mg tablet 50 mg PO DAILY Referrals: Bo Hayden MD [Primary Care Provider, Internal Medicine] Interventions: ED Discharge Assessment Last Done: 05/22/25 11:24 Discharge Date/Time: 05/22/25 11:25 Print Language: Citizen [place]
[2025-05-22 09:00] LABS: MANUAL DIFF FLAG NO
[2025-05-22 09:02] LABS: Hematocrit 35.8 % (37.0-47.0); Hemoglobin 12.2 g/dl (12.0-16.0); Imm Gran Abs Auto 0.02 X10*3/uL (0.00-0.03); Imm Gran Pct Auto 0.4 % (0.0-0.4); Lymphocytes Absolute Auto 1.5 X10*3/uL (1.2-4.9); Mean Corpuscular HGB Conc 34.1 g/dl (31.0-35.0); Mean Corpuscular Hemoglobin 27.3 pg (27.0-33.0); Mean Corpuscular Volume 80.1 fL (80.0-98.0); NRBC Abs Auto 0.000 X10*3/uL (0.0-0.012); NRBC Pct Auto 0.0 /100WBC (0.0-0.2); Platelet Count 195 X10*3/uL (160-400); Red Blood Count 4.47 X10*6/uL (4.20-5.50); White Blood Count 4.8 X10*3/uL (4.8-10.8)
[2025-05-22 09:16] LABS: Anion Gap 11 (12-20); Blood Urea Nitrogen 22 mg/dL (9-16); Calcium 8.9 mg/dL (8.4-10.2); Carbon Dioxide 27 mmol/L (22-29); Chloride 108 mmol/L (96-108); Creatinine Clr Calc Pharmacy 67.8; Estimated Glomerular Filt Rate > 60; Magnesium 1.5 mg/dL (1.6-2.6); Potassium 4.1 mmol/L (3.3-5.1); Sodium 142 mmol/L (135-145)
[2025-05-22 09:31] LABS: Troponin-I High Sensitivity < 2.7 ng/L (<3.5-17.0)
[2025-05-22 10:16] VITALS: BP 109/71; PULSE 69; RESP 18; TEMP 36.6; O2SAT 99
[2025-05-22] MEDS: Magnesium Sulfate/H2O 2 GM/50 ML PIGGYBACK IV (10:32)
[2025-05-22 11:24] VITALS: BP 109/71; PULSE 69; RESP 18; TEMP 36.6; O2SAT 99
== END 2025-05-22 11:25 | disposition home or self-care (01) ==
PROVIDERS: Physician Assistant Medical; Emergency Provider Emergency Medicine Emergency Medical Services; PCP Internal Medicine
DX: M79.602 Pain in left arm (principal); E83.42 Hypomagnesemia; G47.33 Obstructive sleep apnea (adult) (pediatric); J44.89 Other specified chronic obstructive pulmonary disease; R20.0 Anesthesia of skin
CPT/HCPCS: 36415; 71046; 73030; 80048; 83735; 84484; 85025; 93005; 96365; 99285; J3475

== ENCOUNTER → 2025-05-22 07:48 | Outpatient (BNV) | payer MEDICARE, SELFPAY | PROVIDERS: Emergency Provider Emergency Medicine Emergency Medical Services; PCP Internal Medicine; Visit Provider Internal Medicine Cardiovascular Disease | DX: R94.31 Abnormal electrocardiogram [ECG] [EKG] (principal); M79.602 Pain in left arm | CPT/HCPCS: 93010 ==

== ENCOUNTER 2025-09-27 15:05 | Outpatient (AMB) | payer MEDICARE, SELFPAY ==
--- OUTSIDE RECORDS SUMMARY | 2024-05-12 08:30 | XMS_ITS ---
Author Organization [facility] Address [address] [place] [address] Care Team Providers Care Family Resource Management Specialist Name Role Phone SAFIA BARTH Primary Care Provider [phone] [place], NURSING Unavailable [phone] REASON FOR VISIT 42/AWV ADD ON Encounters Encounter Location Date Provider Diagnosis [place] [phone] 05/12/2024 NURSING [place] Plan Of Treatment Next Appt Details Provider Name:SAFIA ONTIVEROS, 12/07/2025 01:45:00 PM, [address] [place] [address], [id number], Progress Notes * DEEPIKA SMITHOB: [birth year] (60 yo F)Acc No.[id number]:05/12/2024 Progress Note Patient: RASHAD MARSHALL Provider: Isaiah Vee :1965 A ge:59 Y S ex:Female Date:05/12/2024 Address:[address] [id number] Pcp:SAFIA BARTH Subjective: * Chief Complaints: * 4 2/AWV ADD ON * Electronic signature of [facility] on 09/27/2025 at 09:23 PM EST Sign off status: Pending * Provider: Isaiah Vee Date: 0 05/12/2024 Generated for Steven bowers/Rick/eTransmitting on: 1 11/28/2024 09:23 PM EST
--- OUTSIDE RECORDS SUMMARY | 2025-02-16 04:30 | XMS_ITS ---
Author Organization [facility] Address [address] [place] [address] Care Team Providers Care Vc++ Developer Name Role Phone SAFIA BARTH Primary Care Provider [place] Unavailable [phone] REASON FOR VISIT NV/27 AWV (post MD appt) Encounters Encounter Location Date Provider Diagnosis [place] [phone] 02/16/2025 [facility] Plan Of Treatment Next Appt Details Provider Name:SAFIA ONTIVEROS, 12/07/2025 01:45:00 PM, [address] [place] [address], [phone], Progress Notes * DEEPIKA SMITHOB: [birth year] (60 yo F)Acc No.[id number]:02/16/2025 Patient: RASHAD MARSHALL Provider: Isaiah Vee :1965 A ge:59 Y S ex:Female Date:02/16/2025 Address:[id number] Pcp:SAFIA BARTH Subjective: * Chief Complaints: * N V/27 AWV (post MD appt) Billing Information: * Procedure Codes: Care Plan Details* * Electronic signature of [facility] on 09/27/2025 at 09:22 PM EST Sign off status: Pending * Provider: Isaiah Vee Date: 0 02/16/2025 Generated for Steven bowers/Rick/Clifton on: 1 11/28/2024 09:22 PM EST
--- NOTE | 2025-09-27 15:13 | A.OFFVIS_ITS ---
Vital Signs 09/27/25 15:20 Height 52 ft Weight 201 lb 15.095 oz BMI 0.4 BP 140/74 H Blood Pressure Location Lt brachial Position Sitting Pulse 80 Pulse Source Pulse Oximeter Pulse Oximetry (%) 99 Oxygen Delivery Method Room Air Intake Visit Reasons: abnormal labs Intake Note: Patient presents today for abnormal labs follow up. Digital Account Supervisor Required: No Information Interpreted: non-clinical & clinical Accompanied by: Self / Same As Patient Allergies Penicillins Allergy (Severe, Verified 09/27/25 15:18) DIFFICULTY BREATHING Medication List - Last Reconciled 09/27/25 by Shante Barrios MD albuterol sulfate 90 mcg/actuation 2 inhalations inhalation Q6H PRN 30 days ascorbic acid (vitamin C) (Vitamin C) 500 mg PO DAILY budesonide 0.25 mg (2 mL) inhalation DAILY 30 days cetirizine (Zyrtec) 10 mg PO DAILY PRN ipratropium-albuterol 0.5 mg-3 mg(2.5 mg base)/3 mL 3 mL inhalation BID losartan 50 mg PO DAILY metformin 1,000 mg PO BID nebulizers As directed pantoprazole 40 mg PO DAILY HPI Comments Details: Patient is a 60-year-old female with hyperlipidemia, asthma, hypertension, diabetes, GERD and positive RENEE here today for follow up Interval History: Patient last seen 10/07/[address] Bustillos - New patient visit for the evaluation of positive RENEE - no evidence of autoimmune disease at this time Today - Not on any rheum meds - She was last seen in 2022 for a positive RENEE, but no signs of active autoimmune disease were found at that time. - She was referred back by her primary care provider after labs in March revealed her RENEE had doubled. - The patient reports experiencing constant, diffuse body aches that she feels are in her bones, with periods of flare-ups with severe pain, arm weakness, and difficulty with movement and lifting. - She also experiences intermittent numbness and tingling on her left side, lasting for about 10 minutes. - The pain is worse in the mornings and after prolonged sitting, requiring her to hold onto something to stand up. - She has a history of a fibromyalgia diagnosis approximately 20 years ago, which at the time was characterized by significant allodynia, though this is not a current symptom. - Past interventions include a trial of hydroxychloroquine, which provided no benefit, and prednisone for a lung issue, which made her feel significantly be tter. - Other relevant history includes a Factor V Leiden mutation, a past finding of abnormal kappa and lambda light chains, for which she received iron infusions, and hand puffiness and stiffness suspected to be lymphedema. - She maintains an active lifestyle, but finds that walking 3.5 miles for several consecutive days exacerbates her pain to the point where she can't move. Rheumatologic History: Initial History: This is a 58-year-old female presents for evaluation of positive RENEE. Patient states that for years she has been having diffuse body pains and weakness. She has pain in her hands, shoulders, legs, shins, knees. She has going up and down the stairs. She had feels that she has muscle pain and weakness. She is unaware of any family history of an autoimmune rheumatic disease. 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 There is no history of recurrent miscarriages. She denies any skin rashes. Denies any fevers. She denies any history suggestive of Raynaud's. She was evaluated by at least 2 rheumatologists. Most recent of which was Dr. Enamorado at the [facility] within last year. She states that she was seen [address] Enamorado and blood work was ordered and it was unremarkable according to patient. 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 Denies pain with light touch or pressure. - Musculoskeletal: Reports diffuse myalgia described as deep bone aches, joint stiffness, and weakness in arms. Reports puffy and stiff hands. Pain is worse in the morning and after periods of inactivity. - Neurological: Reports intermittent paresthesia on the left side. - Integumentary: Denies alopecia. - Eyes/Ears/Nose/Throat: Denies oral and nasal ulcers. - Cardiovascular/Respiratory: Denies history of fluid around the heart or lungs. - Genitourinary: Denies history of recurrent miscarriages. All other systems reviewed and are unremarkable except noted above Physical Exam Exam Exam: Vital signs reviewed Physical Examination CONSTITUITIONAL Patient alert and cooperative. Well appearing and in no apparent painful distress MSK Hands * Right Hand: Able to make a fist. No swelling or tenderness to palpation of the MCPs, PIPs or DIPs. * Left Hand: Able to make a fist. No swelling or tenderness to palpation of the MCPs, PIPs or DIPs. * Herbedens nodes noted bilaterally Wrists * Right Wrist: Full ROM to flexion and extension. No swelling or TTP * Left Wrist: Full ROM to flexion and extension. No swelling or TTP Elbows * Right Elbow: Full ROM. No swelling or TTP. No TTP of the medial epicondyle. No TTP of the lateral epicondyle * Left Elbow: Full ROM. No swelling or TTP. No TTP of the medial epicondyle. No TTP of the lateral epicondyle Shoulders * Right shoulder: No swelling noted. TTP of the AC joint. No TTP of the subacromial bursa. No TTP of the posterior shoulder * Left shoulder: No swelling noted. TTP of the AC joint. No TTP of the subacromial bursa. No TTP of the posterior shoulder Hip bursa: Tenderness to palpation bilaterally Knees * Right knee: Full ROM. No swelling noted. No TTP of the knee joint line. No TTP of pes anserine bursa * Left knee: Full ROM. No swelling noted. No TTP of the knee joint line. No TTP of pes anserine bursa. * Crepitations felt bilaterally Ankles * Right ankle: Good ankle dorsiflexion and plantar flexion. No swelling. No TTP of the ankle joint * Left ankle: Good ankle dorsiflexion and plantar flexion. No swelling. No TTP of the ankle joint Feet * Right foot: Negative squeeze test * Left foot: Negative squeeze test Tender points? * Tenderness to palpation of the bilateral trapezius, supraspinatus, anterior costochondral junctions, bilateral suboccipital muscle insertions SKIN No rashes Vital Signs: Last Vital Signs Pulse 80 09/27/25 15:20 BP 140/74 H 09/27/25 15:20 Pulse Ox 99 09/27/25 15:20 Oxygen Delivery Method Room Air 09/27/25 15:20 BMI result Body Mass Index 0.4 Results Reviewed Results Reviewed: Laboratory Tests 12/10/24 04/13/25 16:22 10:07 RENEE Screen POSITIVE A RENEE Titer 1:1280 H RENEE Pattern Nuclear, Speckled A MARU-1 Antibody <11 EJ Antibody <11 OJ Antibody <11 Mi-2-Alpha Ab <11 Mi-2-Beta Ab <11 NXP-2 Ab <11 PL-7 Antibody <11 PL-12 Antibody <11 SRP Ab <11 MDA5 Ab <11 Myos P155/140 TIF1-g Ab <11 Sm (Gibson) Antibody <1.0 NEG SM/LABOR ARBITRATOR IgG Antibody <1.0 NEG Double Strand DNA Ab <1 Endomysial IgA Ab Negative Assessment & Plan Assessment & Plan (1) RENEE positive: Code(s): R76.8 - Other specified abnormal immunological findings in serum Category: Medical Plan: #RENEE Patient is a 60-year-old female here today for evaluation of positive RENEE in the setting of myalgias. The patient has a positive RENEE that has recently doubled, but an extensive workup for specific autoimmune conditions like lupus, Sjogren's, and myositis has been negative. The positive RENEE is considered non- specific at this time and may not be pathogenic, as she lacks other clinical criteria for a defined autoimmune disease. 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 Plan - Methotrexate 15mg PO weekly - Folic acid 1 mg - RTC 4 months - Labs: CBC, CMP, ESR, CRP (2) Fibromyalgia: Code(s): M79.7 - Fibromyalgia Plan: #Fibromyalgia The patient's symptoms of chronic, widespread pain described as deep bone aches, morning stiffness, weakness, and flares are highly characteristic of fibromyalgia, a diagnosis she has carried for 20 years. Physical exam findings of tender points are also consistent with fibromyalgia. While the primary diagnosis appears to be fibromyalgia, a trial of an immunosuppressive medication is warranted to definitively rule out a contribution from an underlying inflammatory autoimmune process, given the positive RENEE. (3) Polyarticular osteoarthritis: Code(s): M15.9 - Polyosteoarthritis, unspecified Plan: #Polyarticular OA Physical exam confirms the presence of osteoarthritis in the hands and shoulders, which is a degenerative, [id number] condition. It was explained that this condition is separate from any potential systemic autoimmune disease and will not be helped by the planned methotrexate therapy. Pain management with Tylenol is recommended, with NSAIDs like meloxicam or celecoxib as potential future options. Plan I had a detailed discussion with the patient regarding her symptoms and my findings. I explained that while her RENEE is positive, her clinical picture of diffuse bone aches, fatigue, and specific tender points is highly characteristic of fibromyalgia rather than a classic autoimmune disease like lupus, for which she has tested negative. I also noted the presence of osteoarthritis on her exam, which contributes to her pain but is a separate, degenerative process. We discussed that a trial of a true immunosuppressant is the best way to determine if an autoimmune component is driving her symptoms, as a prior positive response to prednisone is non-specific. I proposed a trial of methotrexate, and she was agreeable. I outlined the plan to take six pills once a week along with daily folic acid, explaining that it may take three months to see a benefit. We reviewed potential side effects, primarily GI upset, and the role of folic acid in preventing mouth ulcers. We agreed to a follow-up in four months to assess her response. The patient expressed understanding and appreciation for a new treatment approach. This is my 1st visit with the patient. I spent 40 minutes reviewing the record and labs, taking a history, examining the patient, discussing the treatment plan, ordering diagnostic work up and documenting in the medical record Medications: New folic acid 1 mg PO DAILY 90 tabs 1RF 90 days M32.9 - Systemic lupus erythematosus, unspecified methotrexate sodium 15 mg (6 x 2.5 mg) PO QWEEK 78 tabs 1RF 90 days M35.9 - Systemic involvement of connective tissue, unspecified Coding Level of Care Code Est Pt Level 5 (78801) Complex visit Add On G2211 Diagnoses RENEE positive R76.8 Fibromyalgia M79.7 Polyarticular osteoarthritis M15.9
[2025-09-27 15:20] VITALS: BP 140/74; PULSE 80; O2SAT 99
--- OUTSIDE RECORDS SUMMARY | 2025-09-27 21:22 | XMS_ITS | Patient Health Record ---
Author Organization [facility] Address [address] [place] [address] Care Team Providers Care Refining Equipment Operator Name Role Phone BARTH SAFIA Primary Care Provider [place], NURSING Unavailable [phone] Allergies Allergen (clinical drug ingredient) Drug/Non Drug Allergy documented on EMR Reaction Allergy Type Onset Date Status Penicillin hives and shortness of breath Drug Allergy Active Reason For Referral No Information Medications Medication SIG (Take, Route, Frequency, Duration) Notes Start Date End Date Status Losartan Potassium 50 MG Tablet 1 tablet Orally Once a day; Duration: 90 days Active metFORMIN HCl 500 MG Tablet TAKE 1 TABLET BY MOUTH TWICE A DAY WITH A MEAL orally twice a day; Duration: 90 days Active Atorvastatin Calcium 20 MG Tablet 1 tablet Orally Friday, Friday and Friday Active Ipratropium-Albuterol 0.5-2.5 (3) MG/3ML Solution 1 puff as needed Inhalation every 6 hrs dx J45.998 Active Budesonide 0.25 MG/2ML Suspension 2 mL Inhalation Once a day Active Vitamin C 500 MG Tablet Chewable 1 tablet Orally Once a day Active OneTouch Ultra 2 w/Device Kit as directed applied to skin twice a day; Duration: 30 days 04/19/2025 Active OneTouch Delica Plus [id number] - Miscellaneous as directed applied to skin once daily; Duration: 30 days 04/20/2025 Active OneTouch Ultra Test - Strip as directed In Vitro once daily; Duration: 30 days 04/20/2025 Active Pantoprazole Sodium 40 MG Tablet Delayed Release TAKE ONE TABLET BY MOUTH ONCE DAILY; Duration: 90 Active Doxycycline Monohydrate 100 MG Tablet 1 tablet Orally Twice a day; Duration: 10 days 09/12/2025 Active Immunizations Vaccine Route Administration Date Status Comme nts FLU- FLUVIRIN, PRE-FILLED SY RINGE 0.5 ml Unknown 07/19/2013 Administered Social History Tobacco Use: Social History Observation Description Date Details (start date - stop date) Never Smoker NA - NA Social History Tobacco Use: Social Info Question Answer Notes Smoking Are you a: never smoker Are you a: never smoker Additional Details Category Social Info Options Details General Occupation: disabled due to asthma, 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 exposure: no Past year's travels: None alcohol use: no alcohol use: no occasionally drug use: no drug use: no Coffee/Tea/Soda: no Coffee/Tea/Soda: no 1-2 cups of cof fee qd, no tea, no soda Marital Status Marital Status experience no Living with Living with , childre n Pets dog smokers in household no Problems Problem Type SNOMED Code ICD Code Onset Dates Problem Status W/U Status Risk Notes Problem Diabetes mellitus type II (98606705) Diabetes mellitus type II (250.00) Active confirmed Low Problem Iron deficiency anemia due to chronic blood loss (541100906) Iron deficiency anemia due to chronic blood loss (280.0) Active confirmed Problem Allergic rhinitis due to allergen (97119894) Allergic rhinitis due to allergen (477.8) Active confirmed Problem Asthma (828547149) Asthma (493.90) Active confi rmed with EOSINIPHIL [place]. Need to consider Churg Andrae Problem Gastroesophageal reflux disease (disorder) (654724778) GERD [Gastroesophagea l reflux disease] (530.81) Active confirmed Problem Hernia of abdominal cavity (95471347) Hernia of abdominal cavity NOS (553.9) Active confirmed Problem Sleep apnea (94794928) Sleep apnea (786.09) Active confirmed We briefly spoke about udergoing a PSG. Will discuss it further with PCP Problem Chest pain (77286196) Chest pain, unspecified (786.50) Active confirmed Problem Generalized osteoarthritis (918603960) General osteoarthrosis (715.09) Active confirmed Problem Trigger finger (4550167) Trigger finger (727.03) Active confirmed Problem Fibromyalgia (056841511) Fibromyalgia (729.1) Active confirmed Problem Osteoporosis (21278299) Osteoporosis NOS (733.00) Active confirmed Problem Exacerbation of asthma (275306623) ASTHMA NOS W (AC) EXAC (493.92) Active confirmed Low Problem Arthralgia (75393785) Arthralgia (719.40) Active confirmed Problem Medication monitoring (471047357) Medication monitoring (V58.69) Active confirmed Problem Osteoarthritis (044843275) osteoarthritis (715.90) Active confirmed Problem Mixed anxiety and depressive disorder (151639564) Depression with anxiety (300.4) Active confirmed Problem Fatigue (25083399) Fatigue (780.79) Active conf irmed Problem Lung field abnormal (869174778) Other nonspecific abnormal finding of lung field (793.19) Active confirmed RML, Lingula with scaring Problem Gastro-esophageal reflux disease without esophagitis (494159443) Gastro-esophagea l reflux disease without esophagitis (K21.9) Active confirmed Problem Gastro-esophageal reflux disease without esophagitis (410006122) Gastro-esophagea l reflux disease without esophagitis (K21.9) Active confirmed Problem COPD - Chronic obstructive pulmonary disease (85647042) COPD (chronic obstructive pulmonary disease) (J44.9) Active confirmed Problem Dyspnea (747811598) Dyspnea (R06.00) Active confirmed Problem Anemia due to chronic blood loss (disorder) (560134480) Iron deficiency anemia secondary to blood loss (chronic) (D50.0) Active confirmed Problem Essential hypertension (13545695) Essential (primary) hypertension (I10) Active confirmed Problem Uncomplicated asthma (disorder) (270791726) Unspecified asthma, uncomplicated (J45.909) Active confirmed Problem Type II diabetes mellitus without complication (140442524) Type 2 diabetes mellitus without complications (E11.9) Active confirmed Problem Paresthesia (13563840) Paresthesia (R20.2) Active confirmed Problem Obstructive sleep apnea syndrome (31689443) BRIANA (obstructive sleep apnea) (G47.33) Active confirmed Problem Iron deficiency anemia (75589584) Iron deficiency anemia, unspecified (D50.9) Active confirmed Problem Asthma (470701537) Asthma (J45.909) Active conf irmed Problem Chronic fatigue syndrome (disorder) (00959243) Chronic fatigue, unspecified (R53.82) Active confirmed Problem Exacerbation of asthma (301962366) Asthma exacerbation (J45.901) Active confirmed Problem Osteoarthritis (592093383) Unspecified osteoarthritis, unspecified site (M19.90) Active confirmed Problem Disorder of lipoprotein storage and metabolism (disorder) (200538659) Disorder of lipoprotein metabolism, unspecified (E78.9) Active confirmed Problem Dysthymia (85173676) Dysthymic disorder (F34.1) Active confirmed Problem Asthma (594297693) Other asthma (J45.998) Active confirmed Problem Allergic arthritis (84776541) Other specified arthritis, unspecified site (M13.80) Active confirmed Problem Long-term current use of anticoagulant (591689360) retirement (current) use of anticoagulants (Z79.01) Active confirmed Problem Primary osteoarthritis (998817151) Primary osteoarthritis involving multiple joints (M15.0) Active confirmed Problem Exacerbation of moderate persistent asthma (disorder) (105175947) Moderate persistent asthma with acute exacerbation (J45.41) Active confirmed Problem Menopausal and perimenopausal disorder (N95.9) Active confirmed Problem Hyperlipidaemia (68095776) Hyperlipidemia, unspecified hyperlipidemia type (E78.5) Active confirmed Problem Allergic rhinitis (33362116) Allergic rhinitis, unspecified allergic rhinitis trigger, unspecified rhinitis seasonality (J30.9) Active confirmed Problem Fibromyalgia (773023863) Fibromyalgia syndrome (M79.7) Active confirmed Problem Essential hypertension (95026964) Hypertension, unspecified type (I10) Active confirmed Problem Type II diabetes mellitus without complication (708225414) Type 2 diabetes, HbA1c goal < 7% (E11.9) Active confirmed Vital Signs Blood pressure diastolic 83 mm Hg 05/18/2025 Height 61 in 05/18/2025 Blood pressure systolic 117 mm Hg 05/18/2025 Weight 196 lbs 05/18/2025 BMI 37.03 kg/m2 05/18/2025 Encounters Encounter Location Date Provider Diagnosis [facility] [address] [place] [id number] 11/24/2024 SAFIA BARTH Gastro-esophageal reflux disease without esophagitis K21.9 ; Hypertension, unspecified type I10 ; Unspecified asthma, uncomplicated J45.909 ; Iron deficiency anemia secondary to blood loss (chronic) D50.0 ; BRIANA (obstructive sleep apnea) G47.33 ; Chronic fatigue, unspecified R53.82 ; Type 2 diabetes mellitus without complications E11.9 ; Encounter for screening for malignant neoplasm of breast, unspecified screening modality Z12.39 ; Right wrist pain M25.531 and Pleuritic chest pain R07.81 [facility] [address] [place] [address] 05/18/2025 SFAIA BARTH Gastro-esophageal reflux disease without esophagitis K21.9 ; Hypertension, unspecified type I10 ; Iron deficiency anemia secondary to blood loss (chronic) D50.0 ; Type 2 diabetes mellitus without complications E11.9 ; Unspecified asthma, uncomplicated J45.909 ; RENEE positive R76.8 ; Encounter for screening mammogram for malignant neoplasm of breast Z12.31 ; Osteoporosis screening Z13.820 ; Polyarthralgia M25.50 and Disequilibrium R42 [address] [address] 05/27/[address] [address] 05/25/[address] [address] 05/23/[address] [address] 05/20/2025 SAFIA BARTH RENEE positive R76.[address] [address] 05/19/[address] [address] 04/26/[address] [address] 04/20/[address] [address] 04/20/[address] [address] 04/20/[address] [address] 04/19/[address] [address] 01/13/2025 SAFIA BARTH [facility] [address] [place] [address] 12/01/2024 SAFIA [facility] [address] [place] [address] 09/12/2025 SAFIA BARTH Assessments Encounter Date Diagnosis (ICD Code) Assessment Notes Treatment Notes Treatment Clinical Notes Section Notes 11/24/2024 Gastro-esophageal reflux disease without esophagitis (ICD-10 - K21.9) Stable. Continue PPI check B12 folic acid level yearly as well she is on medication diet weight loss and a bed elevation 11/24/2024 Hypertension, unspecified type (ICD-10 - I10) Blood pressure well-controlled no change in therapy check EKG normal sinus rhythm no change 05/18/2025 Gastro-esophageal reflux disease without esophagitis (ICD-10 - K21.9) Continue pantoprazole. Check B12 and folic acid in 6 months last checked normal. 05/20/2025 RENEE positive (ICD-10 - R76.8) 05/18/2025 Hypertension, unspecified type (ICD-10 - I10) Blood pressure stable well-controlled no change in therapy 05/18/2025 Iron deficiency anemia secondary to blood loss (chronic) (ICD-10 - D50.0) Does not appear iron deficient at the present time we will check a CBC 11/24/2024 Unspecified asthma, uncomplicated (ICD-10 - J45.909) Physical exam normal as needed beta-2 inhaled steroid with her nebulizer as needed 11/24/2024 Iron deficiency anemia secondary to blood loss (chronic) (ICD-10 - D50.0) Physical exam looks normal. Check CBC 05/18/2025 Type 2 diabetes mellitus without complications (ICD-10 - E11.9) Above medication check A1c goal less than 7.5 diet exercise weight loss recommended 05/18/2025 Unspecified asthma, uncomplicated (ICD-10 - J45.909) Follow-up inhalers continue physical exam normal low symptoms at the present time no wheezing on exam 11/24/2024 BRIANA (obstructive sleep apnea) (ICD-10 - G47.33) Continue CPAP 11/24/2024 Chronic fatigue, unspecified (ICD-10 - R53.82) 05/18/2025 RENEE positive (ICD-10 - R76.8) Positive RENEE we will recheck RENEE titer. Also check double-stranded DNA check sed rate CRP. Letter rheumatoid factor and anti-CCP antibody level as well 05/18/2025 Encounter for screening mammogram for malignant neoplasm of breast (ICD-10 - Z12.31) Mammogram q. year 11/24/2024 Type 2 diabetes mellitus without complications (ICD-10 - E11.9) Of medication check A1c goal less than 7.5 11/24/2024 Encounter for screening for malignant neoplasm of breast, unspecified screening modality (ICD-10 - Z12.39) 05/18/2025 Osteoporosis screening (ICD-10 - Z13.820) Calcium plus vitamin D twice daily bone density every 2 to 3 years 05/18/2025 Polyarthralgia (ICD-10 - M25.50) Etiology of patient's symptoms unclear at the present time. Certainly question of polymyositis. This complaint of muscle weakness and pain proximal hip girdle and shoulder girdles. Recheck labs as ordered question for methotrexate consult rheumatology check CK check sed rate Check aldolase. Will hold statin for about a month we will also check a serum cortisol rule out adrenal insufficiency 11/24/2024 Right wrist pain (ICD-10 - M25.531) Probable strain will check an x-ray to rule out fracture 11/24/2024 Pleuritic chest pain (ICD-10 - R07.81) Exam pretty unremarkable O2 sat normal no signs of PE. Will check CBC chest x-ray O2 sat check EKG sinus rhythm no change 05/18/2025 Disequilibrium (ICD-10 - R42) Neurologically intact will check a head CT check routine labs no evidence of an arrhythmia. Cardiac echo normal 2023 EKG normal sinus rhythm now Plan Of Treatment Pending Test Test Name Order Date XR Foot Left 2 views 10/14/2023 XR Foot Right 2 views 10/14/2023 XR Ankle Right 3 views 10/14/2023 XR Ankle Left 3 views 10/14/2023 RAST mold panel([facility] only) 12/27/2013 Future Test Test Name Order Date CT CHEST WITHOUT CONTRAST 08/21/2016 CT ABDOMEN & PELVIS with oral contrast, no IV contrast 08/21/2016 Sleep Study (Home) 09/09/2016 FERRITIN 12/03/2023 FOLIC ACID 12/03/2023 RETICULOCYTE COUNT 12/03/2023 VITAMIN B12 12/03/2023 Vitamin [id number] 01/06/2024 Folate (Folic Acid), Serum-857456 2023 Cortisol-804577 05/18/2025 Sjogren's Ab, Anti-SS-A/-SS-B-[id number] 10/2024 Antiscleroderma-70 Antibodies-800907 10/2024 Anti-dsDNA Antibodies-[id number] 05/20/2025 Next Appt Details Provider Name:SAFIA ONTIVEROS, 12/07/2025 01:45:00 PM, [address] [place], [address], Insurance Providers Payer Name Payer Address Payer Phone Subscriber Number Group Number Insured Name Patient Relationship to Insured Coverage Start Date Coverage End Date MEDICARE [employer] [address] [place] [address] [id number] MELINDAQING RASHAD Maldonado Self - patient is the insured [employer] [facility] [address] [place] [address] [phone] [id number] RAHSAD TRINIDAD Self - patient is the insured Medical (General) History Medical History History ICD Code htn diabetic hernias Varicose vein status post sclerotherapy History of Polanco's esophagus History of prothrombin gene mutation COVID x 1 Hernia repair Vaccination status COVID 4 shots. Flu sh ot q. year. Tdap 2018. COPD Dr. Ohara GERD Hypertension Type 2 diabetes Bone scan December [address] Aram Connolly Status post panniculectomy Echocardiogram December 2021 le ft ventricular size normal EF 60% otherwise negative Epig PainLUQ pain-Lipasenl, EGD=Moderate nonerosive antritis-Bx esophagitis and gastritis-NO [id number] barrettsmetaplasia-Rec avoid NSAID iron deficiency anemia Hgb 10.2/33.4 iron 19.0 abnormal RBC morphology//[id number],WBCnl asthma (disablity) reflux/hiatal hernia: EGD 2001 IBS fibromyalgia obesity elevated LFT's Type 2 diabetes - dx. ~ allergies depression Kidney stones mononucleosis osteoarthritis osteoporosis pneumonia tuberculosis/positive ppd pulmonary embolism anemia HTN headaches [id number] 07/05 GERD Chronic kidney disease. Dr. Calvin. Nephr ologist Hyperlipidemia COPD. Dr. Ohara pulmonary History of prothrombin gene mutation History of pulmonary embolus 2009. Histo ry of DVT. Bone scan December 2022 negative History of Polanco's esophagus. Dr. Weber son gastroenterology History of elevated liver function tests Status post herniorrhaphy Echo December 2021 normal Depression SAMPLE CLERK Hematology Dr. Christie Factor V Leyden deficiency History of IBS History of right and left lower extremit y sclerotherapy Cardiac echo October 2023 normal Hematology oncology consultation February [facility] Colonoscopy April 2024 negative recheck [address] Lim Pulmonary follow-up March [address]25 Dr. Silvino griggs Rheumatology consult 2023 Dr Pattie Rubi [facility] negative autoimmune Surgical History Surgery Date(Month/Year) sm bowel blockage 2009 L5 disc shaved 1995 tubal ligation 1995 [address] repair of hernia mesh Dr. Du ventral hernia repair 08/08/05 laparotomy: neg for intussception (Dr. Sharla calderón), 'enteritis' 01/2005 appendix tubes tyded Flex to 45 cm 2001 appendectomy 1993 Upper Endoscopy to duodenum 4cm sliding hiatal hernia and retained 2001 hernia repair Hospitalization History Reason Date(Month/Year) see above small bowel obstruction (cleared without surgical intervention) 10/2014 [facility] ? hyperdynamic heart 05/2016
--- OUTSIDE RECORDS SUMMARY | 2025-09-27 21:23 | XMS_ITS ---
Author Name [facility] Organization Unknown Encounters Encounter Type Encounter Reason Primary Diagnosis Location Date Ambulatory [facility] 07/30/2024 Care Team Organization Name Specialty Phone Email Start Date End Da te [facility] 2024
--- OUTSIDE RECORDS SUMMARY | 2025-09-27 21:23 | XMS_ITS | Encounter Summary ---
Author Organization [facility] Address [address] [place] [address] Care Team Providers Care Musical Instrument Mechanic Name Role Phone Bo Hayden Primary Care Provider [phone] Encounter Details Date Type Department Care Team (Late st Contact Info) Description 02/16/2024 Orders Only [facility] Xray [address] [place] [address] Marco Antonio Person MD [address] [place], [place] [id number] Social History Tobacco Use Types Packs/Day Years [...] on filedocumented in this encounter Care Teams Musical Instrument Mechanic Relationship Specialty Start Date End Date Bo Hayden PCP - General Internal Medicine 10/04/19 documented as of this encounter
--- OUTSIDE RECORDS SUMMARY | 2025-09-27 21:23 | XMS_ITS | Clinical Summary ---
Author Organization Patient Business Ser [facility] Address [address] [place] [address] Care Team Providers Care J2Ee Java Developer Name Role Phone Bo Hayden MD Primary Care Provider [phone] Surgical History Surgery Date Site/Laterality Comments TUBAL LIGATION 1995 PROCEDURE: HISTORICAL TUBAL LIGATION APPENDECTOMY PROCEDURE: HISTORICAL APPENDECTOMY SECTION 1994 PROCEDURE: HISTORICAL DELIVERY BACK SURGERY 1995 PROCEDURE: HISTORICAL BACK SURGERY; COMMENT: L5 disc ESOPHAGOGASTRODUODENOSCOPY 2001 PROCEDURE: DC ESOPHAGOGASTRODUODENOSCOPY TRANSORAL DIAGNOSTIC ABDOMINAL SURGERY 01/2005 PROCEDURE: DC UNLISTED PROCEDURE ABDOMEN PERITONEUM & OMENTUM; COMMENT: enteritis HERNIA REPAIR 07/2005 PROCEDURE: HISTORICAL HERNIA REPAIR/JODIE; COMMENT: then with repair of mesh 08/2005 Medical History Medical History Date Comments Obstructive sleep apnea 03/05/2018 DX:Obstr uctive sleep apnea Asthma 03/05/2018 DX:Asthma Diabetes mellitus type 2, uncomplicated ([facility] V24, [facility] V28) 03/05/2018 DX:Diabetes mellitus type 2, uncomplicated ([facility]) 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 DX:Hy perkinetic heart disease Chronic obstructive pulmonar y disease (COPD) ([facility] V24, [facility] V28) 03/05/2018 DX:Chronic obstructi ve pulmonary disease (COPD) ([facility]) GERD (gastroesophageal reflux disease) 03/05/2018 DX:GERD (gastroesophageal reflux disease) Barretts esophagus 03/24/2018 DX:Barretts e sophagus History of pulmonary embolism 03/12/2018 DX :History of pulmonary embolism Irritable bowel syndrome (IBS) 03/24/2018 D X:Irritable bowel syndrome (IBS) Fibromyalgia 03/24/2018 DX:Fibromyalgia Morbid obesity with BMI of 4 0.0-44.9, adult ([facility] V24, [facility] V28) 03/24/2018 DX:Morbid obesity wit h BMI of 40.0-44.9, adult ([facility]) Allergic rhinitis 03/24/2018 DX:Allergic rh initis Depression [...] on file Sexual Orientation Not on file Plan of Treatment Health Maintenance Due Date Last Done Comments Breast Cancer Screening 1966 Colorectal Cancer Screening: Colonoscopy 1966 Diabetes: Annual GFR (Glomer ular Filtration Rate) 1966 Diabetes: Annual Foot Exam 1976 Diabetes: Annual Retina Eye Exam 1976 DTaP,Tdap,and Td Vaccines (1 - Tdap) 1985 Hepatitis B Vaccines (1 of 3 - 19+ 3-dose series) 1985 Pneumococcal Vaccine: 50+ Ye ars (1 of 2 - PCV) 1985 Cervical Cancer Screening: P ap Smear 1987 RSV Immunization Adult Patie nts (1 - Risk 50-74 years 1-dose series) 2016 Zoster Vaccines (1 of 2) 2016 Cholesterol Screening (Lipid Panel) 11/29/2021 HIV Screening 11/29/2021 Hepatitis C Screening 11/29/2021 Osteoporosis Screening (Bone Density Screening) 11/29/2021 Social Influencers of Health Screening 11/29/2021 Hypertension/CHF/CAD Annual BMP Blood Test 10/02/2022 Diabetes: Annual Urine Albumin-Creatinine Ratio (uACR) 10/05/2022 Diabetes: Blood Sugar Contro l Test (HGBA1C) 10/05/2022 Depression Screening 10/20/2024 COVID-19 Vaccine ( - 2024-2 6 season) 2025 Influenza Vaccine (#1) 2025 HIB Vaccines Aged Out No longer eligi [...] age to complete this topic Meningococcal B Vaccine Aged Out No l onger eligible based on patient's age to complete this topic RSV Immunization Patients Un mel 20 months Aged Out No longer eligible b ased on patient's age to complete this topic Varicella Vaccines Aged Out No longer eligible based on patient's age to complete this topic Care Teams J2Ee Java Developer Relationship Specialty Start Date End Date Bo Hayden MD PCP - General Internal Medicine 05/31/16
--- OUTSIDE RECORDS SUMMARY | 2025-09-27 21:23 | XMS_ITS | Encounter Summary ---
Author Organization [facility] Address [address] [place] [address] Care Team Providers Care Tractor Crane Operator Name Role Phone Bo Hayden Primary Care Provider [phone] Encounter Details Date Type Department Care Team (Late st Contact Info) Description 02/28/2024 Orders Only [facility] Critical Care [address] [place] [address] Scott Rico MD [address] [place], [place] [id number] Social History Tobacco Use Types Packs/Day Years [...] on filedocumented in this encounter Care Teams Tractor Crane Operator Relationship Specialty Start Date End Date Bo Hayden PCP - General Internal Medicine 10/04/19 documented as of this encounter
--- OUTSIDE RECORDS SUMMARY | 2025-09-27 21:24 | XMS_ITS | Clinical Summary ---
Author Organization [facility] Address [address] [place] [id number] Phone Care Team Providers Care Environmental Analyst Name Role Phone Unavailable Primary Care Provider Unavailabl e Social History Tobacco Use Types Packs/Day Years Used Date Smoking Tobacco: Never Assessed Education Answer Date Recorded Are you interested in more education? Not on mechelle e 03/03/2023 Are you concerned about learning? Not on file 03/03/2023 No 03/03/2023 No 03/03/2023 Digital Access Answer Date Recorded No 03/16/2023 No 03/16/2023 No 03/16/2023 Reliable internet access at home? Not on file 03/16/2023 Device with a working camera? Not on file Comments Unknown Sex and Gender Information Value Date Recorded Sex Assigned at Not on file Legal Sex Female 6:44 PM EST Gender Identity Not on file Sexual Orientation Not on file Plan of Treatment Not on file Medical Devices Not on file Additional Source Comments The information contained in this document represents components of the legal health record. It is not the complete legal health record.[facility]
--- OUTSIDE RECORDS SUMMARY | 2025-09-27 21:24 | XMS_ITS | Patient Health Record ---
Author Organization [facility] Address [address] [place] [address] Care Team Providers Care Fishing Game Warden Name Role Phone Bo Hayden MD Primary Care Provider Unavail able Cristian Jacob Unavailable [phone] Allergies Allergen (clinical drug ingredient) Drug/Non Drug Allergy documented on EMR Reaction Allergy Type Onset Date Status Penicillin Unknown Drug Allergy Active Adhesive Tape Unknown Drug Allergy Act víctor Reason For Referral No Information Medications Medication SIG (Take, Route, Frequency, Duration) Notes Start Date End Date Status Vicodin 5-300 MG 1 tablet as needed O rally every 6 hrs Active Protonix 40 MG 1 tablet Orally Once a day; Duration: 30 day(s) Active Symbicort 80-4.5 MCG/ACT 2 puffs Inhalat ion Twice a day Active Qvar 40 MCG/ACT 1 puff Inhalation Tw ice a day Active Singulair 10mg Activ e Metformin & Diet Manage Prod 500 MG as directed Orally Active Lisinopril-hydroCHLOROthi azide 20-12.5 MG 1 tablet Orally Once a day; Duration: 30 day(s) Active predniSONE 10 MG as directed Orally Active Extra-Depth Diabetic Shoes with 3 Pair Custom heat-molded multi-density innersoles . 1pair shoes/3sets inserts . .; Duration: 1 year 04/09/2013 Active Lactic Acid E 10-3500 %-UNT/30GM as directed Externally bid; Duration: 30 days 04/09/2013 Active ProAir HFA 108 (90 Base) MCG/ACT 2 puffs as needed Inhalation every 4 hrs Active DuoNeb 0.5-2.5 (3) MG/3ML 3 ml Inhalatio n Four times a day Active Lantus 100 UNIT/ML 0.02 ml Subcutaneous Once a day; Duration: 30 day(s) Active Problems Problem Type SNOMED Code ICD Code Onset Dates Problem Status W/U Status Risk Notes Problem Arthralgia (20026911) Arthralgia (719.40) Active confirmed Problem Disorder of joint of ankle and/or foot (122371464) Arthritis - Degenerative (719.97) Active confirmed Problem Type I diabetes mellitus without complication (780225554) Diabetic - IDDM (250.01) Active confirmed Problem Hammer toe (888616006) Hammer toe (735.4) Active confirmed Problem Disorder of sebaceous gland (9790134) Xerosis (706.8) Active confirmed Plan Of Treatment Pending Test Test Name Order Date X ray : Foot, left 3V 04/09/2013 Insurance Providers Payer Name Payer Address Payer Phone Subscriber Number Group Number Insured Name Patient Relationship to Insured Coverage Start Date Coverage End Date [employer] [address] [place] [address] [phone] [id number] Billie Brar Self - patient is the insured Medicare National [employer] [address] [facility] [place] [phone] [id number] Billie Brar Self - patient is the insured Medical (General) History Medical History History ICD Code anemia Arthritis asthma chicken pox Hiatal hernia lyme disease osteoporosis reflux sinus conditions tuberculosis diabetes mellitus Surgical History Surgery Date(Month/Year) intestinal surgery 2004, 2009 hernia x2 2005
--- OUTSIDE RECORDS SUMMARY | 2025-09-27 21:24 | XMS_ITS | Clinical Summary ---
Author Organization [facility] Address [address] [place] [address] Care Team Providers Care Pressfitter Name Role Phone Bo Hayden Primary Care Provider [phone] Allergies Active Allergy Reactions Criticality Noted Date [...] embolism 03/12/2018 Diabetes mellitus type 2, uncomplicated 03/05/20 18 Chronic obstructive pulmonary disease (COPD) Asthma 03/05/2018 [...] 89 09/06/2024 11:03 AM EST Temperature 35.8 C (96.5 F) 06/18/2024 11:20 AM EDT Respiratory Rate 16 06/04/2024 1:10 PM EDT [...] Screening 1966 Pap Smear 1966 Sigmoidoscopy 1966 Medicare AWV 1967 Ophthalmology Exam 1976 Urine Microalbumin 1976 Hepatitis B Vaccines (1 of 3 - 19+ 3-dose series) 1985 Mammogram 2006 Hemoglobin A1C 08/30/2022 02/27/2022 Alcohol/Substance Use Screening 10/20/2024 4 Depression Screening and Follow-Up 10/20/2024 Social Drivers of Health Dorita ual Screening 10/20/2024 Influenza Vaccine (#1) 2025 4, 08/26/2023, 08/17/2022, Additional history exists Basic Metabolic Panel 06/04/2025 06/04/2024 , 07/09/2023, 02/28/2022, Additional history exists COVID-19 Vaccine ( - 2024-2 6 season) 2025 07/11/2022, 03/28/2022, 08/08/2021, Additional history exists DTaP,Tdap,and Td Vaccines (2 - Td or Tdap) 08/28/2034 08/28/2024 Zoster Vaccines Completed 11/19/2018, 08/21/2018 Pneumococcal Vaccine: 50+ Years Completed 3 Medical Devices Implanted Type Area Veterinarian Poultry Device Identifier Shelf Expiration Date Model / Serial / Lot Mesh Rectangle [id number] Phasix - [id number] Implanted:Qty: 1 on 05/24/2020 by Mathew Armsrtong MD at [facility] Mesh Abdomen [employer] 06/16/2021 [id number] / / [id number] Mesh Rectangle [id number] Phasix - [id number] Implanted:Qty: 1 on 02/27/2022 by Mathew Armstrong MD at [facility] Mesh N/A: Abdomen [employer] 07/17/2022 [id number] / / [id number] Mesh Surgica Enform Intraperitoneal Biomaterial [id number] - [id number] - [id number] Implanted:Qty: 1 on 06/03/2024 by Javad Valle MD at [facility] Mesh N/A: Abdomen W L GORE 08/05/2026 [id number] / [id number] / Mesh Ventral Hernia Soft Square [id number] - [id number] Implanted:Qty: 1 on 06/03/2024 by Javad Valle MD at [facility] Mesh N/A: Abdomen [employer] 09/16/2028 [id number] / / [id number] Procedures * Due to [place] state law, this organization might not be sharing negative HIV tests. Procedure Name Priority Date/Time Associated Diagnosis Comments BASIC METABOLIC PANEL Routine 06/04/2024 3:52 AM EDT HEMOGLOBIN A1C STAT Add-on 02/27/2022 8:31 AM EDT from Last 3 Months or Most Recently Relevant to Health Maintenance Results * Due to [place] state law, this organization might not be sharing negative HIV tests. * (ABNORMAL) Basic Metabolic Panel (06/04/2024 3:52 AM EDT) NA 138 135 - 145 mmol/L 06/04/2024 4:57 AM EDT [facility] K 4.3 3.5 - 5.3 mmol/L 06/04/2024 4:57 AM EDT [facility] Cl 107 98 - 107 mmol/L 06/04/2024 4:57 AM EDT [facility] CO2 22(L) 24 - 32 mmol/L 06/04/2024 4:57 AM T [facility] BUN 13 7 - 23 mg/dL 06/04/2024 4:57 AM EDT [facility] Creatinine 0.88 0.50 - 1.20 mg/dL 06/04/2024 4:57 AM T [facility] Glucose 101(H) 65 - 99 mg/dL 06/04/2024 4:57 AM T [facility] Calcium 8.3(L) 8.6 - 10.5 mg/dL 06/04/2024 4:57 AM EDT [facility] Anion Gap 9 5 - 15 06/04/2024 4:57 AM EDT [facility] eGFR 76 >=60 mL/min/1. 73m2 06/04/2024 4:57 AM [facility] Comment:The estimated glomer ular filtration rate (eGFR) is calculated using a new formula developed by the NKF-ASN task force to eliminate race-based correction factors. The new formula uses serum/plasma creatinine, age, and gender to determine eGFR. A value below 60mls/min might indicate kidney disease and will be flagged. For additional information, see Shea et al, Am J Kidney Dis. 2021;79(2):268- 288, A Unifying Approach for GFR estimation: Recommendations of the NKF-ASN Task Force on Reassessing the Inclusion of Race in Diagnosing Kidney Disease . Blood Structure of peripheral vein / Unknown Venipuncture / Unknown 06/04/2024 3:52 AM EDT 06/04/2024 4:26 AM EDT us Javad Valle MD LAB BLOOD ORDERABLES Mabel l Result Performing Organization Address [facility]/ZIP Co de Phone Number [facility] [address] [place] [id number], * (ABNORMAL) Hemoglobin A1c (02/27/2022 8:31 AM EDT) Hemoglobin A1C 5.8(H) <5.7 % of total Hgb 02/28/2022 7:39 AM EDT [facility] Comment: For someone without known diabetes, a [...] (MG/DL) 120 mg/dL 02/28/2022 7:39 AM EDT [facility] eAG (MMOL/L) 6.6 mmol/L 02/28/2022 7:39 AM EDT [facility] Blood Structure of peripheral vein / Unknown Venipuncture / Unknown 02/27/2022 8:31 AM EDT 02/27/2022 8:33 AM EDT Narrative [facility] [place] - 02/28/2022 7:39 AM EDT [facility] Received Date:[id number] us Mathew Armstrong MD LAB BLOOD ORDERABLES Final Re sult [facility] [address], [place] [address], [place] [phone] [employer] [facility] [address], [address] [place] [address], [place] [phone] from Last 3 Months or Most Recently Relevant to Health Maintenance Insurance MEDICARE [facility] Advance Directives Documents on File Type Date Recorded Patient Loom Doffer Expl anation Health Care Proxy 05/24/2020 7:04 [...] Alternate Health Care Agen t Care Teams Pressfitter Relationship Specialty Start Date End Date Bo Hayden PCP - General Internal Medicine 10/04/19
--- OUTSIDE RECORDS SUMMARY | 2025-09-27 21:24 | XMS_ITS | Encounter Summary ---
Author Organization [facility] Address [address] [place] [address] Care Team Providers Care Tank Hoop Bender Name Role Phone Bo Hadyen Primary Care Provider [phone] Encounter Details Date Type Department Care Team (Late st Contact Info) Description 07/19/2021 Orders Only [facility] Interventional Radiology [address], [place] [phone] Kristyn Almanza MD [address], [place] [phone] Social History Tobacco Use Types Packs/Day Years [...] on filedocumented in this encounter Care Teams Tank Hoop Bender Relationship Specialty Start Date End Date Bo Hayden PCP - General Internal Medicine 10/04/19 documented as of this encounter
== END 2025-09-27 16:12 | disposition home or self-care (01) ==
LOC: HO.RHES 15:06
PROVIDERS: PCP Internal Medicine; Visit Provider Student in an Organized Health Care Education/Training Program
DX: R76.0 Raised antibody titer (principal); M79.7 Fibromyalgia; M15.9 Polyosteoarthritis, unspecified
CPT/HCPCS: 99215; G2211

== ENCOUNTER → 2025-09-27 15:05 | Outpatient (BNVA) | payer MEDICARE, SELFPAY | PROVIDERS: PCP Internal Medicine; Visit Provider Student in an Organized Health Care Education/Training Program | DX: R76.89 Other specified abnormal immunological findings in serum (principal); M79.7 Fibromyalgia; M15.9 Polyosteoarthritis, unspecified | CPT/HCPCS: 99212 ==